=== PATIENT | male | born 1950 | race African-American/Black ===

== ENCOUNTER 2017-01-22 11:08 | Inpatient (IN) | payer MEDICARE, MEDICAID ==
[2017-01-22 12:45] LABS: Lactic Acid - Sepsis 1.7 mmol/L (0.5-2.2)
[2017-01-22 12:51] LABS: ALT (SGPT) 14 U/L (8-55); AST (SGOT) 20 U/L (5-34); Alkaline Phosphatase 71 U/L (40-150); Anion Gap 14 mmol/L (10-20); BUN (Urea Nitrogen) 23 mg/dL (8.4-25.7); Bilirubin, Total 0.6 mg/dL (0.2-1.2); Calc. Creatinine Clearance 0 mL/min (70-130); Carbon Dioxide 25 mmol/L (23-31); Chloride 102 mmol/L (98-107); Estimated GFR-MDRD 65; Globulin 3.2 g/dL (2.4-3.5); Lipase 108 U/L (8-78); Protein, Total 7.3 g/dL (5.8-8.1)
--- NOTE | 2017-01-22 12:53 | ULT ---
RIGHT LOWER EXTREMITY VENOUS ULTRASOUND: Comparison: None. History: Right lower extremity pain and edema. Technique: Multiplanar grayscale and color doppler images were obtained in a right lower extremity v enous ultrasound. Spectral analysis of the doppler waveforms were performed. FINDINGS: There is visible partially occlusive thrombus in the mid right superficial femoral vein extending do wn to the popliteal vein. The more proximal venous structures including the common femoral vein and profunda femoral veins show no evidence of thrombus. The right posterior tibial vein and greater sap henous vein are patent without evidence of thrombus. IMPRESSION: DVT seen within the superficial femoral vein extending down to the popliteal vein. POS: DHAVAL
[2017-01-22] MEDS ORDERED: Ondansetron HCl/PF 4 MG/2 ML Vial ONE (13:07)
[2017-01-22] MEDS ORDERED: Piperacillin/Tazobactam 4.5 GM VIAL ONE (13:15)
--- NOTE | 2017-01-22 13:19 | CT ---
CT ABDOMEN AND PELVIS WITHOUT CONTRAST: HISTORY: Lower abdominal pain with fever since last night. The patient has a history of a renal transplant i 2014 and is still on immunosuppressants for the transplant. COMPARISON: None. TECHNIQUE: Multiple contiguous axial images were obtained in a CT of the abdomen and pelvis without contrast. Coronal reformats were performed. FINDINGS: The [place] kidneys are small and atrophic. A transplant kidney is seen at the right aspect of the p shilpa. This appears relatively hypodense, compared to normal renal parenchyma. The liver, gallblad elaina, adrenal glands, spleen, and pancreas are unremarkable on this limited noncontrast examination. Scattered diverticula are seen in the colon. The small bowel and appendix are unremarkable. No abd ominal or pelvic lymphadenopathy is present. Degenerative changes are seen in the supine. The visualized inferior thorax and abdominal wall soft tissues are unremarkable. IMPRESSION: 1. Diverticulosis. 2. Questionable hypodense appearance of the renal transplant. Correlate with laboratory values. 3. Small atrophic [place] kidneys. POS: DHAVAL
[2017-01-22] MEDS ORDERED: Vancomycin HCl 1.25 GM, Admixture Fee 1 EACH in Sodium Chloride 0.9% 250 ML 250 ML IVPB SCH (13:30)
[2017-01-22 13:52] LABS: #Lymphocytes 0.6 thou/uL (1.20-3.40); #Monocytes 0.8 thou/uL (0.11-0.59); %Basophils 0.1 % (0.0-1.0); %Eosinophils 0.1 % (0.0-10.0); %Monocytes 8.9 % (0.0-10.0); Hematocrit 42.1 % (42.0-52.0); Mean Platelet Volume 8.4 fL (7.4-10.4); Red Blood Cell (RBC) Count 4.54 mill/uL (4.70-6.10); White Blood Cell (WBC) Count 9.4 thou/uL (4.8-10.8)
[2017-01-22] MEDS ORDERED: Ondansetron HCl/PF 4 MG/2 ML Vial IVP PRN (13:58)
[2017-01-22] MEDS ORDERED: Calcium Carbonate 500 MG ChewTAB PO PRN (13:58)
[2017-01-22] MEDS ORDERED: Mag-Al 1200 mg/1200 mg/30 ML UDCUP PO PRN (13:58)
[2017-01-22] MEDS ORDERED: Milk Of Magnesia 30 ML UDCUP PO PRN (13:58)
[2017-01-22] MEDS ORDERED: Cefepime 2 GM in Sodium Chloride 0.9% 100 ML IVPB SCH (14:15)
--- NOTE | 2017-01-22 14:54 | RAD ---
RADIOGRAPH CHEST 1 VIEW: Date: 01-22-17 Time: 2:16 p.m. HISTORY: 66-year-old male with hypoxia and fever. COMPARISON: None. FINDINGS: The lung apices are clear. No pneumothorax. Inspiration is shallow. The left hemidiaphragm is shaggy , and there is increased attenuation at the left base. There are horizontal streaky densities at the right base. No pulmonary edema. The cardiac shadow is obscured inferior to the diaphragm. IMPRESSION: 1. Poor visualization of the bilateral lower lobes due to shallow inspiration and due to the fact th at this is a single view study. 2. Airspace density at left lower lobe. 3. Subsegmental atelectasis and/or scar at right base. 4. A lateral view would be useful to better evaluate the posterior lung bases. [place] POS: DHAVAL
[2017-01-22] MEDS ORDERED: cycloSPORINE, Modified 25 MG CAP PO SCH (15:00)
[2017-01-22] MEDS ORDERED: HYDROcodone/Acetaminophen 5/325 mg Tablet ONE (15:07)
[2017-01-22 15:24] LABS: Bilirubin Negative (Negative); Blood, Urine Negative (Negative); Glucose, Urine (Dipstick) Negative (Negative); Ketone, Urine Negative (Negative); Nitrite Negative (Negative); Protein, Urine (Dipstick) Negative (Neg-Trace); Urobilinogen 0.2 mg/dL (0.2-1.0)
[2017-01-22 15:29] LABS: Bacteria/HPF None Seen HPF (None Seen); Hyaline Casts/LPF 0-3 HYALINE CAST LPF (0-3 Hyaline); RBC/HPF 0-3 HPF (0-3); Squamous Epithelial None Seen HPF (0-3); WBC/HPF 0-3 HPF (0-3)
[2017-01-22 15:54] VITALS: BMI 28.0
[2017-01-22] MEDS: HYDROcodone/Acetaminophen 5/325 mg Tablet PO PRN ×2 (16:07→20:28)
[2017-01-22] MEDS: Sodium Chloride 0.9% 1,000 ML IV SCH ×2 (16:08→21:27)
[2017-01-22] MEDS: Cefepime 2 GM in Sodium Chloride 0.9% 100 ML IVPB SCH (16:11)
--- NOTE | 2017-01-22 16:19 | HP-2 ---
DATE OF ADMISSION: 01/21/2017 The patient is seen at 1400 hours. CODE STATUS: FULL. PRIMARY CARE PHYSICIAN: Rabia Hurd M.D. ADMITTING ATTENDING: Bethany Pearce D.O. ADMITTING RESIDENT: Rabia Hurd M.D., PGY-3. HISTORIAN: Patient. CHIEF COMPLAINT: Nausea, leg pain, fever. HISTORY OF PRESENT ILLNESS: Patient is a very pleasant 66-year-old black male with past medical history significant for renal transplant secondary to renal failure from hypertension, treated hep C and childhood polio with limited mobility, who presents to the Emergency Department with 1 day history of nausea and vomiting as well as right lower extremity pain. Patient states that yesterday evening, he noticed that he was having some pain in his right groin area as well as going down to his right lower leg, which he noticed was swollen and warm. He went to bed hoping that the pain would improve, when woke up this morning, and his leg looked much worse and it was red. He called his brother this morning stating that he was not feeling very well and had 2 episodes of mucus emesis last night. He had a temperature of 101 at home. On ambulance, he had a temperature of 101.5. He is being treated with immunosuppressive therapy including Myfortic, prednisone, and cyclosporine for his renal transplant. In the Emergency Department, patient was treated for his immunosuppressed fever with vancomycin and Zosyn. He was also found to have a right lower extremity DVT on duplex ultrasound. In the Emergency Department, he also received morphine, Zofran, and a normal saline bolus at 30 mL per kilogram. PAST MEDICAL HISTORY: 1. Chronic kidney disease stage 3, status post renal transplantation. 2. History of renal failure secondary to hypertension. 3. Hypertension. 4. Benign prosthetic hyperplasia. 5. Lower back spasms. 6. Severe degenerative joint disease. 7. Immunosuppressed secondary to immunosuppressive therapy for renal transplantation. 8. Hepatitis C treated and cured. 9. Childhood history of polio limiting mobility. PAST SURGICAL HISTORY: 1. Three knee replacements (2 of the left). 2. Renal transplantation. 3. Bilateral cataract surgery, multiple times. 4. Hemorrhoidectomy. 5. Thyroidectomy. 6. Three AV fistulas. ALLERGIES: NSAIDS, SULFA, HEPARIN. MEDICATIONS: 1. Viagra 25 mg as needed prior to sexual activity. 2. Flomax 0.4 mg daily. 3. Prednisone 5 mg p.o. daily. 4. Myfortic 360 mg p.o. b.i.d. 5. Labetalol 300 mg p.o. b.i.d. 6. Lasix 20 mg p.o. b.i.d. 7. Finasteride 5 mg p.o. daily. 8. Cyclosporine 25 mg p.o. 3 times daily. 9. Calcium plus vitamin D supplementation. 10. Amlodipine 5 mg p.o. b.i.d. FAMILY HISTORY: Patient has no significant past family history related to PVD and patient has no personal history of previous DVT. SOCIAL HISTORY: The patient does not use tobacco, alcohol or drugs. He lives at home alone. He and his brother lives in the area close to him. He has a caregiver that helps him with daily tasks such as cooking and cleaning. REVIEW OF SYSTEMS: Ten-point review of systems was conducted. Pertinent positives are mentioned in the HPI. All others are negative. PHYSICAL EXAMINATION: VITAL SIGNS: Blood pressure 134/73, pulse 93, respirations 19, T-max 98.9, pulse oximetry 91% on room air, current weight 92.9 kilograms. GENERAL: The patient is alert and oriented x3. He does not appear in distress. He is well developed, appropriately interactive with the interview and exam. EYES: Pupils are equally round and reactive to light and accommodation. Conjunctivae are within normal limits. Extraocular muscles are intact. ENT: TMs are pearly garcia without bulging or erythema. Nasal mucosa and oropharynx moist without erythema. NECK: Supple, no lymphadenopathy, no thyromegaly. CARDIOVASCULAR: Regular rate and rhythm, no murmurs, gallops, clicks or rubs. Radial pulses +2. RESPIRATIONS: Normal effort, no retractions. Lungs are clear to auscultation bilaterally. No wheezes, rales, rubs, or rhonchi. SKIN: Free of cyanosis or lesions. MUSCULOSKELETAL: The right lower extremity from the knee to the top of the foot is significant for edema, warmth and redness compared to the left lower extremity. The right lower extremity is tender to touch. ABDOMEN: Soft, nontender to palpation. Normal bowel sounds in all 4 quadrants. Slightly distended. No CVA tenderness. Significant for right lower quadrant surgical scar from renal transplantation. EXTREMITIES: As mentioned above. MUSCULOSKELETAL: Structures within normal limits. Tone within normal limits. Muscle strength 4/5. Full range of motion though patient has limited gait secondary to degenerative joint disease. Patient has significant muscle tension of lumbar paraspinal muscles. NEUROLOGIC: No focal deficits. PSYCHIATRIC: Appropriate. LABORATORY DATA: White count 9.4, hemoglobin 12.9, hematocrit 42.1, and platelets 117. Sodium 137, potassium 4.3, chloride 102, bicarbonate 25, BUN 23 , creatinine 1.33, glucose 102, GFR 65, calcium is 9, AST is 20, ALT is 14, alkaline phosphatase is 71, bilirubin is 0.6, protein is 7.3, albumin is 4.1, lipase is 108. Absolute neutrophil count is 7990. Lactic acid is 1.7. IMAGIN. Right lower extremity Doppler shows DVT of the right femoral vein. 2. CT stone protocol shows diverticulosis, atrophic [place] kidneys and renal transplant. ASSESSMENT AND PLAN: This is a 66-year-old male with: 1. Acute deep venous thrombosis of the right femoral vein. We will admit the patient to the medical service. We will start Xarelto for the deep venous thrombosis. Patient has an allergy to HEPARIN, significant for prolonged bleeding and has contraindication to Lovenox secondary to his renal transplantation. This is a provoked deep venous thrombosis and the patient is largely immobile so will need to be on therapy for at least 3-6 months as this is his first deep venous thrombosis. For pain control, we will not use nonsteroidal antiinflammatory drugs, but patient can have Tylenol, tramadol or [place] as needed depending on level of pain. 2. Neutropenic equivalent fever. The patient does not have neutropenia and his absolute neutrophil count is 7990, however, since he is on immunosuppressive therapy for his renal transplantation, we will treat him with cefepime for his recorded fevers at home and on ambulance. We have obtained blood cultures. Chest x-ray and UA are pending. 3. Chronic kidney disease 3 with history of renal transplantation. I have consulted patient's local application project leader, Dr. Lazar for guidance concerning obtaining a VQ scan versus pre-hydrating the patient to obtain a CTA of the chest to assess for pulmonary embolism, which patient is likely to have given his symptoms of shortness of breath and his hypoxia to 91% on room air at time of admission. This would not change therapy so we may not need a scan. 4. Hypertension. The patient's hypertension is adequately controlled and we will continue his home medications of labetalol and amlodipine. 5. Benign prostatic hypertrophy. The patient has very significant benign prostatic hypertrophy which we will treat with his home regimen of Flomax and finasteride. 6. Degenerative joint disease. We will treat as needed with pain medications as listed above. 7. Childhood polio with limited mobility. Patient is in the process of having home health arranged in our office. We will have PT come and work with him to assess for further needs. The patient will also need a walker as he didn't bring his from home. 8. Elevated lipase. The patient does not clinically have symptoms concerning for pancreatitis and we cannot obtain a CT with contrast secondary to renal disease. However, we will hydrate the patient and recheck lipase. 9. Hepatitis C, this has been treated and cured. 10. Back spasming. We will treat pain as needed and consider muscle relaxers. 11. Deep venous thrombosis prophylaxis. We are treating patient for deep venous thrombosis with Xarelto. Disposition and length of stay in hospital, 2 days. Symptomatic medications will be provided. History and physical exam as well as management were discussed with Dr. Pearce. JUSTICE
[2017-01-22] MEDS: Rivaroxaban 15 MG TAB PO SCH (18:23)
[2017-01-22] MEDS: Mycophenolate ER 180 MG TAB PO SCH (18:25)
[2017-01-22] MEDS: Docusate 100 MG CAP PO SCH (20:15)
[2017-01-22] MEDS: Tamsulosin HCl 0.4 MG CAP PO SCH (20:15)
[2017-01-22] MEDS: cycloSPORINE, Modified 25 MG CAP PO SCH (20:16)
[2017-01-22] MEDS: Labetalol HCl 100 MG TAB PO SCH (20:28)
[2017-01-22] MEDS ORDERED: FLU VACC TS2017-18 (>65YR) 0.5 ML SYRINGE IM ONE (21:00)
[2017-01-23] MEDS: Cefepime 2 GM in Sodium Chloride 0.9% 100 ML IVPB SCH ×3 (00:01→16:24)
[2017-01-23] MEDS: Sodium Chloride 0.9% 1,000 ML IV SCH (00:05)
[2017-01-23] MEDS: HYDROcodone/Acetaminophen 5/325 mg Tablet PO PRN ×3 (00:08→08:49)
[2017-01-23 06:03] LABS: Prothrombin Time 27.2 SEC (12.0-14.7)
[2017-01-23 06:04] LABS: PTT 55.8 SEC (22.9-36.1)
[2017-01-23 06:10] LABS: #Lymphocytes 0.9 thou/uL (1.20-3.40); #Monocytes 0.7 thou/uL (0.11-0.59); #Neutrophils 6.7 thou/uL (1.40-6.50); %Basophils 0.4 % (0.0-1.0); %Eosinophils 0.1 % (0.0-10.0); %Lymphocytes 10.8 % (21.0-51.0); %Monocytes 8.6 % (0.0-10.0); Hematocrit 37.1 % (42.0-52.0); Mean Platelet Volume 7.9 fL (7.4-10.4); Red Blood Cell (RBC) Count 3.98 mill/uL (4.70-6.10); White Blood Cell (WBC) Count 8.3 thou/uL (4.8-10.8)
[2017-01-23 06:29] LABS: ALT (SGPT) 10 U/L (8-55); AST (SGOT) 16 U/L (5-34); Alkaline Phosphatase 70 U/L (40-150); Anion Gap 11 mmol/L (10-20); BUN (Urea Nitrogen) 16 mg/dL (8.4-25.7); Bilirubin, Total 0.8 mg/dL (0.2-1.2); Calc. Creatinine Clearance 71 mL/min (70-130); Calcium 8.1 mg/dL (7.8-10.44); Carbon Dioxide 22 mmol/L (23-31); Chloride 106 mmol/L (98-107); Estimated GFR-MDRD 64; Globulin 2.8 g/dL (2.4-3.5)
--- NOTE | 2017-01-23 06:38 | PDOC.FM ---
- Subjective Subjective: Pt endorses lower back pain, difficulty breathing, and groin pain where the DVT is located. - Objective Vital Signs & Weight: Vital Signs (12 hours) Temp Pulse Resp BP BP Pulse Ox 01/23/17 04:00 98.2 F 80 22 H 120/67 97 01/23/17 00:27 87 24 H 90 L 01/23/17 00:00 99 F 79 24 H 114/64 91 L 01/22/17 20:28 94 125/75 01/22/17 20:15 94 125/75 01/22/17 20:00 100.1 F H 94 18 01/22/17 19:35 100.1 F H 94 18 125/75 94 L Weight Weight 94.007 kg I&O: 01/21/17 01/22/17 01/23/17 06:59 06:59 06:59 Intake Total 1550 Output Total 600 Balance 950 Result Diagrams: 01/23/17 05:39 01/23/17 05:39 Phys Exam - Physical Examination HEENT: PERRLA, moist MMs injection of conjunctiva bilaterally Neck: no nodes Respiratory: no wheezing coarse breath sounds Cardiovascular: RRR, no significant murmur Gastrointestinal: soft, non-tender 2+ pitting edema bilaterally Neurological: non-focal, normal sensation Psychiatric: normal affect, A&O x 3 Deviation from normal: swollen erythematous right groin Dx/Plan (1) Right femoral vein DVT Code(s): I82.411 - ACUTE EMBOLISM AND THROMBOSIS OF RIGHT FEMORAL VEIN Status : Acute (2) Renal transplant recipient Code(s): Z94.0 - KIDNEY TRANSPLANT STATUS Status: Acute (3) CKD stage G3b/A2, GFR 30-44 and albumin creatinine ratio 30-299 mg/g Code(s): N18.3 - CHRONIC KIDNEY DISEASE, STAGE 3 (MODERATE) Status: Acute (4) HTN (hypertension) Code(s): I10 - ESSENTIAL (PRIMARY) HYPERTENSION Status: Acute (5) BPH (benign prostatic hyperplasia) Code(s): N40.0 - BENIGN PROSTATIC HYPERPLASIA WITHOUT LOWER URINRY TRACT SYMP Status: Acute (6) History of poliomyelitis without residual effect Code(s): Z86.12 - PERSONAL HISTORY OF POLIOMYELITIS Status: Acute (7) Hepatitis C Code(s): B19.20 - UNSPECIFIED VIRAL HEPATITIS C WITHOUT HEPATIC COMA Status: Acute - Plan Plan: 66 yo m with CKD stage 3 s/p renal transplant on immunosuppression presented with r swollen, erythematous lower extremity admitted for a right femoral vein DVT. 1.)DVT, provoked from immobility, right femoral vein, with possible PE. Plan: Continue Xarelto. Decided against obtaining CTPA for PE rule out d/t patient's poor kidney function. Pt endorsed shortness of breath last night acutely. Will continue duonebs TID and supplemental O2. Pt currently requiring 3L. Will also obtain prior echo report. Pt's lasix was changed to 20mg IV BID. 2.)CKD, stage 3, s/p renal transplant on immunosuppression, worsening Cr today. -Dc'd fluids as pt is not getting a CTPA, has 2+ pitting edema in bilateral lower extremities and was complaining of puffiness in his face. Nephrology consulted. Will continue to follow recommendations. 3.)HTN-controlled -Continue amlodipine and labetalol 4.)BPH -finasteride and flomax 5.)childhood polio, with residual limited mobility
[2017-01-23] MEDS: cycloSPORINE, Modified 25 MG CAP PO SCH ×2 (08:51→20:51)
[2017-01-23] MEDS: Mycophenolate ER 180 MG TAB PO SCH ×2 (08:51→17:31)
[2017-01-23] MEDS: Rivaroxaban 15 MG TAB PO SCH ×2 (08:51→17:31)
[2017-01-23] MEDS: Finasteride 5 MG TAB PO SCH (08:52)
[2017-01-23] MEDS: predniSONE 5 MG TAB PO SCH (08:52)
[2017-01-23] MEDS: Labetalol HCl 100 MG TAB PO SCH ×2 (08:53→20:52)
[2017-01-23] MEDS: Docusate 100 MG CAP PO SCH ×2 (08:53→20:52)
[2017-01-23] MEDS ORDERED: HYDROcodone/Acetaminophen 5/325 mg Tablet PO PRN (08:57)
[2017-01-23] MEDS ORDERED: Furosemide 20 MG TAB PO SCH (09:00)
[2017-01-23] MEDS: Acetaminophen 500 MG TAB PO SCH ×2 (09:27→20:53)
[2017-01-23] MEDS: HYDROcodone/Acetaminophen 7.5/325 mg Tablet PO PRN ×3 (09:27→19:17)
--- NOTE | 2017-01-23 09:27 | CON ---
DATE OF CONSULTATION: 01/23/2017 HISTORY OF PRESENT ILLNESS: Mr. Kramer is a 66-year-old black male with history of kidney transp lantation and admitted for leg pain -- he underwent a Doppler of the right leg which showed a DVT. He is also being treated for possible cellulitis. We are now being consulted for his renal transplantation. Please note this patient was initially se en at the renal clinic and his creatinine was noted at 1.63. At that time, I decided to stop his en alapril. This improved his creatinine from 1.6-1.47. Most recent lab work shows a creatinine of 1. 3. REVIEW OF SYSTEMS: Positive for leg edema. No nausea, no vomiting, occasional shortness of breath, no syncopal episode, no headache, no diplopia. Appetite fair. Energy level is fair. No nausea, n o vomiting, ? of fever. No hematochezia, no melena, no hematemesis. No gross hematuria. No dysuri a. No urinary frequency. MEDICATIONS: Includes [place] 5/325 q.4 p.r.n., DuoNeb q.4 p.r.n., Tums 1000 mg q.4 p.r.n., cefepime 2 grams IV q.8, cyclosporine 75 mg p.o. b.i.d., Colace 100 mg p.o. b.i.d., Proscar 5 mg daily, furos emide 20 mg b.i.d., labetalol 300 mg p.o. b.i.d., lactulose p.r.n., Zofran 4 mg IV q.6, prednisone 5 mg p.o. once a day, Myfortic 360 mg p.o. b.i.d., Flomax 0.4 mg p.o. at bedtime. PAST MEDICAL HISTORY: Status post hepatitis C -- resolved -- status post treatment -- status post E SRD from hypertensive nephropathy, chronic low back pain status post poliomyelitis, status post desiree o syndrome, longstanding hypertension, DJD, BPH. PAST SURGICAL HISTORY: Status post renal transplant in 08/2014, status post bilateral knee replacem ent, status post thyroidectomy, status post AV fistula placement, status post hemorrhoidectomy, stat us post cuffed dialysis catheter placement, status post cataract surgery, status post upper and lowe r GI endoscopy. SOCIAL HISTORY: The patient currently lives in [place], but originally from [place]. 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 No history of smoking, no alcohol intake, no IV drug abuse. Status post marijuana use when he was younger. Education, high school. 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 Status post blood transfusion. FAMILY HISTORY: No family history of ESRD. ALLERGIES: HEPARIN, SULFA, NSAIDS. TRAUMA: Status post left elbow fracture. IMMUNIZATIONS: Up to date. HOSPITALIZATIONS: Please see past medical history. PHYSICAL EXAMINATION: VITAL SIGNS: Blood pressure 120/67, heart rate 80, respiratory rate 22, temperature 98.2, and pulse ox is 97%. GENERAL: Noted to be awake, alert, ambulatory, not in distress. SKIN: Adequate turgor. HEENT: Pinkish conjunctivae, anicteric sclerae. NECK: No neck mass, no carotid bruits, no JVD. CHEST: No deformities. LUNGS: Clear breath sounds. HEART: Normal sinus rhythm. No murmur, no gallops, no rubs. ABDOMEN: Globular, soft, nontender, no masses. EXTREMITIES: Trace edema. No deformities. NEUROLOGIC: Awake and oriented to 3 spheres. Moving all extremities. No tremors, no asterixis, no ataxia. LABORATORY DATA: Laboratories of 01/23/2017, white count 8.2, hemoglobin 11.4. Sodium 135, potass[place] um 3.9, chloride 106, carbon dioxide 22, BUN 16, creatinine 1.35, glucose 97, albumin 3.2. PTH is 9 6.6. Lipase 108. Urinalysis, no casts, specific gravity 1019. INR 2.4. White count 8.2, hemoglob in 11.4. ASSESSMENT AND PLAN: 1. Right leg deep venous thrombosis - currently the patient is on Xarelto at 15 mg p.o. b.i.d. Con tinue current anticoagulation. 2. Status post renal transplant, stable renal function. Creatinine is near baseline. Creatinine 1 .3. He is actually improved from the clinic visit of a few months ago which was 1.47. At that time , I discontinued his enalapril. I will continue current immunosuppressive regimen. My last cyclosp orine level was therapeutic at 88, that was a few months ago. We will be rechecking another cyclosp orine level. For the moment, agree with current management. There is no indication for any dialyti c intervention. 3. Leg edema -- on low dose diuretics. Continue supportive care. I agree to hold off IV fluid wit h this patient. I do not think we need to proceed with pulmonary embolism workups since the patient has a diagnosis of DVT and is currently management is essentially the same. Continue Xarelto. Thank you for the consult. We will continue to follow. Recheck base met and CBC in a.m.
--- NOTE | 2017-01-23 14:11 | ADD-PRG ---
DATE OF SERVICE: 01/23/2017 This is an addendum to the note of Dr. Aixa Oliva. Mr. Kramer is a pleasant 66-year-old black male patient admitted with a DVT of his right thigh. He also had an episode of respiratory distress last evening suggesting the possibility of pulmonary embolus. However, given that he has chronic kidney disease and has had a renal transplant, we have opted to avoid CT contrast and to continue treatment for DVT and PE with Xarelto. Should he deteriorate we could proceed with V/Q scan, but for now, the result would not alter our treatment. He has no history of smoking. No history of asthma or chronic obstructive pulmonary disease. We will proceed also with echocardiogram to rule out other causes of possible respiratory distress and hypoxia. In any event, currently he is sitting quietly in bed, in no distress, respiratory or otherwise. He is complaining of right groin and right thigh pain. MTDD
[2017-01-23] MEDS: Tamsulosin HCl 0.4 MG CAP PO SCH (20:52)
[2017-01-23] MEDS: Acetaminophen 325 MG TAB PO PRN (20:52)
[2017-01-23] MEDS: Furosemide 20 MG/2 ML VIAL SLOW IVP SCH (20:53)
[2017-01-24] MEDS: Cefepime 2 GM in Sodium Chloride 0.9% 100 ML IVPB SCH ×3 (00:09→18:34)
[2017-01-24] MEDS: HYDROcodone/Acetaminophen 7.5/325 mg Tablet PO PRN ×3 (03:39→20:02)
[2017-01-24 06:22] LABS: Anion Gap 10 mmol/L (10-20); BUN (Urea Nitrogen) 19 mg/dL (8.4-25.7); Calc. Creatinine Clearance 66 mL/min (70-130); Calcium 8.1 mg/dL (7.8-10.44); Carbon Dioxide 24 mmol/L (23-31); Chloride 108 mmol/L (98-107); Estimated GFR-MDRD 59; Lipase 57 U/L (8-78)
--- NOTE | 2017-01-24 06:57 | PDOC.FM ---
- Objective Vital Signs & Weight: Vital Signs (12 hours) Temp Pulse Resp BP Pulse Ox 01/24/17 04:38 98 01/23/17 20:52 69 01/23/17 20:00 98.2 F 69 20 123/70 99 Weight Weight 94.007 kg I&O: 01/22/17 01/23/17 01/24/17 06:59 06:59 06:59 Intake Total 1550 800 Output Total 600 350 Balance 950 450 Result Diagrams: 01/23/17 05:39 01/24/17 05:47 Dx/Plan (1) Right femoral vein DVT Code(s): I82.411 - ACUTE EMBOLISM AND THROMBOSIS OF RIGHT FEMORAL VEIN Status : Acute (2) Renal transplant recipient Code(s): Z94.0 - KIDNEY TRANSPLANT STATUS Status: Acute (3) CKD stage G3b/A2, GFR 30-44 and albumin creatinine ratio 30-299 mg/g Code(s): N18.3 - CHRONIC KIDNEY DISEASE, STAGE 3 (MODERATE) Status: Acute (4) HTN (hypertension) Code(s): I10 - ESSENTIAL (PRIMARY) HYPERTENSION Status: Acute (5) BPH (benign prostatic hyperplasia) Code(s): N40.0 - BENIGN PROSTATIC HYPERPLASIA WITHOUT LOWER URINRY TRACT SYMP Status: Acute (6) History of poliomyelitis without residual effect Code(s): Z86.12 - PERSONAL HISTORY OF POLIOMYELITIS Status: Acute (7) Hepatitis C Code(s): B19.20 - UNSPECIFIED VIRAL HEPATITIS C WITHOUT HEPATIC COMA Status: Acute - Plan Plan: 66 yo m with CKD stage 3 s/p renal transplant on immunosuppression presented with r swollen, erythematous lower extremity admitted for a right femoral vein DVT. 1.)DVT, provoked from immobility, right femoral vein, with possible PE. Plan: Continue Xarelto. Decided against obtaining CTPA for PE rule out d/t patient's poor kidney function. Pt endorsed shortness of breath last night acutely. Will continue duonebs TID and supplemental O2. Pt currently requiring 3L. Will also obtain prior echo report. Pt's lasix was changed to 20mg IV BID. 2.)CKD, stage 3, s/p renal transplant on immunosuppression, worsening Cr today. -Dc'd fluids as pt is not getting a CTPA, has 2+ pitting edema in bilateral lower extremities and was complaining of puffiness in his face. Nephrology consulted. Will continue to follow recommendations. 3.)HTN-controlled -Continue amlodipine and labetalol 4.)BPH -finasteride and flomax 5.)childhood polio, with residual limited mobility
[2017-01-24] MEDS: Acetaminophen 500 MG TAB PO SCH ×2 (08:25→20:02)
[2017-01-24] MEDS: predniSONE 5 MG TAB PO SCH (08:29)
[2017-01-24] MEDS: Finasteride 5 MG TAB PO SCH (08:30)
[2017-01-24] MEDS: Docusate 100 MG CAP PO SCH ×2 (08:30→20:03)
[2017-01-24] MEDS: Furosemide 20 MG/2 ML VIAL SLOW IVP SCH ×2 (08:30→20:03)
[2017-01-24] MEDS: Labetalol HCl 100 MG TAB PO SCH ×2 (08:30→20:01)
[2017-01-24] MEDS: Mycophenolate ER 180 MG TAB PO SCH ×2 (08:31→17:59)
[2017-01-24] MEDS: cycloSPORINE, Modified 25 MG CAP PO SCH ×2 (08:31→20:01)
[2017-01-24] MEDS: Rivaroxaban 15 MG TAB PO SCH ×2 (08:32→17:59)
--- NOTE | 2017-01-24 11:36 | ADD-PRG ---
DATE OF SERVICE: 01/24/2017 This is an addendum to the note of Dr. Aixa Oliva. Mr. Kramer is doing well. He has had no further episodes of respiratory distress. He does have some blood tinged sputum which might be more from nasal drainage than from his chest. He denies any chest pain or shortness of breath this morning. He continues to take Xarelto for DVT and possible PE. We will also check a PSA given that he is black with a recent DVT suggesting the possibility of malignancy. He had a colonoscopy within the last year with the findings of polyps, although he sharma s not know what type. For now, we will continue on Xarelto, continue to monitor his respiratory sta tus and check an echo.
--- NOTE | 2017-01-24 11:44 | HP ---
DATE OF ADMISSION: 01/22/2017 ATTENDING: Dr. Bethany Pearce. RESIDENT: Dr. Rabia Hurd. Dr. Hurd's H and P reviewed and case discussed. Pertinent portions of the history and physical we re repeated by myself on the date of admission. I agree with the assessment and plan with the [facility] addendum. HISTORY OF PRESENT ILLNESS: Mr. 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 He was experiencing some short of breath on admission. Imaging for PE will be discussed with his configuration management specialist. He has been started on novel anticoagulant, Xarleto, as he has a history of significant bleeding with heparin. In addition, he presents with f ever. While this may be caused by his DVT due to his immunosuppressed state, he warrants a workup f or possible causes. Chest x-ray appears to be normal. We will obtain blood and urine cultures and continue on cefepime until his workup has been completed.
--- NOTE | 2017-01-24 16:32 | PRG ---
DATE OF SERVICE: 01/24/2017 SUBJECTIVE: Mr. Kramer is a 66-year-old black male being followed up for his cadaveric renal tra nsplant. He is doing stable from a renal point of view. We are continuing his current immunosuppre ssive regimen. He was initially admitted for right leg swelling and pain. He was diagnosed to have a DVT. He is on anticoagulation. He voices no new complaints today. He does have some blood ting ed nasal discharge, but they were noted to be dry clots. He does not complain of any other active b leeding. OBJECTIVE: VITAL SIGNS: Blood pressure is 110/72, heart rate 68, respiratory rate 18, temperature 98.2, pulse ox 92%. GENERAL: Noted to be awake, alert, supine, comfortable, not in distress. SKIN: Adequate turgor. HEENT: Pinkish conjunctivae, anicteric sclerae. NECK: No neck mass, no carotid bruits, no JVD. CHEST: No deformities. LUNGS: Decreased breath sounds. HEART: Normal sinus rhythm. No murmur, no gallops, no rubs. ABDOMEN: Globular, soft, nontender, no masses. EXTREMITIES: Positive for edema, but no deformities. MEDICATIONS: 01/24/2017 - Reviewed. LABORATORY: 01/23/2017 - White count 8.3, hemoglobin 11.4, sodium 138, potassium 4.1, chloride 108 , carbon dioxide 24, BUN 19, creatinine 1.44, calcium 8.1. PSA 0.25, lipase 57. Cyclosporine level is currently pending. ASSESSMENT AND PLAN: 1. Status post cadaveric renal transplant, stable renal function. Creatinine of 1.4 for is near ba seline. Continue current immunosuppressive regimen. No changes to be made with his CellCept, tacro limus, and prednisone. No indication for any biopsy of the renal allograft. 2. Leg edema. My bias is to discontinue his amlodipine since this may be playing a factor in the l eg edema. In addition, the patient's cardiac echo showed a normal ejection fraction. If the renal function further worsens, we may need to consider holding off the IV diuretics. 3. Right deep venous thrombosis on anticoagulation. Overall, I agree with the current management.
[2017-01-24] MEDS: Tamsulosin HCl 0.4 MG CAP PO SCH (20:02)
[2017-01-25] MEDS: Cefepime 2 GM in Sodium Chloride 0.9% 100 ML IVPB SCH ×2 (00:55→08:29)
[2017-01-25] MEDS: Acetaminophen 325 MG TAB PO PRN (04:19)
[2017-01-25] MEDS: HYDROcodone/Acetaminophen 7.5/325 mg Tablet PO PRN ×3 (04:20→19:48)
[2017-01-25 05:25] LABS: #Eosinphils 0.1 thou/uL (0.0-0.7); #Monocytes 0.7 thou/uL (0.11-0.59); #Neutrophils 3.4 thou/uL (1.40-6.50); %Basophils 0.6 % (0.0-1.0); %Eosinophils 1.5 % (0.0-10.0); %Lymphocytes 19.9 % (21.0-51.0); %Monocytes 12.9 % (0.0-10.0); Hematocrit 37.2 % (42.0-52.0); Red Blood Cell (RBC) Count 3.98 mill/uL (4.70-6.10); White Blood Cell (WBC) Count 5.2 thou/uL (4.8-10.8)
[2017-01-25 05:38] LABS: Anion Gap 12 mmol/L (10-20); BUN (Urea Nitrogen) 14 mg/dL (8.4-25.7); Calc. Creatinine Clearance 79 mL/min (70-130); Calcium 8.4 mg/dL (7.8-10.44); Carbon Dioxide 25 mmol/L (23-31); Chloride 103 mmol/L (98-107); Estimated GFR-MDRD 72
--- NOTE | 2017-01-25 07:24 | PDOC.FM ---
- Subjective Subjective: Complaining of right sided thoracic/scapular pain and dizziness. - Objective Vital Signs & Weight: Vital Signs (12 hours) Temp Pulse Resp Pulse Ox 01/25/17 06:52 67 20 95 01/24/17 22:11 69 20 97 01/24/17 20:01 77 01/24/17 20:00 98.1 F 77 20 95 Weight Weight 94.007 kg I&O: 01/24/17 01/25/17 01/26/17 06:59 06:59 06:59 Intake Total 800 Output Total 350 775 Balance 450 -775 Result Diagrams: 01/25/17 04:48 01/25/17 04:48 Phys Exam - Physical Examination Constitutional: NAD HEENT: PERRLA, moist MMs Respiratory: no wheezing, no rales, clear to auscultation bilateral Cardiovascular: RRR, no significant murmur, no rub Gastrointestinal: soft, non-tender, no distention, positive bowel sounds Musculoskeletal: no edema, pulses present no evidence of muscle spasm, no erythema, but TTP of right thoracic pain. Neurological: non-focal, normal sensation Psychiatric: normal affect, A&O x 3 Skin: no rash Dx/Plan (1) Right femoral vein DVT Code(s): I82.411 - ACUTE EMBOLISM AND THROMBOSIS OF RIGHT FEMORAL VEIN Status : Acute (2) Renal transplant recipient Code(s): Z94.0 - KIDNEY TRANSPLANT STATUS Status: Acute (3) CKD stage G3b/A2, GFR 30-44 and albumin creatinine ratio 30-299 mg/g Code(s): N18.3 - CHRONIC KIDNEY DISEASE, STAGE 3 (MODERATE) Status: Acute (4) HTN (hypertension) Code(s): I10 - ESSENTIAL (PRIMARY) HYPERTENSION Status: Acute (5) BPH (benign prostatic hyperplasia) Code(s): N40.0 - BENIGN PROSTATIC HYPERPLASIA WITHOUT LOWER URINRY TRACT SYMP Status: Acute (6) History of poliomyelitis without residual effect Code(s): Z86.12 - PERSONAL HISTORY OF POLIOMYELITIS Status: Acute (7) Hepatitis C Code(s): B19.20 - UNSPECIFIED VIRAL HEPATITIS C WITHOUT HEPATIC COMA Status: Acute - Plan Plan: 1.)DVT, provoked from immobility, right femoral vein, with possible PE. Plan: Continue Xarelto. Respiratory distress likely 2/2 possible PE. Patient has norco 7.5/325 q4hr and 1000mg tylenol BID for pain. PSA normal DC cefepime 2.)Diastolic dysfunction- Echo showed diastolic dysfunction, MR, TR and a preserved ejection fraction. No signs of volume overload of acute CHF. -Will change Lasix to PO. 2.)CKD, stage 3, s/p renal transplant on immunosuppression, Cr at baseline -improved function today. -Will change lasix to PO 3.)HTN-controlled -Amlodipine held d/t lower extremity edema -Labatolol continued. 4.)BPH -finasteride and flomax 5.)childhood polio, with residual limited mobility
[2017-01-25] MEDS: predniSONE 5 MG TAB PO SCH (08:28)
[2017-01-25] MEDS: cycloSPORINE, Modified 25 MG CAP PO SCH ×2 (08:28→20:49)
[2017-01-25] MEDS: Finasteride 5 MG TAB PO SCH (08:28)
[2017-01-25] MEDS: Labetalol HCl 100 MG TAB PO SCH ×2 (08:29→20:48)
[2017-01-25] MEDS: Acetaminophen 500 MG TAB PO SCH ×2 (08:29→20:52)
[2017-01-25] MEDS: Docusate 100 MG CAP PO SCH ×2 (08:29→20:51)
[2017-01-25] MEDS: Furosemide 20 MG/2 ML VIAL SLOW IVP SCH (08:29)
[2017-01-25] MEDS: Rivaroxaban 15 MG TAB PO SCH ×2 (08:29→16:35)
[2017-01-25] MEDS: Mycophenolate ER 180 MG TAB PO SCH ×2 (08:29→16:35)
--- NOTE | 2017-01-25 12:55 | RAD ---
3 VIEWS THORACIC SPINE: Date: 01/25/17 COMPARISON: None. HISTORY: Pain in the thoracic spine. Tenderness to palpation. FINDINGS: Three views of the thoracic spine show normal height and alignment of the vertebral bodies and inter vertebral discs without fracture or subluxation. There are bridging osteophytes throughout the thora cic spine. The visualized posterior ribs are unremarkable. IMPRESSION: Moderate degenerative changes of the thoracic spine without acute osseous abnormality. POS: [facility]
--- NOTE | 2017-01-25 13:38 | PRG ---
DATE OF SERVICE: 01/25/2017 SERVICE: Renal Medicine. SUBJECTIVE: Mr. Kramer is a 66-year-old black male being followed for his renal transplant. Ini francia, he came in with a creatinine ranging from 1.3-1.4. Adjustment of medications have been made . He is now currently on a smaller dose of Lasix 20 mg IV b.i.d. He was also diagnosed to have rig ht DVT. Currently, he is on anticoagulation. This morning, he denies any chest pain or shortness o f breath. Please note I discontinued the amlodipine due to the leg swelling and the low blood press ure. In addition, he is complaining of some occasional back pain. OBJECTIVE: VITAL SIGNS: Blood pressure 100/64, heart rate 77, respiratory rate 18, temperature 98.4 and pulse ox 92%. GENERAL: Noted to be awake, supine, comfortable, not in distress. SKIN: Adequate turgor. HEENT: Pinkish conjunctivae. Anicteric sclerae. NECK: No neck mass, no carotid bruits, no JVD. CHEST: No deformities. LUNGS: Decreased breath sounds. HEART: Normal sinus rhythm. No murmur, no gallops, no rubs. ABDOMEN: Globular, soft and nontender. No masses. EXTREMITIES: Trace edema. MEDICATIONS: Medications of 01/25/2017 reviewed. LABORATORY DATA: Laboratories of 01/25/2017; white count 5.2, hemoglobin 11.7 and hematocrit 37.2. Sodium 136, potassium 3.5, chloride 103, carbon dioxide 25, BUN 14, creatinine 1.21, GFR 52 mL per minute, glucose 110, calcium 8.4 and PSA 0.25. ASSESSMENT AND PLAN: 1. Status post cadaveric renal transplant, stable renal function. Creatinine is noted at 1.21, whi ch is noted at its best value. We will continue current immunosuppressive regimen. No changes to b e made. Awaiting results of cyclosporine level. 2. Leg edema/hypotension - I have discontinued the amlodipine. 3. Leg edema - If this remains stable or continues to improve, consider decreasing Lasix to once a day. 4. Right deep venous thrombosis, currently on anticoagulation. 5. Agree with current management, recheck basic metabolic panel and CBC in a.m.
--- NOTE | 2017-01-25 14:38 | PRG ---
DATE OF SERVICE: 01/25/2017 SUBJECTIVE: Mr. Kramre's only complaint this morning is some upper mid back pain that is not ple uritic in nature. He is not short of breath. He is not having any chest pain. He states that his leg and right thigh feel much better. OBJECTIVE: He is afebrile. His vital signs are stable. His lungs sound clear. His pain seems to be musculoskeletal and we will initiate treatment with a lidocaine patch as well a s checking an x-ray of the thoracic spine.
[2017-01-25] MEDS ORDERED: traMADol HCl 50 MG TAB PO PRN (20:45)
[2017-01-25] MEDS: Furosemide 20 MG TAB PO SCH (20:51)
[2017-01-25] MEDS: Tamsulosin HCl 0.4 MG CAP PO SCH (20:51)
[2017-01-26 06:27] LABS: Anion Gap 15 mmol/L (10-20); BUN (Urea Nitrogen) 14 mg/dL (8.4-25.7); Calc. Creatinine Clearance 85 mL/min (70-130); Calcium 8.9 mg/dL (7.8-10.44); Carbon Dioxide 25 mmol/L (23-31); Chloride 102 mmol/L (98-107); Estimated GFR-MDRD 79
[2017-01-26 06:42] LABS: Band 1 % (5-11); Hematocrit 41.3 % (42.0-52.0); Neutrophil 50 % (42-75); Red Blood Cell (RBC) Count 4.47 mill/uL (4.70-6.10); White Blood Cell (WBC) Count 4.2 thou/uL (4.8-10.8)
[2017-01-26] MEDS: predniSONE 5 MG TAB PO SCH (08:40)
[2017-01-26] MEDS: Mycophenolate ER 180 MG TAB PO SCH (08:40)
[2017-01-26] MEDS: Finasteride 5 MG TAB PO SCH (08:41)
[2017-01-26] MEDS: Docusate 100 MG CAP PO SCH (08:41)
[2017-01-26] MEDS: Rivaroxaban 15 MG TAB PO SCH (08:41)
[2017-01-26] MEDS: Acetaminophen 500 MG TAB PO SCH (08:41)
[2017-01-26] MEDS: cycloSPORINE, Modified 25 MG CAP PO SCH (08:41)
[2017-01-26] MEDS: Furosemide 20 MG TAB PO SCH (08:41)
[2017-01-26] MEDS: Labetalol HCl 100 MG TAB PO SCH (08:41)
[2017-01-26] MEDS ORDERED: Lidocaine 5% Patch TD SCH (09:00)
--- NOTE | 2017-01-26 10:39 | PRG ---
DATE OF SERVICE: 01/26/2017 RENAL MEDICINE SUBJECTIVE: The patient is a 66-year-old black male being followed up for his renal transplant. Re nal function has improved over time. Please note we have held off nifedipine temporarily. Blood pr essure is noted now at 150/89. Nifedipine was placed on hold due to the low blood pressure recently and the leg swelling. No complaints of chest pain or shortness of breath. Please note he was diagnosed and admitted for r ight DVT. He is on anticoagulation. PHYSICAL EXAMINATION: VITAL SIGNS: Blood pressure is 150/89, heart rate 77, respiratory rate 18, temperature 97.7, pulse ox is 90%-98%. GENERAL: Awake, alert, supine, comfortable. SKIN: Adequate turgor. HEENT: Pinkish conjunctivae. Anicteric sclerae. NECK: No neck mass, no carotid bruits, no JVD. CHEST: No deformities. LUNGS: Clear breath sounds. No wheezing, no crackles. HEART: Normal sinus rhythm. No murmur, no gallops, no rubs. ABDOMEN: Globular, soft, nontender, no masses. EXTREMITIES: Trace edema. MEDICATIONS: Medications of 01/26/2017 was reviewed. LABORATORY DATA: Laboratories of 01/26/2017; white count 4.2, hemoglobin 12.7, sodium 137, potassiu m 4.5, chloride 102, carbon dioxide 25, BUN 14, creatinine 1.12, GFR 79 mL per minute, calcium 8.9. ASSESSMENT AND PLAN: 1. Right deep venous thrombosis - patient currently on anticoagulation - on Xarelto. Continue curr ent management. 2. Leg edema on p.o. Lasix. 3. Hypertension - slightly higher blood pressure. I would probably hold off the amlodipine and we will redose him/reintroduce it in the outpatient setting. 4. Status post renal transplant, stable. Continue current immunosuppressive regimen. We will not change dosing of Prograf, CellCept, and prednisone at the present time. Please note, his last cyclo sporine level was noted at 58. I would be redoing this as an outpatient and we will see him a littl e sooner and repeat cyclosporine level. We should target cyclosporine to about 70-80.
[2017-01-26 11:51] VITALS: BP 142/82; TEMP 98.5
--- NOTE | 2017-01-26 14:11 | PDOC.FM ---
- Subjective Subjective: No complaints this morning. Pt not requiring oxygen overnight. - Objective MAR Reviewed: Yes Vital Signs & Weight: Vital Signs (12 hours) Temp Pulse Resp BP BP Pulse Ox 01/26/17 11:34 98.5 F 78 16 142/82 H 91 L 01/26/17 08:41 77 150/89 H 01/26/17 08:05 97.7 F 77 18 150/89 H 90 L 01/26/17 08:00 97.7 F 77 18 Weight Weight 94.007 kg I&O: 01/25/17 01/26/17 01/27/17 06:59 06:59 06:59 Intake Total 500 480 Output Total 775 2500 Balance -775 -1999 480 Result Diagrams: 01/26/17 05:35 01/26/17 05:35 Phys Exam - Physical Examination HEENT: PERRLA, moist MMs, sclera anicteric Respiratory: no wheezing, no rales, clear to auscultation bilateral Cardiovascular: RRR, no significant murmur Gastrointestinal: soft, non-tender, no distention Musculoskeletal: no edema, pulses present Neurological: non-focal, normal sensation Psychiatric: normal affect, A&O x 3 Dx/Plan (1) Right femoral vein DVT Code(s): I82.411 - ACUTE EMBOLISM AND THROMBOSIS OF RIGHT FEMORAL VEIN Status : Acute (2) Renal transplant recipient Code(s): Z94.0 - KIDNEY TRANSPLANT STATUS Status: Acute (3) CKD stage G3b/A2, GFR 30-44 and albumin creatinine ratio 30-299 mg/g Code(s): N18.3 - CHRONIC KIDNEY DISEASE, STAGE 3 (MODERATE) Status: Acute (4) HTN (hypertension) Code(s): I10 - ESSENTIAL (PRIMARY) HYPERTENSION Status: Acute (5) BPH (benign prostatic hyperplasia) Code(s): N40.0 - BENIGN PROSTATIC HYPERPLASIA WITHOUT LOWER URINRY TRACT SYMP Status: Acute (6) History of poliomyelitis without residual effect Code(s): Z86.12 - PERSONAL HISTORY OF POLIOMYELITIS Status: Acute (7) Hepatitis C Code(s): B19.20 - UNSPECIFIED VIRAL HEPATITIS C WITHOUT HEPATIC COMA Status: Acute - Plan Plan: 1.)DVT, provoked from immobility, right femoral vein, with possible PE. Plan: Continue Xarelto. Patient has norco 7.5/325 q4hr and 1000mg tylenol BID for pain. And Ultram 50mg q6hr prn pain. PSA normal DC cefepime 2.)Diastolic dysfunction- Echo showed diastolic dysfunction, MR, TR and a preserved ejection fraction. No signs of volume overload of acute CHF. -Will change Lasix to PO. 2.)CKD, stage 3, s/p renal transplant on immunosuppression, Cr at baseline -improved function today. -Will continue lasix PO 3.)HTN-controlled -Amlodipine restarted. -Labatolol continued. 4.)BPH -finasteride and flomax 5.)childhood polio, with residual limited mobility
--- NOTE | 2017-01-26 16:44 | PRG ---
DATE OF SERVICE: 01/26/2017 Mr. Kramer looks and feels much better this morning. The x-ray of the thoracic spine revealed on ly mild osteoarthritis. He is ready for discharge and will be discharged on Xarelto to complete at least another 3-6 months of treatment for his DVT and probable PE.
[2017-01-26] MEDS ORDERED: Lidocaine Patch Removal 1 EACH TOP SCH (21:00)
--- NOTE | 2017-01-28 15:51 | DIS-2 ---
DATE OF ADMISSION: 01/22/2017 DATE OF DISCHARGE: 01/26/2017 ADMITTING RESIDENT: Dr. Rabia Hurd. ADMITTING ATTENDING: Dr. Bethany Pearce. DISCHARGE RESIDENT: Dr. Aixa Oliva. DISCHARGE ATTENDING: Dr. Lalo Yates. CONSULTATIONS: Nephrology, Dr. Lazar. PROCEDURES: Abdominal and pelvic CT showed diverticulosis, a questionable hypodense appearance of the renal transplant, small atrophic bad [place] band kidneys. A vascular ultrasound showed a deep venous thrombosis seen with any superficial femoral vein extending down to the popliteal vein of the right extremity. Chest x-ray showed poor visualization of the bilateral lower lobes due to shallow inspiration and due to the fact that this is a single view study, airspace density of the left lower lobe segmental atelectasis and/or scar at the right base. DISCHARGE MEDICATIONS: 1. Tramadol 50 mg oral every 6 hours as needed. 2. Vitamin D3 one tablet oral daily. 3. Amlodipine 5 mg oral twice daily. 4. Cyclosporine 25 mg oral 3 times a day. 5. Lasix 20 mg oral twice daily. 6. Finasteride 5 mg oral daily. 7. Prednisone 5 mg oral daily. 8. Tamsulosin 0.4 mg oral daily. 9. Mycophenolate 360 mg oral twice daily. 10. Labetalol 300 mg oral twice daily. 11. Sildenafil 100 mg oral as directed. 12. Xarelto 15 mg oral twice daily. Primary Diagnosis: 1.) DVT in right femoral vein extending to popliteal vein. 2. ) Suspected Pulmonary Embolus Secondary Diagnosis: 1.)CKD, stage 3 2.)HTN 3.) Neutropenic equivalent fever. HISTORY OF PRESENT ILLNESS AND HOSPITAL COURSE: This is a 66-year-old black male with a past medical history significant for renal transplant secondary to renal failure from hypertension, treated hepatitis C and childhood polio with limited mobility who presents to the Emergency Department with a 1 day history of nausea and vomiting as well as right lower extremity pain. Patient stated that he knows that he was having pain in his right groin as well as down to his right lower leg, which he also noticed was swollen and warm. Patient also noticed that it was erythematous. He also reported a temperature of 101. The patient is currently being treated on immunosuppressive therapy including Myfortic, prednisone and cyclosporine for his renal transplant. Patient was started on vancomycin and Zosyn in the ER for his immunosuppressed fever. He was found to have a right lower extremity DVT on duplex ultrasound. He also received morphine, Zofran and normal saline in the ER. The patient was admitted for acute DVT of the right femoral vein and suspecting a pulmonary embolism. Due to the patient's poor renal function, we were unable to perform a CTPA to diagnose pulmonary embolism; however, the patient was started on Xarelto for his DVT. The patient has an allergy to HEPARIN and Lovenox is contraindicated due to his renal transplant. This is a provoked DVT because the patient is largely immobile due to his childhood polio illness. For pain control, we are unable to use NSAIDs due to patient's poor renal function, but started the patient on [place] and Tylenol. Throughout the hospital course, the patient's pain was not controlled, so [place] was increased to 7.5/325 as well as provided with tramadol 50 mg q.4 hours p.r.n. Patient had one episode of respiratory distress overnight and was provided with 3 liters of oxygen and a DuoNeb treatment and was found to be satting in the upper 90s and without respiratory distress after that treatment. The patient throughout his hospital stay was slowly weaned off his oxygen and upon discharge was not requiring oxygen. fact that the patient did have pulmonary embolism and due to his poor renal function, a CTPA was not ordered; however, the patient was discharged on proper treatment for his DVT as well as suspected PE. The patient was discharged on Xarelto b.i.d. 1. Chronic kidney disease 3 with history of renal transplantation. Dr. Lazar was consulted for guidance concerning whether or not to obtain a VQ scan versus pre-hydrating the patient prior to obtaining a CTA of the chest. As mentioned above, per Dr. Lazar's recommendations, it was not necessary to evaluate for PE aside from the one episode of respiratory distress. The patient was satting in the upper 90s without respiratory distress and was slowly weaned off his oxygen and showed improvements while on Xarelto. 2. Hypertension. The patient normally takes labetalol and amlodipine at home. There is some concern for lower extremity swelling as a side effect from the amlodipine; however, this seems to be the best choice given the patient's chronic kidney disease stage 3. The patient was discharged on amlodipine. 3. Benign prostatic hypertrophy. The patient was restarted on his home medications and discharged on the same, which were Flomax and finasteride. 4. Neutropenic equivalent fever. The patient did not have neutropenia. His absolute neutrophil count was 7190; however, since he is immunosuppressed for his renal transplant, we treated him with cefepime. His blood cultures were negative at 48 hours. The patient did not have fever since admission and the cefepime was discontinued at 48 hours. The patient's chest x-ray and UA did not show signs of infection regard to the patient's childhood polio with limited mobility. PT was consulted to work with the patient. 5. Hepatitis C. Patient has been treated and cured. 6. Elevated lipase. The patient was found to have an initially elevated lipase , which down trended and he was hydrated and lipase was rechecked and it was normal. 7. Back spasming. Patient was provided with [place], Tylenol and tramadol for adequate pain control. DISPOSITION: Stable. DISCHARGE INSTRUCTIONS: The patient was discharged home with recommended renally protected diet. Activity as tolerated and it was recommended that he follow up with his primary care physician to obtain additional prescriptions for his Xarelto, which it was recommended that he take for a minimum of six months. MTDD
== END 2017-01-26 13:53 | disposition home or self-care (01) | DRG 299 ==
LOC: ERS 11:08 → T4-B 12:40
PROVIDERS: ADMIT Family Medicine; ATTEND Family Medicine
DX: I82.411 Acute embolism and thrombosis of right femoral vein (principal); I26.99 Other pulmonary embolism without acute cor pulmonale; I95.9 Hypotension, unspecified; N18.3 Chronic kidney disease, stage 3 (moderate); D70.9 Neutropenia, unspecified; Z94.0 Kidney transplant status; I51.89 Other ill-defined heart diseases; I12.9 Hypertensive chronic kidney disease with stage 1 through stage 4 chronic kidney disease, or unspecified chronic kidney disease; N40.0 Benign prostatic hyperplasia without lower urinary tract symptoms; M19.90 Unspecified osteoarthritis, unspecified site; M62.830 Muscle spasm of back; R50.81 Fever presenting with conditions classified elsewhere; Z96.653 Presence of artificial knee joint, bilateral; Z88.2 Allergy status to sulfonamides; Z88.8 Allergy status to other drugs, medicaments and biological substances; Z86.12 Personal history of poliomyelitis
CPT/HCPCS: 36415; 71010; 72072; 74176; 80048; 80053; 80158; 81003; 81015; 83605; 83690; 85025; 85610; 85730; 87040; 93306; 94640; 96361; 96365; 96375; G0103; G8978-GP-CM; G8979-GP-CL; J0692; J1940; J2270; J2405; J2543; J3370; J7050; J7515; J7620

== ENCOUNTER 2017-10-17 13:30 | Outpatient (CLI) | payer MEDICARE, MEDICAID | END 2017-10-17 13:31 | disposition home or self-care (01) | LOC: CP 13:30 | PROVIDERS: ATTEND Family Medicine | DX: I73.9 Peripheral vascular disease, unspecified (principal); I70.203 Unspecified atherosclerosis of native arteries of extremities, bilateral legs | CPT/HCPCS: 93923 ==

== ENCOUNTER 2018-04-03 14:44 | Emergency (ER) | payer MEDICARE, MEDICAID ==
[2018-04-03] MEDS ORDERED: Acetaminophen 500 MG TAB ONE (15:55)
--- NOTE | 2018-04-03 16:14 | CT ---
CT BRAIN WITHOUT CONTRAST: Date: 04/03/18 HISTORY: Fall, hit head, possible loss of consciousness. Patient on blood thinners, frontal head pain. FINDINGS: No evidence of acute infarct, hemorrhage, midline shift, or abnormal extra-axial fluid collections ar e seen. The ventricular size is appropriate and the basilar cisterns are patent. The bony calvarium i s intact. The visualized paranasal sinuses and mastoid air cells are well aerated. There is a scalp c ontusion in the right frontal region. IMPRESSION: No CT evidence of acute intracranial process. POS: OFF
--- NOTE | 2018-04-03 16:27 | CT ---
CT CERVICAL SPINE WITHOUT CONTRAST: HISTORY: Status post fall. Posttraumatic pain. COMPARISON: None. TECHNIQUE: CT cervical spine was performed without contrast. Reformatted images were submitted. FINDINGS: No craniocervical dissociation. Appropriate alignment of the lateral masses of C1 and C2, as well as the facets. Intact odontoid process. Soft tissue neck structures are unremarkable. The upper mediastinum and lung apices are unremarkable. There are varying degrees of central canal stenosis and neural foraminal narrowing on the basis of de generative change. Cervical spine vertebral body height is maintained. There is no fracture. IMPRESSION: No cervical spine fracture. POS: [facility]
[2018-04-03 16:42] LABS: #Lymphocytes 1.3 thou/uL (1.20-3.40); #Monocytes 0.6 thou/uL (0.11-0.59); #Neutrophils 3.7 thou/uL (1.40-6.50); %Basophils 0.7 % (0.0-1.0); %Eosinophils 0.4 % (0.0-10.0); %Lymphocytes 22.8 % (21.0-51.0); %Monocytes 10.1 % (0.0-10.0); %Neutrophils 65.9 % (42.0-75.0); Hemoglobin 12.8 g/dL (14.0-18.0); Mean Corpuscular HGB CONC 31.9 g/dL (32.0-36.0); Mean Corpuscular Volume 90.9 fL (78.0-98.0); Mean Platelet Volume 8.3 fL (7.4-10.4); Platelet Count 136 thou/uL (130-400); RBC Distribution Width 13.5 % (11.5-14.5); White Blood Cell (WBC) Count 5.7 thou/uL (4.8-10.8)
[2018-04-03 16:58] LABS: ALT (SGPT) 11 U/L (8-55); AST (SGOT) 21 U/L (5-34); Albumin 4.2 g/dL (3.4-4.8); Alkaline Phosphatase 78 U/L (40-150); Anion Gap 15 mmol/L (10-20); BUN (Urea Nitrogen) 24 mg/dL (8.4-25.7); Bilirubin, Total 0.5 mg/dL (0.2-1.2); Calc. Creatinine Clearance 0 mL/min (70-130); Calcium 8.9 mg/dL (7.8-10.44); Carbon Dioxide 25 mmol/L (23-31); Chloride 105 mmol/L (98-107); Estimated GFR-MDRD 68; Globulin 3.3 g/dL (2.4-3.5); Glucose 112 mg/dL (80-115); Potassium 4.2 mmol/L (3.5-5.1); Protein, Total 7.5 g/dL (5.8-8.1); Sodium 141 mmol/L (136-145)
== END 2018-04-03 17:41 | disposition home or self-care (01) ==
LOC: ERS 14:44
DX: S00.03XA Contusion of scalp, initial encounter (principal); I48.91 Unspecified atrial fibrillation; I10 Essential (primary) hypertension; E78.00 Pure hypercholesterolemia, unspecified; Z79.01 Long term (current) use of anticoagulants; Z79.899 Other long term (current) drug therapy; W18.09XA Striking against other object with subsequent fall, initial encounter
CPT/HCPCS: 36415; 70450; 72125; 80053; 85025

== ENCOUNTER 2018-10-05 12:22 | Outpatient (CLI) | payer MEDICARE, MEDICAID ==
--- NOTE | 2018-10-05 12:42 | RAD ---
XR Chest Pa Lat @ POB History: Dyspnea Comparison: Radiograph 2017 Findings: Chronic scarring both lung bases. Chronic blunting both costophrenic sulci. No pneumothorax . Vascular calcifications are similar. No acute osseous abnormality. Impression: Chronic findings are similar.
== END 2018-10-05 12:23 | disposition home or self-care (01) ==
LOC: RAD 12:22
PROVIDERS: ATTEND Internal Medicine Critical Care Medicine
DX: R06.00 Dyspnea, unspecified (principal)
CPT/HCPCS: 71046

== ENCOUNTER 2018-10-06 18:54 | Observation (INO) | payer MEDICARE, MEDICAID ==
[2018-10-06 19:59] LABS: ALT (SGPT) 12 U/L (8-55); AST (SGOT) 19 U/L (5-34); Albumin 4.4 g/dL (3.4-4.8); Alkaline Phosphatase 82 U/L (40-150); BUN (Urea Nitrogen) 22 mg/dL (8.4-25.7); Bilirubin, Total 0.5 mg/dL (0.2-1.2); CK (CPK) 744 U/L (30-200); Calc. Creatinine Clearance 0 mL/min (70-130); Calcium 8.6 mg/dL (7.8-10.44); Carbon Dioxide 23 mmol/L (23-31); Chloride 106 mmol/L (98-107); Estimated GFR-MDRD 64; Globulin 2.8 g/dL (2.4-3.5); Glucose 116 mg/dL (80-115); Potassium 4.3 mmol/L (3.5-5.1); Protein, Total 7.2 g/dL (5.8-8.1); Sodium 142 mmol/L (136-145)
--- NOTE | 2018-10-06 20:02 | RAD ---
SINGLE VIEW OF THE CHEST: 10/06/18 COMPARISON: 01/22/17 HISTORY: Shortness of breath. FINDINGS: Single view of the chest shows a normal sized cardiomediastinal silhouette. Atherosclerotic calcifica tions are seen in the aorta. There is slight blunting of the right costophrenic angle which may repre sent a small pleural effusion. No consolidation is seen. IMPRESSION: Possible small right pleural effusion. POS: [facility]
[2018-10-06 20:14] LABS: CKMB 6.5 ng/mL (0-6.6)
[2018-10-06 20:15] LABS: Anion Gap 19 mmol/L (10-20)
[2018-10-06] MEDS ORDERED: Aspirin Chewable 81 MG TAB ONE (20:19)
[2018-10-06] MEDS ORDERED: Rivaroxaban 15 MG TAB PO SCH (21:00)
[2018-10-06 21:07] LABS: #Lymphocytes 1.6 thou/uL (1.20-3.40); #Monocytes 0.4 thou/uL (0.11-0.59); #Neutrophils 2.7 thou/uL (1.40-6.50); %Basophils 0.3 % (0.0-1.0); %Eosinophils 0.4 % (0.0-10.0); %Monocytes 9.2 % (0.0-10.0); %Neutrophils 57.1 % (42.0-75.0); Hemoglobin 12.4 g/dL (14.0-18.0); Mean Corpuscular HGB CONC 31.5 g/dL (32.0-36.0); Mean Corpuscular Hemoglobin 28.3 pg (27.0-31.0); Mean Corpuscular Volume 89.8 fL (78.0-98.0); Mean Platelet Volume 8.3 fL (7.4-10.4); Platelet Count 133 thou/uL (130-400); RBC Distribution Width 13.7 % (11.5-14.5); White Blood Cell (WBC) Count 4.8 thou/uL (4.8-10.8)
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
[2018-10-06] MEDS ORDERED: Acetaminophen 325 MG TAB PO PRN (22:36)
[2018-10-06 23:06] LABS: Troponin I 0.044 ng/mL (< 0.028)
[2018-10-06] MEDS ORDERED: Docusate 100 MG CAP PO PRN (23:21)
[2018-10-06 23:26] LABS: Hemoglobin A1c 5.9 % (4.0-6.0)
[2018-10-06] MEDS ORDERED: Amlodipine 5 MG TAB PO SCH (23:30)
[2018-10-06] MEDS ORDERED: Atorvastatin Calcium 10 MG TAB PO SCH (23:30)
[2018-10-06] MEDS ORDERED: Labetalol 100 MG TAB PO SCH (23:30)
[2018-10-06] MEDS ORDERED: cycloSPORINE, Modified 25 MG CAP PO SCH (23:30)
[2018-10-06] MEDS ORDERED: Mycophenolate ER 180 MG TAB PO SCH (23:45)
[2018-10-06] MEDS ORDERED: Polyethylene Glycol 3350 17 GM Packet PO SCH (23:45)
[2018-10-06 23:53] VITALS: BMI 29.2
[2018-10-07 02:05] LABS: Troponin I 0.045 ng/mL (< 0.028)
[2018-10-07] MEDS: Lactated Ringer's 1,000 ML IV SCH ×3 (04:37→16:40)
[2018-10-07 05:30] LABS: #Basophils 0.1 thou/uL (0.0-0.2); #Monocytes 0.4 thou/uL (0.11-0.59); #Neutrophils 3.5 thou/uL (1.40-6.50); %Basophils 1.2 % (0.0-1.0); %Eosinophils 0.2 % (0.0-10.0); %Lymphocytes 20.7 % (21.0-51.0); %Monocytes 7.4 % (0.0-10.0); %Neutrophils 70.4 % (42.0-75.0); Hemoglobin 11.9 g/dL (14.0-18.0); Mean Corpuscular HGB CONC 31.5 g/dL (32.0-36.0); Mean Corpuscular Hemoglobin 28.4 pg (27.0-31.0); Mean Corpuscular Volume 90.3 fL (78.0-98.0); Mean Platelet Volume 8.7 fL (7.4-10.4); Platelet Count 139 thou/uL (130-400); RBC Distribution Width 13.9 % (11.5-14.5)
[2018-10-07 05:51] LABS: Anion Gap 13 mmol/L (10-20); BUN (Urea Nitrogen) 20 mg/dL (8.4-25.7); CK (CPK) 636 U/L (30-200); Calc. Creatinine Clearance 87 mL/min (70-130); Carbon Dioxide 26 mmol/L (23-31); Cardiac Risk 2.6 (Less than 4.5); Chloride 109 mmol/L (98-107); Cholesterol 161 mg/dl (< 200 Desired); Estimated GFR-MDRD 80; Glucose 110 mg/dL (80-115); HDL Cholesterol 62 mg/dL (>60 Neg Risk); LDL Cholesterol, Calculated 82 mg/dL; Potassium 4.4 mmol/L (3.5-5.1); Sodium 144 mmol/L (136-145); Triglycerides 84 mg/dL (Less than 150)
[2018-10-07] MEDS ORDERED: Rivaroxaban 10 MG TAB PO SCH (06:00)
--- NOTE | 2018-10-07 06:46 | PDOC.FM ---
- Subjective Subjective: NAEO. Patient resting comfortably in bed this morning. States he had some chest pressure this AM. Denies any pain or palpitations. - Objective MAR Reviewed: Yes Vital Signs & Weight: Vital Signs (12 hours) Temp Pulse Resp BP BP Pulse Ox 10/07/18 04:37 76 18 142/83 H 98 10/07/18 00:19 136/62 10/07/18 00:17 136/62 10/06/18 23:47 97.7 F 71 16 136/62 92 L 10/06/18 21:43 98.4 F 71 18 162/76 H 95 Weight Weight 96.298 kg I&O: 10/05/18 10/06/18 10/07/18 06:59 06:59 06:59 Output Total 450 Balance -450 Result Diagrams: 10/07/18 05:16 10/07/18 05:16 Phys Exam - Physical Examination Constitutional: NAD HEENT: PERRLA, moist MMs Neck: supple, full ROM Respiratory: no wheezing, clear to auscultation bilateral Cardiovascular: RRR Gastrointestinal: soft, non-tender, no distention Musculoskeletal: pulses present 2+ edema in LE b/l Neurological: non-focal, moves all 4 limbs Psychiatric: normal affect, A&O x 3 Skin: no rash, normal turgor, cap refill <2 seconds Dx/Plan (1) Chest pain Code(s): R07.9 - CHEST PAIN, UNSPECIFIED Status: Acute (2) History of DVT (deep vein thrombosis) Code(s): Z86.718 - PERSONAL HISTORY OF OTHER VENOUS THROMBOSIS AND EMBOLISM Status: Acute (3) History of poliomyelitis Code(s): Z86.12 - PERSONAL HISTORY OF POLIOMYELITIS Status: Acute (4) SOB (shortness of breath) Code(s): R06.02 - SHORTNESS OF BREATH Status: Acute (5) BPH (benign prostatic hyperplasia) Code(s): N40.0 - BENIGN PROSTATIC HYPERPLASIA WITHOUT LOWER URINRY TRACT SYMP Status: Acute (6) CKD stage G3b/A2, GFR 30-44 and albumin creatinine ratio 30-299 mg/g Code(s): N18.3 - CHRONIC KIDNEY DISEASE, STAGE 3 (MODERATE) Status: Acute (7) HTN (hypertension) Code(s): I10 - ESSENTIAL (PRIMARY) HYPERTENSION Status: Acute (8) Hepatitis C Code(s): B19.20 - UNSPECIFIED VIRAL HEPATITIS C WITHOUT HEPATIC COMA Status: Acute (9) Renal transplant recipient Code(s): Z94.0 - KIDNEY TRANSPLANT STATUS Status: Acute (10) Right femoral vein DVT Code(s): I82.411 - ACUTE EMBOLISM AND THROMBOSIS OF RIGHT FEMORAL VEIN Status : Acute - Plan Plan: Atypical chest pain, ACS rule out Heart 4, no prior baseline or known cardiac history - Trop 0.05 -> 0.04; EKG no acute changes, NSR - A1c 5.9, FLP nml; ASCVD risk 17.3% - will change from low to high intensity statin. - ASA, continue - Stress test in AM Dysnpea Non hypoxic on RA, BNP 19, not likely CHF. - Most recent echo in 2017 with EF 50-55%, lower extremity edema likely related to hx of renal failure with current renal transplant - Will not obtain another echo as stress test will show EF - Per patient Dr. Martinez says this could be related to post-polio syndrome, continue outpatient monitoring. Patient has f/u appointment. Constipation - start stool softener Hematochezia Likely 2/2 external hemorrhoids - FOBT positive - Anemia stable CKD 2 2/2 renal failure s/p transplant - at baseline hx of renal failure s/p transplant - continue immunosuppressive meds cHTN - home meds hx of poliomyelitis hx of DVT - home xarelto but will change to maintenance dosing 20mg qd BPH - home meds dvt ppx: xarelto PCP: Brian Dispo: <2 midnights Addendum - Attending - Attending Attestation Date/Time: 10/07/18 2832 I personally evaluated the patient and discussed the management with Dr. Yeung and team. I agree with the History, Examination, Assessment and Plan documented above with any addition or exceptions noted below. Asymptomatic this AM. No f/c/n/v. Otherwise as above. I would say just trace BLE edema. Chest pain -negative stress, risk factor management, d/c with return precautions Hematochezia 2/2 presumed steroids -recommend he follow for any appropriate endoscopic workup -feel xarelta outweighs risks. Discussed bleeding warnings.
[2018-10-07] MEDS ORDERED: prednisoLONE 15 MG/5 ML UDCUP PO SCH (08:00)
[2018-10-07] MEDS ORDERED: Labetalol 100 MG TAB PO SCH (09:00)
[2018-10-07] MEDS ORDERED: Tamsulosin HCl 0.4 MG CAP PO SCH (09:00)
[2018-10-07] MEDS ORDERED: Mycophenolate ER 180 MG TAB PO SCH (09:00)
[2018-10-07] MEDS ORDERED: Finasteride 5 MG TAB PO SCH (09:00)
[2018-10-07] MEDS ORDERED: Polyethylene Glycol 3350 17 GM Packet PO SCH ×2 (09:00)
[2018-10-07] MEDS ORDERED: Amlodipine 5 MG TAB PO SCH (09:00)
[2018-10-07] MEDS ORDERED: Furosemide 20 MG TAB PO SCH (09:00)
--- NOTE | 2018-10-07 12:27 | NM ---
NM Cardiac Stress W EF WF HISTORY: Chest pain. COMPARISON: None. FINDINGS: Examination was performed using 30 mCi of 90 9M technetium sestamibi on the stress and 10.4 mCi on the resting images. This shows a normal distribution of radiopharmaceutical. There is no signs of ischemia or scar. Wall motion: There is symmetric contractility of the ventricle. Left ventricular ejection fraction: The calculated left ventricular ejection fraction is 61%. IMPRESSION: Unremarkable myocardial perfusion scan.
[2018-10-07] MEDS: Calcium Carbonate + Vit D 1 TAB PO SCH ×2 (13:12→18:17)
[2018-10-07] MEDS: cycloSPORINE, Modified 25 MG CAP PO SCH ×2 (13:16→16:07)
[2018-10-07 16:30] VITALS: BP 152/72; TEMP 98.6
[2018-10-07] MEDS ORDERED: Atorvastatin Calcium 10 MG TAB PO SCH (21:00)
[2018-10-07] MEDS ORDERED: Atorvastatin Calcium 40 MG TAB PO SCH (21:00)
--- NOTE | 2018-10-08 05:10 | DIS ---
DATE OF ADMISSION: 10/06/2018 DATE OF DISCHARGE: 10/07/2018 RESIDENT: Lulu Alegria MD ADMITTING ATTENDING: DR NICOLE BEARD DISCHARGE ATTENDING: DR ESDRAS LUCIO CONSULTS: None. PROCEDURES: Nuclear medicine stress test showing an unremarkable myocardial perfusion scan. PRIMARY DIAGNOSES: Atypical chest pain, dyspnea, constipation, hematochezia. SECONDARY DIAGNOSES: Chronic kidney disease, stage 2, chronic hypertension, history of renal failure status post renal transplant, history of polio, history of DVT, BPH. DISCHARGE MEDICATIONS: 1. Lipitor 40 mg oral at bedtime. 2. Xarelto 20 mg oral. 3. Calcium carbonate/vitamin-D one tablet oral twice daily. 4. Amlodipine 5 mg oral twice daily. 5. Cyclosporine 75 mg oral 3 times daily. 6. Lasix 20 mg oral twice daily. 7. Finasteride 5 mg oral daily. 8. Prednisone 5 mg oral every morning. 9. Flomax 0.4 mg oral daily. 10. Mycophenolate 360 mg oral twice daily. 11. Labetalol 300 mg oral twice daily. DISCONTINUED MEDICATIONS: 1. Xarelto 15 mg oral twice daily. 2. Lipitor 10 mg oral at bedtime. HISTORY OF PRESENT ILLNESS/HOSPITAL COURSE: This is a 67-year-old male with a past medical history of hypertension, polio, and DVT, who presented to the emergency department with complaints of shortness of breath, chest pressure, muscle spasms, and multiple symptoms. The patient reported that his shortness of breath has been going on for around 8 months. The patient endorsed orthopnea and chronic lower leg swelling. The patient reports no prior cardiac history. The patient also endorsed that the chest pressure has been going on for several months as well. He states that the chest pressure is worse with exertion and better with rest. The patient denied this getting worse over the past few months. The patient states that he did have a stress test a few years ago that he believes was normal. The patient had an echo in 2017 that showed an ejection fraction of 50% to 55%. The patient saw his PCP, Dr. Jacob Torres on 10/02/2018, in the clinic. The patient had complaints of shortness of breath during this visit and was advised to go to the hospital. The patient did not want to go that day. The patient also saw dandy operator, Dr. Martinez a few days ago, who believes that the patient's shortness of breath may be due to a post-polio syndrome. The patient was also complaining of bright red blood on his tissue paper with bowel movements. The patient states he has been constipated recently and also has a history of hemorrhoids. The patient states that he did have a colonoscopy an unknown amount of years ago that had benign polyps. The patient denies any recent weight loss or family history of colon cancer. In the ER, the patient had an indeterminate troponin of 0.05 and an EKG with no acute changes. The patient was given aspirin. The patient's troponins downtrended. The patient was admitted for an ACS rule out. The patient remained vitally stable throughout his stay. The patient had a chest x-ray that showed blunting of the right costophrenic angle that may be due to a small right pleural effusion. In regard to the patient's shortness of breath and chest pressure, he had a stress test that was normal on the day of discharge. The patient had an A1c of 5.9 and a fasting lipid panel that was normal. The patient's ASCVD risk score is 17.3% and the patient was changed from a low to a high-intensity statin. In regard to the patient's shortness of breath, the patient is likely not having heart failure due to the patient's normal BNP and normal echo and stress. The patient is being seen by Dr. Martinez in outpatient setting, who states that may be post-polio syndrome and this workup will be continued outpatient with Dr. Martinez. As for the patient's hematochezia, this is likely secondary to external hemorrhoids which were visualized on exam. The patient's anemia is stable. The patient discharged in stable condition and was not having any ongoing symptoms. We recommend outpatient evaluation for hematochezia. DISPOSITION: Stable. DISCHARGE INSTRUCTIONS: 1. Location: Home. 2. Diet: Heart healthy and renal. 3. Activity: Ad lucina. 4. Follow up: Follow up with PCP Dr. Jacob Torres within 7 days and follow up with Dr. Martinez as scheduled. Job ID: [id number] MTDD
--- NOTE | 2018-10-09 14:05 | EKG ---
Test Reason : Blood Pressure : / mmHG Vent. Rate : 065 BPM Atrial Rate : 065 BPM P-R Int : 178 ms QRS Dur : 102 ms QT Int : 412 ms P-R-T Axes : 030 -21 071 degrees QTc Int : 428 ms Demand pacemaker; interpretation is based on intrinsic rhythm Sinus rhythm with Fusion complexes Otherwise normal ECG Confirmed by ULYSSES SULTANA DO ([id number]), greeting card editor TAMMY REYNOLDS ([id number]) on 10/09/2018 2:04:51 PM Referred By: Confirmed By:ULYSSES SULTANA DO
== END 2018-10-07 18:17 | disposition home or self-care (01) ==
LOC: ERS 18:54 → 2SW 21:38
PROVIDERS: ADMIT Student in an Organized Health Care Education/Training Program; ATTEND Student in an Organized Health Care Education/Training Program
DX: R07.89 Other chest pain (principal); R06.00 Dyspnea, unspecified; K59.00 Constipation, unspecified; K92.1 Melena; I12.9 Hypertensive chronic kidney disease with stage 1 through stage 4 chronic kidney disease, or unspecified chronic kidney disease; N18.3 Chronic kidney disease, stage 3 (moderate); N40.0 Benign prostatic hyperplasia without lower urinary tract symptoms; M19.90 Unspecified osteoarthritis, unspecified site; E89.0 Postprocedural hypothyroidism; D64.9 Anemia, unspecified; Z86.12 Personal history of poliomyelitis; Z86.718 Personal history of other venous thrombosis and embolism; Z79.52 Long term (current) use of systemic steroids; Z79.899 Other long term (current) drug therapy; Z88.2 Allergy status to sulfonamides; Z88.8 Allergy status to other drugs, medicaments and biological substances; Z86.010 Personal history of colon polyps; Z94.0 Kidney transplant status; Z96.653 Presence of artificial knee joint, bilateral; Z98.890 Other specified postprocedural states
CPT/HCPCS: 71045; 78452; 80048; 80053; 80061; 82274; 82550 ×2; 82553; 83036; 83735; 83880; 84484 ×3; 85025 ×2; 93005; 93017; 94760; 99285; A9500; G0378 ×2; 36415; J7510; J7515; J7518

== ENCOUNTER 2019-06-10 14:11 | Emergency (ER) | payer MEDICARE, MEDICAID ==
[~2019-06-10 14:11] MED LIST: Iopamidol-370 76% 500 ML 1 ML ONE
[2019-06-10 15:25] LABS: #Lymphocytes 1.2 thou/uL (1.20-3.40); #Monocytes 0.6 thou/uL (0.11-0.59); %Basophils 0.6 % (0.0-1.0); %Eosinophils 0.5 % (0.0-10.0); %Lymphocytes 20.3 % (21.0-51.0); %Monocytes 9.7 % (0.0-10.0); %Neutrophils 68.9 % (42.0-75.0); Hemoglobin 11.9 g/dL (14.0-18.0); Mean Corpuscular HGB CONC 31.4 g/dL (32.0-36.0); Mean Corpuscular Hemoglobin 28.8 pg (27.0-31.0); Mean Corpuscular Volume 91.6 fL (78.0-98.0); Mean Platelet Volume 8.3 fL (7.4-10.4); Platelet Count 155 thou/uL (130-400); RBC Distribution Width 14.1 % (11.5-14.5); Red Blood Cell (RBC) Count 4.14 mill/uL (4.70-6.10); White Blood Cell (WBC) Count 5.8 thou/uL (4.8-10.8)
[2019-06-10 15:32] LABS: PTT 50.5 SEC (22.9-36.1); Prothrombin Time 31.1 SEC (12.0-14.7)
[2019-06-10 15:33] LABS: D-Dimer Test 1.24 *mcg/mL (0.27-0.43)
--- NOTE | 2019-06-10 15:34 | RAD ---
SINGLE VIEW OF THE CHEST: COMPARISON: 10/06/2018. HISTORY: Weakness and cough. FINDINGS: A single view of the chest shows an enlarged but stable cardiomediastinal silhouette with atheroscler otic calcifications in the aorta. There may be bilateral pleural effusions with adjacent atelectasis . No significant change has occurred compared to the prior exam. IMPRESSION: Bilateral pleural effusions with adjacent atelectasis. POS: TPC
[2019-06-10 15:47] LABS: ALT (SGPT) 13 U/L (8-55); AST (SGOT) 19 U/L (5-34); Albumin 4.2 g/dL (3.4-4.8); Alkaline Phosphatase 93 U/L (40-110); Anion Gap 14 mmol/L (10-20); BUN (Urea Nitrogen) 15 mg/dL (8.4-25.7); Bilirubin, Total 0.5 mg/dL (0.2-1.2); CK (CPK) 586 U/L (30-200); Calc. Creatinine Clearance 0 mL/min (70-130); Carbon Dioxide 28 mmol/L (23-31); Chloride 102 mmol/L (98-107); Estimated GFR-MDRD 71; Globulin 3.1 g/dL (2.4-3.5); Glucose 109 mg/dL (80-115); Potassium 4.2 mmol/L (3.5-5.1); Protein, Total 7.3 g/dL (5.8-8.1); Sodium 140 mmol/L (136-145)
[2019-06-10 16:11] LABS: CKMB 8.2 ng/mL (0-6.6)
--- NOTE | 2019-06-10 16:47 | CT ---
CT ANGIOGRAM THORAX WITH IV CONTRAST AND 3-D RECONSTRUCTIONS CLINICAL INDICATION: Weakness and cough for 3 days. Coughing up blood and feeling short of breath. COMPARISON: None FINDINGS: Pulmonary arteries: No filling defects are seen in the pulmonary arteries to suggest a pulmonary embo kofi. Aorta: Vascular calcifications are seen in the thoracic aorta. The thoracic aorta is normal in calibe r without evidence of an aortic dissection. Prominent vascular calcifications are also seen in the coronary arteries. Lungs: Bibasilar areas of consolidation are seen probably attributable to atelectasis. Pneumonia ольга ot be entirely excluded. Linear atelectasis versus scarring is seen in the right upper lobe and right middle lobe. No pulmonary nodule, mass, or pleural effusion is identified. Mediastinum: Heart is mildly enlarged. No lymphadenopathy is seen. Thyroid gland: Small in size but grossly within normal limits. Osseous structures: Degenerative changes are seen in the spine. Remote right anterior fifth rib fract ures present. Chest wall: There is absence of the right pectoralis musculature as well as absence of the right lati ssimus dorsi musculature. Upper abdomen: Within normal limits for phase of imaging. IMPRESSION: 1. No CT evidence of a pulmonary embolus. 2. Mild degrees of consolidation posterior aspect of each lung base probably attributable to atelecta sis. Pneumonia at either lung base cannot be entirely excluded. Clinical correlation is suggested. 3. Absence of the right pectoralis musculature as well as absence of the latissimus dorsi musculature . 4. Mild cardiomegaly with vascular calcifications in the thoracic aorta and coronary arteries.
[2019-06-10] MEDS ORDERED: cefTRIAXone\\ROCEPHIN 2 GM VIAL ONE (17:51)
== END 2019-06-10 19:01 | disposition home or self-care (01) ==
LOC: ERS 14:11
DX: J18.9 Pneumonia, unspecified organism (principal); I10 Essential (primary) hypertension; E78.00 Pure hypercholesterolemia, unspecified; I48.91 Unspecified atrial fibrillation; Z79.01 Long term (current) use of anticoagulants; Z79.899 Other long term (current) drug therapy
CPT/HCPCS: 36415; 71045; 71275; 80053; 82550; 82553; 83880; 84484; 85025; 85379; 85610; 85730; 87804; 93005; 96365; J0696; Q9967

== ENCOUNTER 2020-06-22 15:04 | Outpatient (CLI) | payer MEDICARE, MEDICAID ==
[2020-06-22 16:43] LABS: #Monocytes 0.8 10x3/uL (0.0-1.1); #Neutrophils 2.9 10x3/uL (1.5-8.4); %Basophils 0.4 % (0.0-2.0); %Eosinophils 0.6 % (0.0-6.0); %Lymphocytes 26.7 % (18.0-47.0); %Neutrophils 56.1 % (40.0-75.0); Hemoglobin 11.1 g/dL (13.5-17.5); Mean Corpuscular HGB CONC 29.8 g/dL (32.0-36.0); Mean Corpuscular Hemoglobin 26.8 pg (27.0-33.0); Mean Corpuscular Volume 90.1 fl (81.2-95.1); Mean Platelet Volume 10.3 fl (7.4-10.4); Platelet Count 170 10x3/uL (150-450); RBC Distribution Width 15.9 % (11.5-14.5); Red Blood Cell (RBC) Count 4.14 10x6/uL (4.32-5.72); White Blood Cell (WBC) Count 5.2 10x3/uL (3.5-10.5)
[2020-06-22 17:03] LABS: Anion Gap 15 mmol/L (10-20); BUN (Urea Nitrogen) 23 mg/dL (8.4-25.7); Calc. Creatinine Clearance 0 mL/min (70-130); Calcium 8.1 mg/dL (7.8-10.44); Carbon Dioxide 31 mmol/L (23-31); Chloride 101 mmol/L (98-107); Glucose 110 mg/dL (80-115); Potassium 3.8 mmol/L (3.5-5.1); Sodium 143 mmol/L (136-145)
[2020-06-22 17:22] LABS: Platelet Morphology Comment Appears Adequate
[2020-06-22 17:24] LABS: Hypochromia SLIGHT = 6-15 cells (100X) (0-5/hpf); Macrocytosis SLIGHT = 6-15 cells (100X) (0-5/hpf); Microcytosis SLIGHT = 6-15 cells (100X) (0-5/hpf)
[2020-06-23 04:32] LABS: SARS-CoV-2 PCR by NAA Not Detected (NotDetected)
== END 2020-06-22 15:05 | disposition home or self-care (01) ==
LOC: LABBT 15:04
PROVIDERS: ATTEND Specialist
DX: Z01.818 Encounter for other preprocedural examination (principal); I77.0 Arteriovenous fistula, acquired; Z94.0 Kidney transplant status; Z20.822 Contact with and (suspected) exposure to COVID-19
CPT/HCPCS: 80048; 85025; 93005; U0003; U0005; 87635; 93010

== ENCOUNTER 2020-06-28 15:48 | Outpatient (CLI) | payer MEDICARE, OTHER | END 2020-06-28 15:49 | disposition home or self-care (01) | LOC: LABBT 15:48 | PROVIDERS: ATTEND Specialist | DX: Z01.812 Encounter for preprocedural laboratory examination (principal); I77.0 Arteriovenous fistula, acquired; Z94.0 Kidney transplant status; Z20.822 Contact with and (suspected) exposure to COVID-19 | CPT/HCPCS: 80048; 85025; U0003; U0005; 87635 ==

== ENCOUNTER 2020-06-30 10:06 | Day surgery (SDC) | payer MEDICARE, OTHER ==
[2020-06-26 10:03] VITALS: BMI 28.5
[2020-06-30] MEDS ORDERED: Lidocaine 1% w/Epinephrine 1:100K 20 ML VIAL ONE (11:16)
[2020-06-30] MEDS ORDERED: Bupivacaine PF 0.5% 30 ML VIAL ONE (11:16)
[2020-06-30] MEDS ORDERED: Heparin 5,000 UNITS/ML VIAL ONE (11:18)
[2020-06-30] MEDS ORDERED: Acetaminophen 500 MG TAB ONE (11:27)
[2020-06-30] MEDS ORDERED: PHENYLEPHRINE-NS 100 MCG/ML 10 ML SYRINGE ONE (11:55)
[2020-06-30] MEDS ORDERED: PROPOFOL 200 MG/20 ML VIAL ONE (11:55)
[2020-06-30] MEDS ORDERED: diphenhydrAMINE 50 MG/ML VIAL ONE (11:55)
[2020-06-30] MEDS ORDERED: ePHEDrine 50 MG/ML VIAL ONE (11:55)
[2020-06-30] MEDS ORDERED: Ondansetron PF 4 MG/2 ML Vial ONE (11:55)
[2020-06-30] MEDS ORDERED: Fentanyl 100 MCG/2 ML VIAL ONE (12:41)
[2020-06-30] MEDS ORDERED: HYDROcodone/Acetaminophen 5/325 mg Tablet ONE (14:07)
== END 2020-06-30 17:30 | disposition home or self-care (01) ==
LOC: SDC 10:06
PROVIDERS: ATTEND Specialist
PROC: 03LY0CZ Occlusion of Upper Artery with Extraluminal Device, Open Approach (ICD-10-PCS; principal; 2020-06-30)
DX: I77.0 Arteriovenous fistula, acquired (principal); I12.0 Hypertensive chronic kidney disease with stage 5 chronic kidney disease or end stage renal disease; N18.6 End stage renal disease; M19.90 Unspecified osteoarthritis, unspecified site; E78.00 Pure hypercholesterolemia, unspecified; G89.29 Other chronic pain; M10.9 Gout, unspecified; Z79.01 Long term (current) use of anticoagulants; Z79.899 Other long term (current) drug therapy; Z88.2 Allergy status to sulfonamides; Z88.8 Allergy status to other drugs, medicaments and biological substances; Z94.0 Kidney transplant status
CPT/HCPCS: J0690; J1200; J1644; J2405; J2704; J3010; J3490; S0020

== ENCOUNTER 2021-03-16 13:41 | Emergency (ER) | payer OTHER, MEDICAID ==
[2021-03-16] MEDS ORDERED: Morphine 4 MG/ML VIAL ONE (15:40)
[2021-03-16] MEDS ORDERED: Bacitracin 1 PK ONE (16:12)
== END 2021-03-16 16:00 | disposition home or self-care (01) ==
LOC: ERS 13:41
DX: M25.511 Pain in right shoulder (principal); G14 Postpolio syndrome; M21.372 Foot drop, left foot; I10 Essential (primary) hypertension; E78.00 Pure hypercholesterolemia, unspecified; I48.91 Unspecified atrial fibrillation; Z79.01 Long term (current) use of anticoagulants; Z79.899 Other long term (current) drug therapy; W01.0XXA Fall on same level from slipping, tripping and stumbling without subsequent striking against object, initial encounter; Z48.22 Encounter for aftercare following kidney transplant
CPT/HCPCS: 70450; 71250; 72125; 80053; 80158; 82306; 83735; 83970; 84100; 85025; 96374; J2270

== ENCOUNTER 2021-03-27 18:44 | Inpatient (IN) | payer MEDICARE, OTHER ==
[2021-03-27] MEDS ORDERED: Aspirin Chewable 81 MG TAB ONE (21:52)
[2021-03-27 22:16] LABS: #Lymphocytes 1.4 thou/uL (1.20-3.40); #Monocytes 0.9 thou/uL (0.11-0.59); #Neutrophils 4.2 thou/uL (1.40-6.50); %Basophils 0.2 % (0.0-1.0); %Eosinophils 0.2 % (0.0-10.0); %Lymphocytes 21.7 % (21.0-51.0); %Monocytes 13.7 % (0.0-10.0); %Neutrophils 64.1 % (42.0-75.0); Hemoglobin 11.7 g/dL (14.0-18.0); Mean Corpuscular Hemoglobin 27.2 pg (27.0-31.0); Mean Corpuscular Volume 90.9 fL (78.0-98.0); Mean Platelet Volume 8.3 fL (7.4-10.4); Platelet Count 153 thou/uL (130-400); RBC Distribution Width 14.9 % (11.5-14.5); Red Blood Cell (RBC) Count 4.28 mill/uL (4.70-6.10); White Blood Cell (WBC) Count 6.6 thou/uL (4.8-10.8)
[2021-03-27 22:38] LABS: ALT (SGPT) 9 U/L (8-55); AST (SGOT) 19 U/L (5-34); Albumin 4.2 g/dL (3.4-4.8); Alkaline Phosphatase 63 U/L (40-110); Anion Gap 16 mmol/L (10-20); BUN (Urea Nitrogen) 16 mg/dL (8.4-25.7); Bilirubin, Total 0.9 mg/dL (0.2-1.2); Calc. Creatinine Clearance 0 mL/min (70-130); Calcium 8.5 mg/dL (7.8-10.44); Carbon Dioxide 27 mmol/L (23-31); Chloride 103 mmol/L (98-107); Globulin 2.9 g/dL (2.4-3.5); Glucose 101 mg/dL (83-110); Lipase 38 U/L (8-78); Potassium 4.1 mmol/L (3.5-5.1); Protein, Total 7.1 g/dL (5.8-8.1); Sodium 142 mmol/L (136-145)
[2021-03-28] MEDS ORDERED: Acetaminophen 650 MG Suppository PR PRN (02:29)
[2021-03-28] MEDS ORDERED: Ondansetron ODT 4 MG TAB PO PRN (02:29)
[2021-03-28] MEDS ORDERED: Acetaminophen 325 MG TAB PO PRN (02:29)
[2021-03-28] MEDS ORDERED: Calcium Carbonate 500 MG ChewTAB PO PRN (02:29)
[2021-03-28 03:31] LABS: SARS-CoV-2 NAA Rapid Test Not Detected (NotDetected)
[2021-03-28] MEDS ORDERED: Lactated Ringer's 1,000 ML IV SCH (04:00)
[2021-03-28 05:02] LABS: Troponin I 0.044 ng/mL (< 0.028)
[2021-03-28 07:55] LABS: Troponin I 0.051 ng/mL (< 0.028)
[2021-03-28] MEDS ORDERED: ADENOSINE 60 MG/20 ML VIAL ONE (13:04)
[2021-03-28] MEDS: Tamsulosin HCl 0.4 MG CAP PO SCH (16:11)
[2021-03-28] MEDS: Calcium Carbonate 600 MG + Vit D TAB PO SCH ×2 (16:12→21:22)
[2021-03-28] MEDS: Finasteride 5 MG TAB PO SCH (16:12)
[2021-03-28] MEDS: Amlodipine 5 MG TAB PO SCH ×2 (16:12→21:24)
[2021-03-28] MEDS: Furosemide 40 MG TAB PO SCH (16:12)
[2021-03-28] MEDS ORDERED: HYDROcodone/Acetaminophen 5/325 mg Tablet PO SCH (17:00)
[2021-03-28] MEDS: Mycophenolate ER 180 MG TAB PO SCH ×2 (17:05→21:24)
[2021-03-28] MEDS: Rivaroxaban 10 MG TAB PO SCH (17:06)
[2021-03-28] MEDS: prednisoLONE 15 MG/5 ML UDCUP PO SCH (17:40)
[2021-03-28] MEDS ORDERED: FLU VACC QS2021-22(65YR UP)/PF 240 MCG/0.7 ML SYRINGE IM ONE (18:00)
[2021-03-28] MEDS: cycloSPORINE, Modified 25 MG CAP PO SCH ×2 (18:20→21:24)
[2021-03-28] MEDS: Atorvastatin Calcium 10 MG TAB PO SCH (21:23)
[2021-03-28] MEDS ORDERED: Cyclobenzaprine 10 MG TAB PO SCH (23:30)
[2021-03-29 06:24] LABS: Anion Gap 12 mmol/L (10-20); BUN (Urea Nitrogen) 12 mg/dL (8.4-25.7); Calc. Creatinine Clearance 107 mL/min (70-130); Calcium 8.6 mg/dL (7.8-10.44); Carbon Dioxide 31 mmol/L (23-31); Chloride 103 mmol/L (98-107); Glucose 114 mg/dL (83-110); Potassium 3.7 mmol/L (3.5-5.1); Sodium 142 mmol/L (136-145)
[2021-03-29 06:31] LABS: Eosinophils 2 % (0-10); Hemoglobin 10.8 g/dL (14.0-18.0); Lymphocytes 19 % (21-51); MDiff Complete? YES; Mean Corpuscular HGB CONC 31.3 g/dL (32.0-36.0); Mean Corpuscular Hemoglobin 28.8 pg (27.0-31.0); Mean Corpuscular Volume 91.9 fL (78.0-98.0); Mean Platelet Volume 8.6 fL (7.4-10.4); Monocytes 13 % (0-10); Neutrophil 60 % (42-75); Platelet Count 152 thou/uL (130-400); Platelet Morphology Comment Appears Adequate; RBC Distribution Width 14.6 % (11.5-14.5); Reactive Lymphocytes 6 % (0-10); Red Blood Cell (RBC) Count 3.76 mill/uL (4.70-6.10); White Blood Cell (WBC) Count 3.8 thou/uL (4.8-10.8)
[2021-03-29] MEDS: Mycophenolate ER 180 MG TAB PO SCH ×2 (08:42→21:07)
[2021-03-29] MEDS: Tamsulosin HCl 0.4 MG CAP PO SCH (08:42)
[2021-03-29] MEDS: Furosemide 40 MG TAB PO SCH (08:42)
[2021-03-29] MEDS: Calcium Carbonate 600 MG + Vit D TAB PO SCH ×2 (08:42→21:07)
[2021-03-29] MEDS: Labetalol 100 MG TAB PO SCH ×2 (08:42→21:07)
[2021-03-29] MEDS: Amlodipine 5 MG TAB PO SCH ×2 (08:43→21:07)
[2021-03-29] MEDS: Finasteride 5 MG TAB PO SCH (08:43)
[2021-03-29] MEDS: prednisoLONE 15 MG/5 ML UDCUP PO SCH (09:36)
[2021-03-29] MEDS: cycloSPORINE, Modified 25 MG CAP PO SCH ×2 (09:36→21:07)
[2021-03-29] MEDS: Rivaroxaban 10 MG TAB PO SCH (17:56)
[2021-03-29] MEDS: Atorvastatin Calcium 10 MG TAB PO SCH (21:07)
[2021-03-30] MEDS ORDERED: Sodium Chloride 0.65% Nasal 44 ML BOT EA NARE PRN (08:05)
[2021-03-30] MEDS ORDERED: Senokot S 8.6-50 MG TAB PO PRN (08:06)
[2021-03-30] MEDS: Amlodipine 5 MG TAB PO SCH ×2 (09:53→20:49)
[2021-03-30] MEDS: Calcium Carbonate 600 MG + Vit D TAB PO SCH ×2 (09:53→20:50)
[2021-03-30] MEDS: Labetalol 100 MG TAB PO SCH ×2 (09:54→20:49)
[2021-03-30] MEDS: Finasteride 5 MG TAB PO SCH (09:54)
[2021-03-30] MEDS: Furosemide 40 MG TAB PO SCH (09:54)
[2021-03-30] MEDS: prednisoLONE 15 MG/5 ML UDCUP PO SCH (09:55)
[2021-03-30] MEDS: Tamsulosin HCl 0.4 MG CAP PO SCH (09:55)
[2021-03-30] MEDS: cycloSPORINE, Modified 25 MG CAP PO SCH ×2 (11:03→20:51)
[2021-03-30] MEDS: Mycophenolate ER 180 MG TAB PO SCH ×2 (11:03→20:50)
[2021-03-30 14:49] VITALS: BMI 30.6
[2021-03-30] MEDS: Rivaroxaban 10 MG TAB PO SCH (15:59)
[2021-03-30] MEDS: Atorvastatin Calcium 10 MG TAB PO SCH (20:49)
[2021-03-30] MEDS: Senokot S 8.6-50 MG TAB PO SCH (20:50)
[2021-03-30] MEDS: Melatonin 3 MG TAB PO SCH (20:50)
[2021-03-30] MEDS: Acetaminophen 500 MG TAB PO PRN (23:35)
[2021-03-31] MEDS: Ondansetron PF 4 MG/2 ML Vial IVP PRN (08:42)
[2021-03-31] MEDS: Acetaminophen 500 MG TAB PO PRN ×2 (08:42→19:39)
[2021-03-31] MEDS: Mycophenolate ER 180 MG TAB PO SCH ×2 (08:43→21:29)
[2021-03-31] MEDS: Finasteride 5 MG TAB PO SCH (08:43)
[2021-03-31] MEDS: Calcium Carbonate 600 MG + Vit D TAB PO SCH ×2 (08:43→19:38)
[2021-03-31] MEDS: Amlodipine 5 MG TAB PO SCH ×2 (08:43→19:38)
[2021-03-31] MEDS: Furosemide 40 MG TAB PO SCH (08:43)
[2021-03-31] MEDS: cycloSPORINE, Modified 25 MG CAP PO SCH ×2 (08:43→19:39)
[2021-03-31] MEDS: Labetalol 100 MG TAB PO SCH ×2 (08:43→19:38)
[2021-03-31] MEDS: prednisoLONE 15 MG/5 ML UDCUP PO SCH (08:44)
[2021-03-31] MEDS: Tamsulosin HCl 0.4 MG CAP PO SCH (08:44)
[2021-03-31] MEDS: Senokot S 8.6-50 MG TAB PO SCH ×2 (08:45→19:38)
[2021-03-31 10:11] LABS: Anion Gap 13 mmol/L (10-20); BUN (Urea Nitrogen) 13 mg/dL (8.4-25.7); Calc. Creatinine Clearance 98 mL/min (70-130); Calcium 9.3 mg/dL (7.8-10.44); Carbon Dioxide 32 mmol/L (23-31); Chloride 100 mmol/L (98-107); Glucose 118 mg/dL (83-110); Potassium 3.8 mmol/L (3.5-5.1); Sodium 141 mmol/L (136-145)
[2021-03-31 10:42] LABS: Band 3 % (5-11); Eosinophils 3 % (0-10); Hemoglobin 10.6 g/dL (14.0-18.0); Lymphocytes 38 % (21-51); MDiff Complete? YES; Mean Corpuscular HGB CONC 31.1 g/dL (32.0-36.0); Mean Corpuscular Hemoglobin 28.7 pg (27.0-31.0); Mean Corpuscular Volume 92.2 fL (78.0-98.0); Mean Platelet Volume 8.2 fL (7.4-10.4); Monocytes 2 % (0-10); Neutrophil 53 % (42-75); Platelet Count 157 thou/uL (130-400); RBC Distribution Width 14.5 % (11.5-14.5); Red Blood Cell (RBC) Count 3.71 mill/uL (4.70-6.10); White Blood Cell (WBC) Count 4.9 thou/uL (4.8-10.8)
[2021-03-31] MEDS ORDERED: Polyethylene Glycol 3350 17 GM Packet PO SCH (13:00)
[2021-03-31] MEDS: Rivaroxaban 10 MG TAB PO SCH (16:02)
[2021-03-31] MEDS: Melatonin 3 MG TAB PO SCH (19:37)
[2021-03-31] MEDS: Atorvastatin Calcium 10 MG TAB PO SCH (19:38)
[2021-03-31] MEDS ORDERED: guaiFENesin/DM ER PO PRN (20:46)
[2021-03-31 23:17] LABS: SARS-CoV-2 NAA Rapid Test Not Detected (NotDetected)
[2021-04-01] MEDS ORDERED: Polyethylene Glycol 3350 17 GM Packet PO SCH (09:00)
[2021-04-01] MEDS: prednisoLONE 15 MG/5 ML UDCUP PO SCH (09:07)
[2021-04-01] MEDS: Tamsulosin HCl 0.4 MG CAP PO SCH (09:07)
[2021-04-01] MEDS: Ondansetron PF 4 MG/2 ML Vial IVP PRN (09:08)
[2021-04-01] MEDS: Furosemide 40 MG TAB PO SCH (09:08)
[2021-04-01] MEDS: Labetalol 100 MG TAB PO SCH ×2 (09:09→20:27)
[2021-04-01] MEDS: Amlodipine 5 MG TAB PO SCH ×2 (09:09→20:26)
[2021-04-01] MEDS: Finasteride 5 MG TAB PO SCH (09:09)
[2021-04-01] MEDS: Senokot S 8.6-50 MG TAB PO SCH ×2 (09:10→20:28)
[2021-04-01] MEDS: Mycophenolate ER 180 MG TAB PO SCH ×2 (09:10→20:28)
[2021-04-01] MEDS: Calcium Carbonate 600 MG + Vit D TAB PO SCH ×2 (09:10→20:26)
[2021-04-01] MEDS: cycloSPORINE, Modified 25 MG CAP PO SCH ×2 (10:42→20:27)
[2021-04-01] MEDS ORDERED: Cefepime 2 GM in Sodium Chloride 0.9% 100 ML IVPB SCH ×2 (13:30→21:00)
[2021-04-01] MEDS: Lidocaine 5% Patch TD SCH (14:10)
[2021-04-01 14:23] LABS: #Lymphocytes 1.1 thou/uL (1.20-3.40); #Monocytes 0.3 thou/uL (0.11-0.59); #Neutrophils 5.4 thou/uL (1.40-6.50); %Basophils 0.1 % (0.0-1.0); %Eosinophils 0.4 % (0.0-10.0); %Lymphocytes 15.4 % (21.0-51.0); %Monocytes 4.9 % (0.0-10.0); %Neutrophils 79.2 % (42.0-75.0); Hemoglobin 10.9 g/dL (14.0-18.0); Mean Corpuscular Hemoglobin 28.3 pg (27.0-31.0); Mean Corpuscular Volume 94.3 fL (78.0-98.0); Mean Platelet Volume 8.1 fL (7.4-10.4); Platelet Count 175 thou/uL (130-400); RBC Distribution Width 14.3 % (11.5-14.5); Red Blood Cell (RBC) Count 3.83 mill/uL (4.70-6.10); White Blood Cell (WBC) Count 6.9 thou/uL (4.8-10.8)
[2021-04-01 14:41] LABS: Hypochromia SLIGHT = 6-15 cells (100X) (0-5/hpf); MDiff Complete? YES; Platelet Morphology Comment Appears Adequate; Polychromasia SLIGHT = 2-3 cells (100X) (0-2/hpf); Stomatocytes SLIGHT = 2-5 cells (100X) (0-1/hpf)
[2021-04-01] MEDS: VANCOMYCIN 1.25 GM/250 ML BAG 1.25 GM in Premix Bag 1 BAG IVPB SCH (14:49)
[2021-04-01] MEDS: Rivaroxaban 10 MG TAB PO SCH (16:58)
[2021-04-01] MEDS: Acetaminophen 500 MG TAB PO PRN (16:58)
[2021-04-01] MEDS: Atorvastatin Calcium 10 MG TAB PO SCH (20:26)
[2021-04-01] MEDS: Cefepime 2 GM in Sodium Chloride 0.9% 100 ML IVPB SCH (20:26)
[2021-04-01] MEDS: Melatonin 3 MG TAB PO SCH (20:28)
[2021-04-01] MEDS ORDERED: Vancomycin 1 GM in Premix Bag 1 BAG IVPB SCH (21:00)
[2021-04-02] MEDS: VANCOMYCIN 1.25 GM/250 ML BAG 1.25 GM in Premix Bag 1 BAG IVPB SCH ×2 (01:10→15:30)
[2021-04-02] MEDS: Transdermal Patch Removal TOP SCH (01:10)
[2021-04-02] MEDS: Cefepime 2 GM in Sodium Chloride 0.9% 100 ML IVPB SCH ×3 (04:32→20:42)
[2021-04-02] MEDS: Mycophenolate ER 180 MG TAB PO SCH ×2 (09:32→20:43)
[2021-04-02] MEDS: Calcium Carbonate 600 MG + Vit D TAB PO SCH ×2 (09:32→20:41)
[2021-04-02] MEDS: Amlodipine 5 MG TAB PO SCH ×2 (09:35→20:41)
[2021-04-02] MEDS: Finasteride 5 MG TAB PO SCH (09:35)
[2021-04-02] MEDS: Senokot S 8.6-50 MG TAB PO SCH ×2 (09:35→20:44)
[2021-04-02] MEDS: Labetalol 100 MG TAB PO SCH ×2 (09:35→20:43)
[2021-04-02] MEDS: Furosemide 40 MG TAB PO SCH (09:36)
[2021-04-02] MEDS: Tamsulosin HCl 0.4 MG CAP PO SCH (09:36)
[2021-04-02] MEDS: prednisoLONE 15 MG/5 ML UDCUP PO SCH (09:38)
[2021-04-02] MEDS: cycloSPORINE, Modified 25 MG CAP PO SCH ×2 (10:14→20:41)
[2021-04-02 11:28] LABS: HIV (1/2) Antibody/Antigen Non-Reactive (NonReactive); HIV 1/2 INDEX 0.35 S/CO (<1.00)
[2021-04-02] MEDS: Lidocaine 5% Patch TD SCH (13:33)
[2021-04-02 14:46] LABS: Legionella Urinary Ag Negative (Negative); Strep pneumo Urine Ag NEGATIVE (NEGATIVE)
[2021-04-02] MEDS: Acetaminophen 500 MG TAB PO PRN (17:13)
[2021-04-02] MEDS: Atorvastatin Calcium 10 MG TAB PO SCH (20:41)
[2021-04-02] MEDS: Enoxaparin Sodium 40 MG/0.4 ML SYRINGE SC SCH ×2 (20:42→20:50)
[2021-04-02] MEDS: Melatonin 3 MG TAB PO SCH (20:43)
[2021-04-03] MEDS: Transdermal Patch Removal TOP SCH (01:10)
[2021-04-03] MEDS: Cefepime 2 GM in Sodium Chloride 0.9% 100 ML IVPB SCH ×3 (03:58→20:31)
[2021-04-03 04:53] LABS: #Lymphocytes 1.2 thou/uL (1.20-3.40); #Monocytes 0.6 thou/uL (0.11-0.59); #Neutrophils 2.6 thou/uL (1.40-6.50); %Basophils 0.2 % (0.0-1.0); %Eosinophils 0.9 % (0.0-10.0); %Lymphocytes 26.5 % (21.0-51.0); %Neutrophils 58.4 % (42.0-75.0); Mean Corpuscular Hemoglobin 26.1 pg (27.0-31.0); Mean Corpuscular Volume 93.1 fL (78.0-98.0); Mean Platelet Volume 7.9 fL (7.4-10.4); Platelet Count 208 thou/uL (130-400); RBC Distribution Width 14.4 % (11.5-14.5); Red Blood Cell (RBC) Count 3.82 mill/uL (4.70-6.10); White Blood Cell (WBC) Count 4.4 thou/uL (4.8-10.8)
[2021-04-03 05:01] LABS: Anion Gap 11 mmol/L (10-20); BUN (Urea Nitrogen) 19 mg/dL (8.4-25.7); Calc. Creatinine Clearance 88 mL/min (70-130); Calcium 9.4 mg/dL (7.8-10.44); Carbon Dioxide 35 mmol/L (23-31); Chloride 97 mmol/L (98-107); Glucose 100 mg/dL (83-110); Potassium 4.6 mmol/L (3.5-5.1); Sodium 138 mmol/L (136-145)
[2021-04-03 05:04] LABS: Vancomycin, Trough 11.7 ug/mL
[2021-04-03] MEDS: VANCOMYCIN 1.25 GM/250 ML BAG 1.25 GM in Premix Bag 1 BAG IVPB SCH ×2 (05:06→17:01)
[2021-04-03] MEDS: Senokot S 8.6-50 MG TAB PO SCH ×2 (10:17→19:45)
[2021-04-03] MEDS: Amlodipine 5 MG TAB PO SCH ×2 (10:17→20:30)
[2021-04-03] MEDS: Finasteride 5 MG TAB PO SCH (10:17)
[2021-04-03] MEDS: Labetalol 100 MG TAB PO SCH ×2 (10:17→20:31)
[2021-04-03] MEDS: cycloSPORINE, Modified 25 MG CAP PO SCH ×2 (10:18→20:31)
[2021-04-03] MEDS: Tamsulosin HCl 0.4 MG CAP PO SCH (10:18)
[2021-04-03] MEDS: Mycophenolate ER 180 MG TAB PO SCH ×2 (10:18→20:47)
[2021-04-03] MEDS: Furosemide 40 MG TAB PO SCH (10:19)
[2021-04-03] MEDS: Calcium Carbonate 600 MG + Vit D TAB PO SCH ×2 (10:19→20:31)
[2021-04-03] MEDS: prednisoLONE 15 MG/5 ML UDCUP PO SCH (10:19)
[2021-04-03] MEDS: Lidocaine 5% Patch TD SCH (13:53)
[2021-04-03] MEDS: Atorvastatin Calcium 10 MG TAB PO SCH (20:31)
[2021-04-03] MEDS: Melatonin 3 MG TAB PO SCH (20:32)
[2021-04-03] MEDS: Enoxaparin Sodium 40 MG/0.4 ML SYRINGE SC SCH (20:32)
[2021-04-04] MEDS: Transdermal Patch Removal TOP SCH (01:26)
[2021-04-04] MEDS: VANCOMYCIN 1.25 GM/250 ML BAG 1.25 GM in Premix Bag 1 BAG IVPB SCH (03:19)
[2021-04-04] MEDS: Cefepime 2 GM in Sodium Chloride 0.9% 100 ML IVPB SCH (04:47)
[2021-04-04 05:54] LABS: #Eosinphils 0.1 thou/uL (0.0-0.7); #Lymphocytes 1.2 thou/uL (1.20-3.40); #Monocytes 0.7 thou/uL (0.11-0.59); #Neutrophils 2.5 thou/uL (1.40-6.50); %Basophils 0.4 % (0.0-1.0); %Eosinophils 1.5 % (0.0-10.0); %Lymphocytes 26.6 % (21.0-51.0); %Monocytes 14.8 % (0.0-10.0); %Neutrophils 56.7 % (42.0-75.0); Hemoglobin 9.9 g/dL (14.0-18.0); Mean Corpuscular HGB CONC 30.7 g/dL (32.0-36.0); Mean Corpuscular Hemoglobin 28.2 pg (27.0-31.0); Mean Corpuscular Volume 91.9 fL (78.0-98.0); Mean Platelet Volume 7.9 fL (7.4-10.4); Platelet Count 195 thou/uL (130-400); RBC Distribution Width 14.4 % (11.5-14.5); White Blood Cell (WBC) Count 4.4 thou/uL (4.8-10.8)
[2021-04-04 06:14] LABS: Anion Gap 8 mmol/L (10-20); BUN (Urea Nitrogen) 15 mg/dL (8.4-25.7); Calc. Creatinine Clearance 107 mL/min (70-130); Calcium 9.4 mg/dL (7.8-10.44); Carbon Dioxide 37 mmol/L (23-31); Chloride 98 mmol/L (98-107); Glucose 99 mg/dL (83-110); Potassium 4.1 mmol/L (3.5-5.1); Sodium 139 mmol/L (136-145)
[2021-04-04] MEDS: Calcium Carbonate 600 MG + Vit D TAB PO SCH ×2 (09:33→20:22)
[2021-04-04] MEDS: Acetaminophen 500 MG TAB PO PRN (09:34)
[2021-04-04] MEDS: Mycophenolate ER 180 MG TAB PO SCH ×2 (09:34→20:49)
[2021-04-04] MEDS: Furosemide 40 MG TAB PO SCH (09:35)
[2021-04-04] MEDS: Labetalol 100 MG TAB PO SCH ×2 (09:35→20:20)
[2021-04-04] MEDS: Tamsulosin HCl 0.4 MG CAP PO SCH (09:36)
[2021-04-04] MEDS: Senokot S 8.6-50 MG TAB PO SCH ×2 (09:36→20:22)
[2021-04-04] MEDS: Finasteride 5 MG TAB PO SCH (09:36)
[2021-04-04] MEDS: Amlodipine 5 MG TAB PO SCH ×2 (09:36→20:22)
[2021-04-04] MEDS: prednisoLONE 15 MG/5 ML UDCUP PO SCH (09:36)
[2021-04-04] MEDS: cycloSPORINE, Modified 25 MG CAP PO SCH ×2 (09:36→20:50)
[2021-04-04] MEDS: Lidocaine 5% Patch TD SCH (13:40)
[2021-04-04] MEDS: Amoxicillin/Potassium Clav 875 MG TAB PO SCH (20:19)
[2021-04-04] MEDS: Melatonin 3 MG TAB PO SCH (20:20)
[2021-04-04] MEDS: Atorvastatin Calcium 10 MG TAB PO SCH (20:23)
[2021-04-04] MEDS: Enoxaparin Sodium 40 MG/0.4 ML SYRINGE SC SCH (20:49)
[2021-04-05] MEDS: Transdermal Patch Removal TOP SCH (02:33)
[2021-04-05 05:30] LABS: Hemoglobin 10.1 g/dL (14.0-18.0); Mean Corpuscular HGB CONC 30.8 g/dL (32.0-36.0); Mean Corpuscular Hemoglobin 28.6 pg (27.0-31.0); Mean Corpuscular Volume 92.8 fL (78.0-98.0); Mean Platelet Volume 7.5 fL (7.4-10.4); Platelet Count 206 thou/uL (130-400); RBC Distribution Width 14.4 % (11.5-14.5); Red Blood Cell (RBC) Count 3.54 mill/uL (4.70-6.10); White Blood Cell (WBC) Count 3.9 thou/uL (4.8-10.8)
[2021-04-05 05:46] LABS: Anion Gap 11 mmol/L (10-20); BUN (Urea Nitrogen) 12 mg/dL (8.4-25.7); Calc. Creatinine Clearance 108 mL/min (70-130); Calcium 9.5 mg/dL (7.8-10.44); Carbon Dioxide 35 mmol/L (23-31); Chloride 99 mmol/L (98-107); Glucose 103 mg/dL (83-110); Potassium 4.2 mmol/L (3.5-5.1); Sodium 141 mmol/L (136-145)
[2021-04-05 06:24] LABS: Band 2 % (5-11); Eosinophils 3 % (0-10); Hypochromia SLIGHT = 6-15 cells (100X) (0-5/hpf); Lymphocytes 36 % (21-51); MDiff Complete? YES; Monocytes 9 % (0-10); Neutrophil 50 % (42-75); Platelet Morphology Comment Appears Adequate; Polychromasia SLIGHT = 2-3 cells (100X) (0-2/hpf)
[2021-04-05] MEDS: prednisoLONE 15 MG/5 ML UDCUP PO SCH (09:35)
[2021-04-05] MEDS: Labetalol 100 MG TAB PO SCH ×2 (09:35→20:35)
[2021-04-05] MEDS: Finasteride 5 MG TAB PO SCH (09:36)
[2021-04-05] MEDS: Senokot S 8.6-50 MG TAB PO SCH ×2 (09:36→20:36)
[2021-04-05] MEDS: Amoxicillin/Potassium Clav 875 MG TAB PO SCH ×2 (09:36→20:34)
[2021-04-05] MEDS: Tamsulosin HCl 0.4 MG CAP PO SCH (09:37)
[2021-04-05] MEDS: Calcium Carbonate 600 MG + Vit D TAB PO SCH ×2 (09:37→20:34)
[2021-04-05] MEDS: Furosemide 40 MG TAB PO SCH (09:37)
[2021-04-05] MEDS: Amlodipine 5 MG TAB PO SCH ×2 (09:38→20:33)
[2021-04-05] MEDS ORDERED: Furosemide 20 MG/2 ML VIAL SLOW IVP SCH (10:00)
[2021-04-05] MEDS: cycloSPORINE, Modified 25 MG CAP PO SCH ×2 (10:18→21:30)
[2021-04-05] MEDS: Mycophenolate ER 180 MG TAB PO SCH ×2 (10:18→20:36)
[2021-04-05] MEDS ORDERED: traMADol HCl 50 MG TAB PO PRN ×2 (12:52→12:54)
[2021-04-05] MEDS: Lidocaine 5% Patch TD SCH (14:39)
[2021-04-05] MEDS: Atorvastatin Calcium 10 MG TAB PO SCH (20:34)
[2021-04-05] MEDS: Enoxaparin Sodium 40 MG/0.4 ML SYRINGE SC SCH ×2 (20:34→20:47)
[2021-04-05] MEDS: Melatonin 3 MG TAB PO SCH (20:36)
[2021-04-06] MEDS: Transdermal Patch Removal TOP SCH (01:50)
[2021-04-06 05:41] LABS: BUN (Urea Nitrogen) 18 mg/dL (8.4-25.7); Calc. Creatinine Clearance 76 mL/min (70-130); Calcium 9.1 mg/dL (7.8-10.44); Glucose 96 mg/dL (83-110)
[2021-04-06 05:42] LABS: Band 2 % (5-11); Eosinophils 1 % (0-10); Hemoglobin 9.9 g/dL (14.0-18.0); Hypochromia SLIGHT = 6-15 cells (100X) (0-5/hpf); Lymphocytes 30 % (21-51); MDiff Complete? YES; Mean Corpuscular HGB CONC 30.5 g/dL (32.0-36.0); Mean Corpuscular Hemoglobin 28.5 pg (27.0-31.0); Mean Corpuscular Volume 93.3 fL (78.0-98.0); Mean Platelet Volume 7.3 fL (7.4-10.4); Monocytes 16 % (0-10); Neutrophil 51 % (42-75); Platelet Count 191 thou/uL (130-400); Platelet Morphology Comment Appears Adequate; RBC Distribution Width 14.6 % (11.5-14.5); Red Blood Cell (RBC) Count 3.47 mill/uL (4.70-6.10); White Blood Cell (WBC) Count 4.1 thou/uL (4.8-10.8)
[2021-04-06 05:52] LABS: Anion Gap 13 mmol/L (10-20); Carbon Dioxide 36 mmol/L (23-31); Chloride 95 mmol/L (98-107); Sodium 140 mmol/L (136-145)
[2021-04-06] MEDS: Calcium Carbonate 600 MG + Vit D TAB PO SCH (09:15)
[2021-04-06] MEDS: Amlodipine 5 MG TAB PO SCH (09:15)
[2021-04-06] MEDS: Amoxicillin/Potassium Clav 875 MG TAB PO SCH (09:15)
[2021-04-06] MEDS: Finasteride 5 MG TAB PO SCH (09:16)
[2021-04-06] MEDS: cycloSPORINE, Modified 25 MG CAP PO SCH (09:16)
[2021-04-06] MEDS: Furosemide 40 MG TAB PO SCH (09:16)
[2021-04-06] MEDS: Senokot S 8.6-50 MG TAB PO SCH (09:17)
[2021-04-06] MEDS: Tamsulosin HCl 0.4 MG CAP PO SCH (09:18)
[2021-04-06] MEDS: prednisoLONE 15 MG/5 ML UDCUP PO SCH (09:22)
[2021-04-06] MEDS: Labetalol 100 MG TAB PO SCH (09:25)
[2021-04-06] MEDS: Mycophenolate ER 180 MG TAB PO SCH (09:28)
[2021-04-06 11:31] VITALS: TEMP 98.4
[2021-04-06] MEDS: Lidocaine 5% Patch TD SCH (14:18)
[2021-04-06 14:57] LABS: Ref Lab Test Ordered RESP PROFILE; Reference Lab Name LABCORP
[2021-04-06 16:16] VITALS: BP 138/71
[2021-04-09 18:13] LABS: CMV DNA-PCR Test Positive < 200 IU/mL (Negative)
== END 2021-04-06 17:12 | DRG 194 ==
LOC: ERS 18:44 → ERHOLD 03-28 00:47 → 2SW 03-28 10:02 → OBSVTOIN 03-29 17:57 → 2SW 04-03 15:12
PROVIDERS: ADMIT Family Medicine; ATTEND Family Medicine
DX: J18.9 Pneumonia, unspecified organism (principal); Z94.0 Kidney transplant status; Y95 Nosocomial condition; Z96.653 Presence of artificial knee joint, bilateral; Z20.822 Contact with and (suspected) exposure to COVID-19; M25.512 Pain in left shoulder; B18.2 Chronic viral hepatitis C; E78.00 Pure hypercholesterolemia, unspecified; I48.91 Unspecified atrial fibrillation; K59.00 Constipation, unspecified; R09.02 Hypoxemia; N40.0 Benign prostatic hyperplasia without lower urinary tract symptoms; M19.90 Unspecified osteoarthritis, unspecified site; I12.9 Hypertensive chronic kidney disease with stage 1 through stage 4 chronic kidney disease, or unspecified chronic kidney disease; N18.9 Chronic kidney disease, unspecified; G14 Postpolio syndrome; G47.33 Obstructive sleep apnea (adult) (pediatric); Z86.711 Personal history of pulmonary embolism; Z90.89 Acquired absence of other organs; Z91.81 History of falling; Z88.2 Allergy status to sulfonamides; Z88.7 Allergy status to serum and vaccine; Z88.8 Allergy status to other drugs, medicaments and biological substances; Z79.01 Long term (current) use of anticoagulants; Z79.899 Other long term (current) drug therapy; Z86.718 Personal history of other venous thrombosis and embolism; D63.1 Anemia in chronic kidney disease
CPT/HCPCS: 0240U; 36415; 36416; 71045; 71260; 78452; 80048; 80053; 80202; 82553; 83690; 83735; 83880; 84145; 84484; 85025; 87040; 87385; 87389; 87449; 87497; 87633; 87899; 93005; 93017; A9500; G0378; J0153; J0692; J1650; J1940; J2405; J3370; J3490; J7120; J7510; J7515; J7518; U0002

== ENCOUNTER 2021-04-24 17:20 | Inpatient (IN) | payer MEDICARE, OTHER ==
[2021-04-24 18:29] LABS: #Lymphocytes 1.4 thou/uL (1.20-3.40); #Monocytes 0.9 thou/uL (0.11-0.59); #Neutrophils 5.1 thou/uL (1.40-6.50); %Basophils 0.6 % (0.0-1.0); %Eosinophils 0.3 % (0.0-10.0); %Lymphocytes 18.3 % (21.0-51.0); %Monocytes 11.8 % (0.0-10.0); %Neutrophils 69.1 % (42.0-75.0); Hemoglobin 10.4 g/dL (14.0-18.0); Mean Corpuscular HGB CONC 30.4 g/dL (32.0-36.0); Mean Corpuscular Hemoglobin 28.5 pg (27.0-31.0); Mean Corpuscular Volume 93.7 fL (78.0-98.0); Mean Platelet Volume 8.9 fL (7.4-10.4); Platelet Count 110 thou/uL (130-400); RBC Distribution Width 14.8 % (11.5-14.5); Red Blood Cell (RBC) Count 3.64 mill/uL (4.70-6.10); White Blood Cell (WBC) Count 7.4 thou/uL (4.8-10.8)
[2021-04-24 18:43] LABS: ALT (SGPT) 8 U/L (8-55); AST (SGOT) 13 U/L (5-34); Albumin 3.7 g/dL (3.4-4.8); Alkaline Phosphatase 66 U/L (40-110); Anion Gap 12 mmol/L (10-20); BUN (Urea Nitrogen) 22 mg/dL (8.4-25.7); Bilirubin, Total 0.6 mg/dL (0.2-1.2); CK (CPK) 185 U/L (30-200); Calc. Creatinine Clearance 0 mL/min (70-130); Calcium 9.3 mg/dL (7.8-10.44); Carbon Dioxide 36 mmol/L (23-31); Chloride 99 mmol/L (98-107); Globulin 2.8 g/dL (2.4-3.5); Glucose 121 mg/dL (83-110); Lipase 25 U/L (8-78); Potassium 4.8 mmol/L (3.5-5.1); Protein, Total 6.5 g/dL (5.8-8.1); Sodium 142 mmol/L (136-145)
[2021-04-24] MEDS ORDERED: Furosemide 40 MG/4 ML VIAL ONE ×2 (18:51→23:39)
[2021-04-24] MEDS ORDERED: Nitroglycerin 2% Ointment 1 INCH/1 GM Packet ONE (18:52)
[2021-04-24] MEDS ORDERED: Vancomycin 1 GM/200 ML BAG ONE (18:52)
[2021-04-24 18:55] LABS: Band 6 % (5-11); Lymphocytes 18 % (21-51); MDiff Complete? YES; Monocytes 12 % (0-10); Neutrophil 64 % (42-75); Platelet Morphology Comment Appears Decreased; Polychromasia SLIGHT = 2-3 cells (100X) (0-2/hpf)
[2021-04-24 19:05] LABS: CKMB 2.2 ng/mL (0-6.6)
[2021-04-24] MEDS ORDERED: Aspirin Chewable 81 MG TAB ONE (19:48)
[2021-04-24] MEDS ORDERED: Sodium Chloride 0.9% 1,000 ML IV SCH (20:45)
[2021-04-24] MEDS ORDERED: Ondansetron PF 4 MG/2 ML Vial IVP PRN (20:45)
[2021-04-24] MEDS ORDERED: Ondansetron ODT 4 MG TAB SL PRN (20:45)
[2021-04-24] MEDS ORDERED: Cefepime 2 GM VIAL ONE (20:54)
[2021-04-24] MEDS ORDERED: Furosemide 40 MG/4 ML VIAL SLOW IVP SCH (21:00)
[2021-04-24 21:41] LABS: Actual Bicarbonate (HCO3a) 34.1 mEq/L (22-28); Analyzer IN Cardio ER; Base Excess (BEa) 2.9 mEq/L (-2.0 to +3.0); Calcium, Ionized (arterial) 1.25 mmol/L (1.12-1.30); Carboxyhemoglobin (COHb) 0.3 gm% (0.0-3.0); Hemoglobin (Hb) 10.8 g/dL (14.0-18.0); O2 Tension (PaO2), arterial 93.1 mmHg (> 70.0); Potassium - ABG Lab 4.71 mmol/L (3.70-5.30)
[2021-04-24 21:49] LABS: SARS-CoV-2 NAA Rapid Test Not Detected (NotDetected)
[2021-04-24 22:11] LABS: pH, Arterial 7.15 (7.35-7.45)
[2021-04-24 22:12] LABS: ALV-art Gradient 37.955 mmHg (0-20); CO2 Tension 100.5 mmHg (35.0-45.0); Puncture Site RRA
[2021-04-24 22:29] LABS: Bacteria/HPF None Seen HPF (None Seen); Bilirubin Negative (Negative); Blood, Urine Negative (Negative); Clarity Clear (Clear); Glucose, Urine (Dipstick) Normal (Negative); Ketone, Urine Negative (Negative); Leukocyte Negative Leu/uL (Negative); Mucous/LPF Rare LPF (<2+); Nitrite Negative (Negative); Protein, Urine (Dipstick) Negative (Neg-Trace); RBC/HPF 0-3 HPF (0-3); Specific Gravity, Urine 1.018 (1.002-1.036); Squamous Epithelial 0-3 HPF (0-3); Urobilinogen Normal mg/dL (Less than 2); WBC/HPF 0-3 HPF (0-3)
[2021-04-24 22:31] LABS: Urine Culture Reflex No No
[2021-04-24] MEDS ORDERED: Albuterol Sulfate 2.5 mg/3 ml Neb NEB SCH (22:45)
[2021-04-25] MEDS ORDERED: Enoxaparin Sodium 40 MG/0.4 ML SYRINGE SC SCH (00:15)
[2021-04-25] MEDS: Lactated Ringer's 1,000 ML IV SCH ×2 (03:04→13:41)
[2021-04-25 03:45] LABS: Free T4 (Free Thyroxine) 0.87 ng/dL (0.70-1.48)
[2021-04-25 04:27] LABS: Band 1 % (5-11); Hemoglobin 7.8 g/dL (14.0-18.0); Hypochromia SLIGHT = 6-15 cells (100X) (0-5/hpf); Lymphocytes 11 % (21-51); MDiff Complete? YES; Mean Corpuscular HGB CONC 29.3 g/dL (32.0-36.0); Mean Corpuscular Hemoglobin 28.5 pg (27.0-31.0); Mean Corpuscular Volume 97.2 fL (78.0-98.0); Mean Platelet Volume 8.7 fL (7.4-10.4); Monocytes 23 % (0-10); Neutrophil 65 % (42-75); Platelet Count 85 thou/uL (130-400); Platelet Morphology Comment Appears Decreased; RBC Distribution Width 14.6 % (11.5-14.5); Red Blood Cell (RBC) Count 2.72 mill/uL (4.70-6.10); White Blood Cell (WBC) Count 5.2 thou/uL (4.8-10.8)
[2021-04-25 04:41] LABS: ALT (SGPT) 7 U/L (8-55); AST (SGOT) 11 U/L (5-34); Albumin 2.6 g/dL (3.4-4.8); Alkaline Phosphatase 40 U/L (40-110); Anion Gap 19 mmol/L (10-20); BUN (Urea Nitrogen) 18 mg/dL (8.4-25.7); Bilirubin, Total 0.4 mg/dL (0.2-1.2); Calc. Creatinine Clearance 117 mL/min (70-130); Calcium 8.3 mg/dL (7.8-10.44); Carbon Dioxide 23 mmol/L (23-31); Chloride 102 mmol/L (98-107); Globulin 2.2 g/dL (2.4-3.5); Glucose 74 mg/dL (83-110); Potassium 4.5 mmol/L (3.5-5.1); Protein, Total 4.8 g/dL (5.8-8.1); Sodium 139 mmol/L (136-145)
[2021-04-25 06:00] LABS: Actual Bicarbonate (HCO3a) 33.1 mEq/L (22-28); Base Excess (BEa) 5.5 mEq/L (-2.0 to +3.0); Calcium, Ionized (arterial) 1.17 mmol/L (1.12-1.30); Carboxyhemoglobin (COHb) 0.2 gm% (0.0-3.0); Hemoglobin (Hb) 10.6 g/dL (14.0-18.0); O2 Tension (PaO2), arterial 61.7 mmHg (> 70.0); Potassium - ABG Lab 4.33 mmol/L (3.70-5.30); pH, Arterial 7.32 (7.35-7.45)
[2021-04-25] MEDS ORDERED: Vancomycin 1 GM in Premix Bag 1 BAG IVPB SCH (06:00)
[2021-04-25 06:01] LABS: CO2 Tension 65.4 mmHg (35.0-45.0); Puncture Site RRA
[2021-04-25] MEDS ORDERED: Piperacillin/Tazobactam 3.375 GM in Sodium Chloride 0.9% 100 ML IVPB SCH (07:00)
[2021-04-25] MEDS ORDERED: VANCOMYCIN IVPB PRN (09:10)
[2021-04-25] MEDS: Labetalol HCl 100 MG TAB PO SCH ×2 (09:29→21:43)
[2021-04-25] MEDS: Amlodipine 5 MG TAB PO SCH ×2 (09:29→21:44)
[2021-04-25] MEDS: cycloSPORINE, Modified 25 MG CAP PO SCH ×2 (09:30→21:44)
[2021-04-25] MEDS: Calcium Carbonate 600 MG + Vit D TAB PO SCH ×2 (09:30→21:42)
[2021-04-25] MEDS: Mycophenolate ER 180 MG TAB PO SCH ×2 (09:30→21:42)
[2021-04-25] MEDS: Tamsulosin HCl 0.4 MG CAP PO SCH (09:30)
[2021-04-25] MEDS: Finasteride 5 MG TAB PO SCH (09:30)
[2021-04-25] MEDS: Furosemide 40 MG TAB PO SCH (09:31)
[2021-04-25] MEDS: prednisoLONE 15 MG/5 ML UDCUP PO SCH (09:31)
[2021-04-25] MEDS ORDERED: Vancomycin HCl 500 MG in Sodium Chloride 0.9% 100 ML IVPB SCH (10:30)
[2021-04-25] MEDS: Piperacillin/Tazobactam 3.375 GM in Sodium Chloride 0.9% 100 ML IVPB SCH ×2 (11:39→19:34)
[2021-04-25] MEDS: Lidocaine 5% Patch TD SCH (12:49)
[2021-04-25 13:05] LABS: Amphetamine Not Detected (NotDetected); Barbiturates Screen Not Detected (NotDetected); Benzodiazepine Screen Not Detected (NotDetected); Cocaine Metabolite Screen Not Detected (NotDetected); Methadone Not Detected (NotDetected); Methamphetamine Not Detected (NotDetected); Opiate Screen Not Detected (NotDetected); Oxycodone Screen Not Detected (NotDetected); Phencyclidine (PCP) Not Detected (NotDetected); THC/Cannabinoid Screen Not Detected (NotDetected); Tricyclic Screen Not Detected (NotDetected)
[2021-04-25] MEDS ORDERED: Vancomycin 1.5 GRAM/300 ML BAG 1.5 GM in Premix Bag 1 BAG IVPB SCH (18:00)
[2021-04-25] MEDS: Acetaminophen 500 MG TAB PO PRN ×2 (19:34→23:07)
[2021-04-25] MEDS: Atorvastatin Calcium 40 MG TAB PO SCH (21:44)
[2021-04-25] MEDS: Enoxaparin Sodium 40 MG/0.4 ML SYRINGE SC SCH (21:47)
[2021-04-26] MEDS: Piperacillin/Tazobactam 3.375 GM in Sodium Chloride 0.9% 100 ML IVPB SCH ×3 (03:13→18:44)
[2021-04-26] MEDS: Finasteride 5 MG TAB PO SCH (08:58)
[2021-04-26] MEDS: Mycophenolate ER 180 MG TAB PO SCH ×2 (08:58→20:36)
[2021-04-26] MEDS: Calcium Carbonate 600 MG + Vit D TAB PO SCH ×2 (08:58→20:38)
[2021-04-26] MEDS: cycloSPORINE, Modified 25 MG CAP PO SCH ×2 (08:59→20:37)
[2021-04-26] MEDS: Furosemide 40 MG TAB PO SCH (08:59)
[2021-04-26] MEDS: Amlodipine 5 MG TAB PO SCH ×2 (08:59→20:36)
[2021-04-26] MEDS: Labetalol HCl 100 MG TAB PO SCH ×2 (08:59→20:41)
[2021-04-26] MEDS: Tamsulosin HCl 0.4 MG CAP PO SCH (08:59)
[2021-04-26] MEDS: prednisoLONE 15 MG/5 ML UDCUP PO SCH (10:34)
[2021-04-26] MEDS: Lidocaine 5% Patch TD SCH (12:43)
[2021-04-26 13:55] LABS: Reference Lab Name LABCORP
[2021-04-26 13:56] LABS: Ref Lab Test Ordered MUSK AB
[2021-04-26 17:37] LABS: Anion Gap 16 mmol/L (10-20); BUN (Urea Nitrogen) 14 mg/dL (8.4-25.7); Calc. Creatinine Clearance 85 mL/min (70-130); Calcium 9.1 mg/dL (7.8-10.44); Carbon Dioxide 32 mmol/L (23-31); Chloride 97 mmol/L (98-107); Glucose 121 mg/dL (83-110); Potassium 4.4 mmol/L (3.5-5.1); Sodium 141 mmol/L (136-145)
[2021-04-26 18:05] LABS: #Lymphocytes 0.7 thou/uL (1.20-3.40); #Monocytes 0.2 thou/uL (0.11-0.59); #Neutrophils 3.6 thou/uL (1.40-6.50); %Basophils 0.9 % (0.0-1.0); %Eosinophils 0.4 % (0.0-10.0); %Lymphocytes 16.3 % (21.0-51.0); %Monocytes 3.6 % (0.0-10.0); %Neutrophils 78.8 % (42.0-75.0); Hemoglobin 10.4 g/dL (14.0-18.0); Mean Corpuscular HGB CONC 29.3 g/dL (32.0-36.0); Mean Corpuscular Hemoglobin 27.4 pg (27.0-31.0); Mean Corpuscular Volume 93.4 fL (78.0-98.0); Platelet Count 131 thou/uL (130-400); RBC Distribution Width 14.6 % (11.5-14.5); Red Blood Cell (RBC) Count 3.78 mill/uL (4.70-6.10); White Blood Cell (WBC) Count 4.5 thou/uL (4.8-10.8)
[2021-04-26 18:06] LABS: Hypochromia SLIGHT = 6-15 cells (100X) (0-5/hpf); MDiff Complete? YES; Platelet Morphology Comment Appears Adequate; Polychromasia SLIGHT = 2-3 cells (100X) (0-2/hpf); Stomatocytes SLIGHT = 2-5 cells (100X) (0-1/hpf)
[2021-04-26] MEDS: Enoxaparin Sodium 40 MG/0.4 ML SYRINGE SC SCH ×2 (20:36→20:49)
[2021-04-26] MEDS: Atorvastatin Calcium 40 MG TAB PO SCH (20:37)
[2021-04-27] MEDS: Piperacillin/Tazobactam 3.375 GM in Sodium Chloride 0.9% 100 ML IVPB SCH (03:39)
[2021-04-27 04:20] LABS: Anion Gap 16 mmol/L (10-20); BUN (Urea Nitrogen) 14 mg/dL (8.4-25.7); Calc. Creatinine Clearance 88 mL/min (70-130); Calcium 9.5 mg/dL (7.8-10.44); Carbon Dioxide 34 mmol/L (23-31); Chloride 97 mmol/L (98-107); Glucose 103 mg/dL (83-110); Potassium 4.6 mmol/L (3.5-5.1); Sodium 142 mmol/L (136-145)
[2021-04-27 04:27] LABS: Hemoglobin 9.7 g/dL (14.0-18.0); Mean Corpuscular HGB CONC 29.2 g/dL (32.0-36.0); Mean Corpuscular Hemoglobin 26.9 pg (27.0-31.0); Mean Corpuscular Volume 92.4 fL (78.0-98.0); RBC Distribution Width 14.5 % (11.5-14.5); White Blood Cell (WBC) Count 4.4 thou/uL (4.8-10.8)
[2021-04-27 05:04] LABS: #Lymphocytes 1.3 thou/uL (1.20-3.40); #Monocytes 0.6 thou/uL (0.11-0.59); #Neutrophils 2.4 thou/uL (1.40-6.50); %Basophils 0.2 % (0.0-1.0); %Eosinophils 0.4 % (0.0-10.0); %Lymphocytes 30.2 % (21.0-51.0); %Monocytes 13.5 % (0.0-10.0); %Neutrophils 55.6 % (42.0-75.0); Anisocytosis SLIGHT = 6-15 cells (100X) (0-5/hpf); MDiff Complete? YES; Mean Platelet Volume 8.8 fL (7.4-10.4); Platelet Count 116 thou/uL (130-400); Platelet Morphology Comment Appears Decreased
[2021-04-27] MEDS ORDERED: Konsyl 6 gm Packet PO SCH (09:00)
[2021-04-27] MEDS: Furosemide 40 MG TAB PO SCH (10:14)
[2021-04-27] MEDS: Finasteride 5 MG TAB PO SCH (10:14)
[2021-04-27] MEDS: Calcium Carbonate 600 MG + Vit D TAB PO SCH ×2 (10:14→20:57)
[2021-04-27] MEDS: cycloSPORINE, Modified 25 MG CAP PO SCH ×2 (10:14→20:58)
[2021-04-27] MEDS: prednisoLONE 15 MG/5 ML UDCUP PO SCH (10:18)
[2021-04-27] MEDS: Labetalol HCl 100 MG TAB PO SCH ×2 (10:18→20:58)
[2021-04-27] MEDS: Metamucil PACK PO SCH (10:19)
[2021-04-27] MEDS: Tamsulosin HCl 0.4 MG CAP PO SCH (10:19)
[2021-04-27] MEDS: Amlodipine 5 MG TAB PO SCH (10:25)
[2021-04-27] MEDS: Lidocaine 5% Patch TD SCH (14:07)
[2021-04-27] MEDS: metroNIDAZOLE 500 MG TAB PO SCH ×2 (14:07→20:58)
[2021-04-27] MEDS: Ciprofloxacin 500 MG TAB PO SCH (20:57)
[2021-04-27] MEDS: Enoxaparin Sodium 40 MG/0.4 ML SYRINGE SC SCH (20:57)
[2021-04-27] MEDS: Atorvastatin Calcium 40 MG TAB PO SCH (20:58)
[2021-04-28 07:00] LABS: Hemoglobin 10.2 g/dL (14.0-18.0); Mean Corpuscular HGB CONC 30.1 g/dL (32.0-36.0); Mean Corpuscular Hemoglobin 27.8 pg (27.0-31.0); Mean Corpuscular Volume 92.4 fL (78.0-98.0); Mean Platelet Volume 8.1 fL (7.4-10.4); Platelet Count 138 thou/uL (130-400); RBC Distribution Width 14.6 % (11.5-14.5); Red Blood Cell (RBC) Count 3.68 mill/uL (4.70-6.10); White Blood Cell (WBC) Count 4.5 thou/uL (4.8-10.8)
[2021-04-28 07:16] LABS: BUN (Urea Nitrogen) 8 mg/dL (8.4-25.7); Calc. Creatinine Clearance 110 mL/min (70-130); Calcium 9.3 mg/dL (7.8-10.44); Glucose 96 mg/dL (83-110)
[2021-04-28 07:25] LABS: Anion Gap 16 mmol/L (10-20); Carbon Dioxide 36 mmol/L (23-31); Chloride 96 mmol/L (98-107); Potassium 3.7 mmol/L (3.5-5.1); Sodium 144 mmol/L (136-145)
[2021-04-28 07:56] LABS: Band 7 % (5-11); Eosinophils 1 % (0-10); Hypochromia SLIGHT = 6-15 cells (100X) (0-5/hpf); Lymphocytes 14 % (21-51); MDiff Complete? YES; Monocytes 20 % (0-10); Neutrophil 39 % (42-75); Platelet Morphology Comment Appears Adequate; Polychromasia SLIGHT = 2-3 cells (100X) (0-2/hpf); Reactive Lymphocytes 19 % (0-10); Stomatocytes SLIGHT = 2-5 cells (100X) (0-1/hpf); Target Cells SLIGHT = 2-5 cells (100X) (0-1/hpf)
[2021-04-28] MEDS: cycloSPORINE, Modified 25 MG CAP PO SCH ×2 (08:34→20:24)
[2021-04-28] MEDS: Finasteride 5 MG TAB PO SCH (08:34)
[2021-04-28] MEDS: Calcium Carbonate 600 MG + Vit D TAB PO SCH ×2 (08:34→20:23)
[2021-04-28] MEDS: Ciprofloxacin 500 MG TAB PO SCH ×2 (08:34→20:23)
[2021-04-28] MEDS: Labetalol HCl 100 MG TAB PO SCH ×2 (08:35→20:25)
[2021-04-28] MEDS: Furosemide 40 MG TAB PO SCH (08:35)
[2021-04-28] MEDS: NIFEdipine XL 30 MG TAB PO SCH (08:37)
[2021-04-28] MEDS: prednisoLONE 15 MG/5 ML UDCUP PO SCH (08:37)
[2021-04-28] MEDS: metroNIDAZOLE 500 MG TAB PO SCH ×3 (08:37→20:23)
[2021-04-28] MEDS: Metamucil PACK PO SCH (08:38)
[2021-04-28] MEDS: Tamsulosin HCl 0.4 MG CAP PO SCH (08:38)
[2021-04-28] MEDS ORDERED: FLU VACC QS2021-22(65YR UP)/PF 240 MCG/0.7 ML SYRINGE IM ONE (09:00)
[2021-04-28] MEDS: Lidocaine 5% Patch TD SCH ×2 (14:52→15:06)
[2021-04-28] MEDS: Acetaminophen 500 MG TAB PO PRN (15:05)
[2021-04-28] MEDS: Atorvastatin Calcium 40 MG TAB PO SCH (20:23)
[2021-04-28] MEDS: Enoxaparin Sodium 40 MG/0.4 ML SYRINGE SC SCH (20:26)
[2021-04-29] MEDS: Acetaminophen 500 MG TAB PO PRN ×2 (05:03→13:19)
[2021-04-29] MEDS: Metamucil PACK PO SCH (08:54)
[2021-04-29] MEDS: metroNIDAZOLE 500 MG TAB PO SCH ×3 (08:55→21:18)
[2021-04-29] MEDS: Ciprofloxacin 500 MG TAB PO SCH ×2 (08:55→21:18)
[2021-04-29] MEDS: Tamsulosin HCl 0.4 MG CAP PO SCH (08:55)
[2021-04-29] MEDS: NIFEdipine XL 30 MG TAB PO SCH (08:55)
[2021-04-29] MEDS: Calcium Carbonate 600 MG + Vit D TAB PO SCH ×2 (08:55→21:17)
[2021-04-29] MEDS: Furosemide 40 MG TAB PO SCH (08:56)
[2021-04-29] MEDS: Finasteride 5 MG TAB PO SCH (08:56)
[2021-04-29 08:57] LABS: Anion Gap 13 mmol/L (10-20); BUN (Urea Nitrogen) 10 mg/dL (8.4-25.7); Calc. Creatinine Clearance 106 mL/min (70-130); Calcium 8.8 mg/dL (7.8-10.44); Carbon Dioxide 37 mmol/L (23-31); Chloride 94 mmol/L (98-107); Glucose 124 mg/dL (83-110); Potassium 3.3 mmol/L (3.5-5.1); Sodium 141 mmol/L (136-145)
[2021-04-29] MEDS: predniSONE 5 MG TAB PO SCH (08:57)
[2021-04-29] MEDS: cycloSPORINE, Modified 25 MG CAP PO SCH ×2 (08:57→21:18)
[2021-04-29] MEDS: Labetalol HCl 100 MG TAB PO SCH ×2 (09:02→21:17)
[2021-04-29] MEDS ORDERED: Potassium Chloride 20 MEQ TAB PO SCH (11:30)
[2021-04-29 11:43] LABS: #Lymphocytes 1.4 thou/uL (1.20-3.40); #Monocytes 0.6 thou/uL (0.11-0.59); #Neutrophils 1.8 thou/uL (1.40-6.50); %Basophils 0.1 % (0.0-1.0); %Eosinophils 1.1 % (0.0-10.0); %Lymphocytes 37.2 % (21.0-51.0); %Monocytes 14.6 % (0.0-10.0); Anisocytosis SLIGHT = 6-15 cells (100X) (0-5/hpf); Hemoglobin 10.3 g/dL (14.0-18.0); Hypochromia SLIGHT = 6-15 cells (100X) (0-5/hpf); MDiff Complete? YES; Mean Corpuscular HGB CONC 28.9 g/dL (32.0-36.0); Mean Corpuscular Volume 93.3 fL (78.0-98.0); Mean Platelet Volume 7.7 fL (7.4-10.4); Platelet Count 150 thou/uL (130-400); RBC Distribution Width 14.7 % (11.5-14.5); Red Blood Cell (RBC) Count 3.83 mill/uL (4.70-6.10); White Blood Cell (WBC) Count 3.8 thou/uL (4.8-10.8)
[2021-04-29] MEDS: Lidocaine 5% Patch TD SCH (16:31)
[2021-04-29] MEDS: Enoxaparin Sodium 40 MG/0.4 ML SYRINGE SC SCH (21:16)
[2021-04-29] MEDS: Atorvastatin Calcium 40 MG TAB PO SCH (21:18)
[2021-04-30 07:08] LABS: Hemoglobin 10.9 g/dL (14.0-18.0); Mean Corpuscular HGB CONC 29.6 g/dL (32.0-36.0); Mean Corpuscular Hemoglobin 27.8 pg (27.0-31.0); Mean Corpuscular Volume 93.7 fL (78.0-98.0); Mean Platelet Volume 7.9 fL (7.4-10.4); Platelet Count 151 thou/uL (130-400); RBC Distribution Width 14.8 % (11.5-14.5); Red Blood Cell (RBC) Count 3.93 mill/uL (4.70-6.10); White Blood Cell (WBC) Count 3.9 thou/uL (4.8-10.8)
[2021-04-30 07:25] LABS: Anion Gap 13 mmol/L (10-20); BUN (Urea Nitrogen) 10 mg/dL (8.4-25.7); Calc. Creatinine Clearance 69 mL/min (70-130); Calcium 9.3 mg/dL (7.8-10.44); Carbon Dioxide 37 mmol/L (23-31); Chloride 97 mmol/L (98-107); Glucose 91 mg/dL (83-110); Potassium 3.8 mmol/L (3.5-5.1); Sodium 143 mmol/L (136-145)
[2021-04-30] MEDS ORDERED: Potassium Chloride 20 MEQ TAB PO SCH (08:00)
[2021-04-30 09:06] LABS: Band 3 % (5-11); Eosinophils 3 % (0-10); Lymphocytes 34 % (21-51); MDiff Complete? YES; Monocytes 15 % (0-10); Neutrophil 45 % (42-75); Platelet Morphology Comment Appears Adequate; Polychromasia SLIGHT = 2-3 cells (100X) (0-2/hpf)
[2021-04-30] MEDS: Ciprofloxacin 500 MG TAB PO SCH ×2 (10:31→20:07)
[2021-04-30] MEDS: Calcium Carbonate 600 MG + Vit D TAB PO SCH ×2 (10:32→20:07)
[2021-04-30] MEDS: predniSONE 5 MG TAB PO SCH (10:32)
[2021-04-30] MEDS: Furosemide 40 MG TAB PO SCH (10:33)
[2021-04-30] MEDS: Tamsulosin HCl 0.4 MG CAP PO SCH (10:34)
[2021-04-30] MEDS: metroNIDAZOLE 500 MG TAB PO SCH ×3 (10:35→20:06)
[2021-04-30] MEDS: Metamucil PACK PO SCH (10:36)
[2021-04-30] MEDS: Finasteride 5 MG TAB PO SCH (10:36)
[2021-04-30] MEDS: cycloSPORINE, Modified 25 MG CAP PO SCH ×2 (10:37→20:05)
[2021-04-30] MEDS: NIFEdipine XL 30 MG TAB PO SCH (10:38)
[2021-04-30] MEDS: Labetalol HCl 100 MG TAB PO SCH ×2 (10:38→20:06)
[2021-04-30] MEDS: Lidocaine 5% Patch TD SCH (15:41)
[2021-04-30] MEDS: Enoxaparin Sodium 40 MG/0.4 ML SYRINGE SC SCH (20:07)
[2021-04-30] MEDS: Atorvastatin Calcium 40 MG TAB PO SCH (20:07)
[2021-05-01 07:27] LABS: Anion Gap 14 mmol/L (10-20); BUN (Urea Nitrogen) 16 mg/dL (8.4-25.7); Calc. Creatinine Clearance 76 mL/min (70-130); Calcium 9.2 mg/dL (7.8-10.44); Carbon Dioxide 36 mmol/L (23-31); Chloride 97 mmol/L (98-107); Glucose 94 mg/dL (83-110); Potassium 4.4 mmol/L (3.5-5.1); Sodium 143 mmol/L (136-145)
[2021-05-01 07:32] LABS: Hemoglobin 10.8 g/dL (14.0-18.0); Mean Corpuscular HGB CONC 29.4 g/dL (32.0-36.0); Mean Corpuscular Hemoglobin 27.3 pg (27.0-31.0); Platelet Count 157 thou/uL (130-400); Red Blood Cell (RBC) Count 3.95 mill/uL (4.70-6.10); White Blood Cell (WBC) Count 4.4 thou/uL (4.8-10.8)
[2021-05-01 07:47] LABS: #Eosinphils 0.1 thou/uL (0.0-0.7); #Lymphocytes 1.6 thou/uL (1.20-3.40); #Monocytes 0.6 thou/uL (0.11-0.59); #Neutrophils 2.1 thou/uL (1.40-6.50); %Basophils 0.4 % (0.0-1.0); %Eosinophils 1.4 % (0.0-10.0); %Lymphocytes 35.9 % (21.0-51.0); %Monocytes 13.8 % (0.0-10.0); %Neutrophils 48.5 % (42.0-75.0); Hypochromia SLIGHT = 6-15 cells (100X) (0-5/hpf); MDiff Complete? YES; Ovalocytes SLIGHT = 2-5 cells (100X) (0-1/hpf); Platelet Morphology Comment Appears Adequate; Polychromasia SLIGHT = 2-3 cells (100X) (0-2/hpf)
[2021-05-01] MEDS: predniSONE 5 MG TAB PO SCH (10:12)
[2021-05-01] MEDS: Calcium Carbonate 600 MG + Vit D TAB PO SCH ×2 (10:13→19:47)
[2021-05-01] MEDS: Ciprofloxacin 500 MG TAB PO SCH ×2 (10:13→19:46)
[2021-05-01] MEDS: Furosemide 40 MG TAB PO SCH (10:14)
[2021-05-01] MEDS: Labetalol HCl 100 MG TAB PO SCH ×2 (10:14→19:46)
[2021-05-01] MEDS: metroNIDAZOLE 500 MG TAB PO SCH ×3 (10:15→19:47)
[2021-05-01] MEDS: cycloSPORINE, Modified 25 MG CAP PO SCH ×2 (10:15→19:47)
[2021-05-01] MEDS: Finasteride 5 MG TAB PO SCH (10:17)
[2021-05-01] MEDS: NIFEdipine XL 30 MG TAB PO SCH (10:17)
[2021-05-01] MEDS: Tamsulosin HCl 0.4 MG CAP PO SCH (10:17)
[2021-05-01] MEDS: Metamucil PACK PO SCH (10:19)
[2021-05-01] MEDS: Lidocaine 5% Patch TD SCH (12:46)
[2021-05-01] MEDS: Atorvastatin Calcium 40 MG TAB PO SCH (19:47)
[2021-05-01] MEDS: Enoxaparin Sodium 40 MG/0.4 ML SYRINGE SC SCH (21:15)
[2021-05-02] MEDS: Acetaminophen 500 MG TAB PO PRN (04:37)
[2021-05-02 06:09] LABS: #Eosinphils 0.1 thou/uL (0.0-0.7); #Lymphocytes 1.5 thou/uL (1.20-3.40); #Monocytes 0.6 thou/uL (0.11-0.59); %Basophils 0.4 % (0.0-1.0); %Eosinophils 1.5 % (0.0-10.0); %Lymphocytes 36.2 % (21.0-51.0); %Monocytes 13.7 % (0.0-10.0); %Neutrophils 48.1 % (42.0-75.0); Hemoglobin 10.5 g/dL (14.0-18.0); Mean Corpuscular Hemoglobin 27.2 pg (27.0-31.0); Mean Corpuscular Volume 93.8 fL (78.0-98.0); Mean Platelet Volume 7.9 fL (7.4-10.4); Platelet Count 156 thou/uL (130-400); RBC Distribution Width 14.9 % (11.5-14.5); Red Blood Cell (RBC) Count 3.85 mill/uL (4.70-6.10); White Blood Cell (WBC) Count 4.2 thou/uL (4.8-10.8)
[2021-05-02 06:14] LABS: Anion Gap 13 mmol/L (10-20); BUN (Urea Nitrogen) 19 mg/dL (8.4-25.7); Calc. Creatinine Clearance 76 mL/min (70-130); Calcium 9.1 mg/dL (7.8-10.44); Carbon Dioxide 34 mmol/L (23-31); Chloride 97 mmol/L (98-107); Glucose 117 mg/dL (83-110); Potassium 3.9 mmol/L (3.5-5.1); Sodium 140 mmol/L (136-145)
[2021-05-02] MEDS: Furosemide 40 MG TAB PO SCH (08:47)
[2021-05-02] MEDS: Labetalol HCl 100 MG TAB PO SCH ×2 (08:47→20:23)
[2021-05-02] MEDS: Finasteride 5 MG TAB PO SCH (08:47)
[2021-05-02] MEDS: metroNIDAZOLE 500 MG TAB PO SCH ×3 (08:47→20:22)
[2021-05-02] MEDS: Calcium Carbonate 600 MG + Vit D TAB PO SCH (08:47)
[2021-05-02] MEDS: Ciprofloxacin 500 MG TAB PO SCH ×2 (08:48→20:22)
[2021-05-02] MEDS: predniSONE 5 MG TAB PO SCH (08:48)
[2021-05-02] MEDS: Tamsulosin HCl 0.4 MG CAP PO SCH (08:48)
[2021-05-02] MEDS: Metamucil PACK PO SCH (08:49)
[2021-05-02] MEDS: NIFEdipine XL 30 MG TAB PO SCH (09:47)
[2021-05-02 10:24] LABS: SARS-CoV-2 PCR by NAA Not Detected (NotDetected)
[2021-05-02] MEDS: Lidocaine 5% Patch TD SCH (14:44)
[2021-05-02] MEDS: cycloSPORINE, Modified 25 MG CAP PO SCH ×2 (17:43→20:23)
[2021-05-02] MEDS: Atorvastatin Calcium 40 MG TAB PO SCH (20:22)
[2021-05-02] MEDS: Enoxaparin Sodium 40 MG/0.4 ML SYRINGE SC SCH (20:24)
[2021-05-03 06:03] LABS: BUN (Urea Nitrogen) 20 mg/dL (8.4-25.7); Calc. Creatinine Clearance 77 mL/min (70-130); Calcium 8.7 mg/dL (7.8-10.44); Glucose 115 mg/dL (83-110)
[2021-05-03 06:05] LABS: Hemoglobin 9.8 g/dL (14.0-18.0); Mean Corpuscular HGB CONC 30.5 g/dL (32.0-36.0); Mean Corpuscular Hemoglobin 28.6 pg (27.0-31.0); Mean Corpuscular Volume 93.6 fL (78.0-98.0); Platelet Count 160 thou/uL (130-400); RBC Distribution Width 14.8 % (11.5-14.5); Red Blood Cell (RBC) Count 3.42 mill/uL (4.70-6.10); White Blood Cell (WBC) Count 4.5 thou/uL (4.8-10.8)
[2021-05-03 06:12] LABS: Anion Gap 10 mmol/L (10-20); Carbon Dioxide 37 mmol/L (23-31); Chloride 98 mmol/L (98-107); Sodium 141 mmol/L (136-145)
[2021-05-03] MEDS: Metamucil PACK PO SCH (10:42)
[2021-05-03] MEDS: NIFEdipine XL 30 MG TAB PO SCH (10:42)
[2021-05-03] MEDS: metroNIDAZOLE 500 MG TAB PO SCH ×3 (10:42→20:24)
[2021-05-03] MEDS: Furosemide 40 MG TAB PO SCH (10:43)
[2021-05-03] MEDS: Labetalol HCl 100 MG TAB PO SCH ×2 (10:43→20:25)
[2021-05-03] MEDS: Tamsulosin HCl 0.4 MG CAP PO SCH (10:43)
[2021-05-03] MEDS: Ciprofloxacin 500 MG TAB PO SCH ×2 (10:43→20:25)
[2021-05-03] MEDS: cycloSPORINE, Modified 25 MG CAP PO SCH ×2 (10:43→20:24)
[2021-05-03] MEDS: Cholecalciferol (Vitamin D3) 400 UNITS TAB PO SCH (10:43)
[2021-05-03] MEDS: Finasteride 5 MG TAB PO SCH (10:43)
[2021-05-03] MEDS: predniSONE 5 MG TAB PO SCH (10:43)
[2021-05-03 11:57] LABS: Band 5 % (5-11); Eosinophils 1 % (0-10); Hypochromia SLIGHT = 6-15 cells (100X) (0-5/hpf); Lymphocytes 35 % (21-51); MDiff Complete? YES; Monocytes 19 % (0-10); Neutrophil 40 % (42-75); Platelet Morphology Comment Appears Adequate; Polychromasia SLIGHT = 2-3 cells (100X) (0-2/hpf)
[2021-05-03] MEDS ORDERED: NIFEdipine XL 30 MG TAB PO SCH (13:15)
[2021-05-03] MEDS: Lidocaine 5% Patch TD SCH (14:05)
[2021-05-03 15:14] VITALS: BMI 31.1
[2021-05-03] MEDS: Atorvastatin Calcium 40 MG TAB PO SCH (20:24)
[2021-05-03] MEDS: Acetaminophen 500 MG TAB PO PRN (20:25)
[2021-05-03] MEDS: Enoxaparin Sodium 40 MG/0.4 ML SYRINGE SC SCH (20:25)
[2021-05-04 07:00] LABS: #Eosinphils 0.1 thou/uL (0.0-0.7); #Lymphocytes 1.9 thou/uL (1.20-3.40); #Monocytes 0.7 thou/uL (0.11-0.59); #Neutrophils 1.8 thou/uL (1.40-6.50); %Basophils 0.2 % (0.0-1.0); %Eosinophils 1.6 % (0.0-10.0); %Lymphocytes 42.6 % (21.0-51.0); %Monocytes 14.6 % (0.0-10.0); Hemoglobin 10.9 g/dL (14.0-18.0); Mean Corpuscular HGB CONC 30.8 g/dL (32.0-36.0); Mean Corpuscular Hemoglobin 28.6 pg (27.0-31.0); Mean Corpuscular Volume 92.9 fL (78.0-98.0); Mean Platelet Volume 8.1 fL (7.4-10.4); Platelet Count 174 thou/uL (130-400); RBC Distribution Width 14.9 % (11.5-14.5); White Blood Cell (WBC) Count 4.5 thou/uL (4.8-10.8)
[2021-05-04 07:23] LABS: Anion Gap 13 mmol/L (10-20); BUN (Urea Nitrogen) 18 mg/dL (8.4-25.7); Calc. Creatinine Clearance 72 mL/min (70-130); Calcium 8.9 mg/dL (7.8-10.44); Carbon Dioxide 35 mmol/L (23-31); Chloride 98 mmol/L (98-107); Glucose 97 mg/dL (83-110); Potassium 4.1 mmol/L (3.5-5.1); Sodium 142 mmol/L (136-145)
[2021-05-04] MEDS: Cholecalciferol (Vitamin D3) 400 UNITS TAB PO SCH (08:41)
[2021-05-04] MEDS: Tamsulosin HCl 0.4 MG CAP PO SCH (08:41)
[2021-05-04] MEDS: metroNIDAZOLE 500 MG TAB PO SCH (08:41)
[2021-05-04] MEDS: predniSONE 5 MG TAB PO SCH (08:41)
[2021-05-04] MEDS: Metamucil PACK PO SCH (08:41)
[2021-05-04] MEDS: cycloSPORINE, Modified 25 MG CAP PO SCH (08:41)
[2021-05-04] MEDS: Furosemide 40 MG TAB PO SCH (08:41)
[2021-05-04] MEDS: Ciprofloxacin 500 MG TAB PO SCH (08:41)
[2021-05-04] MEDS: Labetalol HCl 100 MG TAB PO SCH (08:42)
[2021-05-04] MEDS: Finasteride 5 MG TAB PO SCH (08:42)
[2021-05-04] MEDS: Acetaminophen 500 MG TAB PO PRN (08:55)
[2021-05-04] MEDS ORDERED: NIFEdipine XL 60 MG TAB PO SCH (09:00)
[2021-05-04 12:26] VITALS: BP 105/65; TEMP 97.3
[2021-05-04] MEDS: Lidocaine 5% Patch TD SCH (13:52)
== END 2021-05-04 13:00 | DRG 871 ==
LOC: ERS 17:20 → ERHOLD 20:29 → CCU 04-25 02:35 → IMCU/EMU 04-26 03:02 → SURG A 04-27 22:42
PROVIDERS: ADMIT Family Medicine; ATTEND Family Medicine
PROC: 5A09357 Assistance with Respiratory Ventilation, Less than 24 Consecutive Hours, Continuous Positive Airway Pressure (ICD-10-PCS; principal; 2021-04-24)
PROC: 3E03329 Introduction of Other Anti-infective into Peripheral Vein, Percutaneous Approach (ICD-10-PCS; 2021-04-24)
DX: A41.9 Sepsis, unspecified organism (principal); J96.21 Acute and chronic respiratory failure with hypoxia; J96.22 Acute and chronic respiratory failure with hypercapnia; G93.41 Metabolic encephalopathy; Z94.0 Kidney transplant status; K57.32 Diverticulitis of large intestine without perforation or abscess without bleeding; J90 Pleural effusion, not elsewhere classified; J98.11 Atelectasis; E87.4 Mixed disorder of acid-base balance; Z20.822 Contact with and (suspected) exposure to COVID-19; T45.1X5A Adverse effect of antineoplastic and immunosuppressive drugs, initial encounter; E78.5 Hyperlipidemia, unspecified; Z96.653 Presence of artificial knee joint, bilateral; E89.0 Postprocedural hypothyroidism; M25.511 Pain in right shoulder; N18.9 Chronic kidney disease, unspecified; D63.1 Anemia in chronic kidney disease; I12.9 Hypertensive chronic kidney disease with stage 1 through stage 4 chronic kidney disease, or unspecified chronic kidney disease; G14 Postpolio syndrome; Z28.21 Immunization not carried out because of patient refusal; Z87.01 Personal history of pneumonia (recurrent); Z88.0 Allergy status to penicillin; Z88.8 Allergy status to other drugs, medicaments and biological substances; Z79.899 Other long term (current) drug therapy; Z79.52 Long term (current) use of systemic steroids; Z86.718 Personal history of other venous thrombosis and embolism; Z86.711 Personal history of pulmonary embolism; Z86.19 Personal history of other infectious and parasitic diseases; Z98.42 Cataract extraction status, left eye; Z98.41 Cataract extraction status, right eye; Z90.49 Acquired absence of other specified parts of digestive tract; Z98.49 Cataract extraction status, unspecified eye
CPT/HCPCS: 36415; 36416; 36600; 71045; 71275; 74176; 80048; 80053; 80158; 80202; 80306; 81001; 82550; 82553; 82805; 83519; 83605; 83690; 83880; 84145; 84439; 84481; 84484; 85007; 85025; 85027; 85379; 87040; 87086; 87804; 93005; 94660; 96365; 96367; 96375; J0692; J1650; J1940; J1956; J2405; J2543; J3370; J3490; J7120; J7510; J7512; J7515; J7518; U0002; U0003; U0005

== ENCOUNTER 2021-12-31 15:54 | Emergency (ER) | payer OTHER ==
[2021-12-31 18:28] LABS: #Lymphocytes 1.3 thou/uL (1.20-3.40); #Monocytes 0.5 thou/uL (0.11-0.59); #Neutrophils 4.2 thou/uL (1.40-6.50); %Basophils 0.4 % (0.0-1.0); %Eosinophils 0.3 % (0.0-10.0); %Lymphocytes 22.1 % (21.0-51.0); %Monocytes 7.6 % (0.0-10.0); %Neutrophils 69.5 % (42.0-75.0); Hemoglobin 12.7 g/dL (14.0-18.0); Mean Corpuscular HGB CONC 31.4 g/dL (32.0-36.0); Mean Corpuscular Volume 92.4 fL (78.0-98.0); Mean Platelet Volume 8.1 fL (7.4-10.4); Platelet Count 150 thou/uL (130-400); RBC Distribution Width 13.2 % (11.5-14.5); Red Blood Cell (RBC) Count 4.39 mill/uL (4.70-6.10)
[2021-12-31 18:49] LABS: ALT (SGPT) 10 U/L (8-55); AST (SGOT) 17 U/L (5-34); Albumin 4.4 g/dL (3.4-4.8); Alkaline Phosphatase 73 U/L (40-110); Anion Gap 15 mmol/L (10-20); BUN (Urea Nitrogen) 22 mg/dL (8.4-25.7); Bilirubin, Total 0.8 mg/dL (0.2-1.2); Calc. Creatinine Clearance 0 mL/min (70-130); Calcium 9.5 mg/dL (7.8-10.44); Carbon Dioxide 27 mmol/L (23-31); Chloride 102 mmol/L (98-107); Estimated GFR 53; Globulin 3.1 g/dL (2.4-3.5); Glucose 130 mg/dL (83-110); Potassium 3.9 mmol/L (3.5-5.1); Protein, Total 7.5 g/dL (5.8-8.1); Sodium 140 mmol/L (136-145)
[2021-12-31] MEDS ORDERED: Lidocaine 1% PF 5 ML VIAL ONE (21:13)
[2021-12-31] MEDS ORDERED: HYDROcodone/Acetaminophen 5/325 mg Tablet ONE (21:18)
[2021-12-31 23:20] LABS: RBC Count-Automated (BF) 310251 /cu.mm; WBC/Nucleated-Auto (BF) 981 /cu.mm
[2021-12-31 23:27] LABS: BF Color Red; Body Fluid Source Synovial Fluid; Clarity Cloudy/Turbid (Clear); Tube # 1
[2021-12-31 23:28] LABS: BF Segmented Neutrophils 91 %; Cell Count Non Hematic 3 %; Lymphocytes 6 %
== END 2021-12-31 22:15 | disposition home or self-care (01) ==
LOC: ERS 15:54
DX: S80.01XA Contusion of right knee, initial encounter (principal); I10 Essential (primary) hypertension; E78.00 Pure hypercholesterolemia, unspecified; Z79.899 Other long term (current) drug therapy; W19.XXXA Unspecified fall, initial encounter
CPT/HCPCS: 20610; 36415; 80053; 83605; 83615; 85025; 85060; 86140; 87040; 89051

== ENCOUNTER 2022-07-04 13:22 | Observation (INO) | payer OTHER, MEDICAID ==
[2022-07-04 14:08] LABS: #Lymphocytes 1.9 thou/uL (1.20-3.40); #Monocytes 0.7 thou/uL (0.11-0.59); #Neutrophils 2.9 thou/uL (1.40-6.50); %Basophils 0.2 % (0.0-1.0); %Eosinophils 0.5 % (0.0-10.0); %Lymphocytes 34.6 % (21.0-51.0); %Monocytes 12.8 % (0.0-10.0); %Neutrophils 52.1 % (42.0-75.0); Hemoglobin 10.8 g/dL (14.0-18.0); Mean Corpuscular HGB CONC 30.7 g/dL (32.0-36.0); Mean Corpuscular Hemoglobin 27.7 pg (27.0-31.0); Mean Corpuscular Volume 90.3 fl (78.0-98.0); Mean Platelet Volume 9.2 fL (7.4-10.4); Platelet Count 158 10x3/uL (130-400); RBC Distribution Width 15.1 % (11.5-14.5); Red Blood Cell (RBC) Count 3.91 mill/uL (4.70-6.10); White Blood Cell (WBC) Count 5.5 10x3/uL (4.8-10.8)
[2022-07-04 14:43] LABS: ALT (SGPT) Less than 7 U/L (8-55); AST (SGOT) 12 U/L (5-34); Albumin 3.4 g/dL (3.4-4.8); Alkaline Phosphatase 72 U/L (40-110); Anion Gap 12 mmol/L (10-20); BUN (Urea Nitrogen) 16 mg/dL (8.4-25.7); Bilirubin, Total 0.4 mg/dL (0.2-1.2); Calc. Creatinine Clearance 0 mL/min (70-130); Calcium 8.7 mg/dL (7.8-10.44); Carbon Dioxide 28 mmol/L (23-31); Chloride 105 mmol/L (98-107); Estimated GFR 80; Globulin 3.3 g/dL (2.4-3.5); Glucose 105 mg/dL (83-110); Potassium 3.8 mmol/L (3.5-5.1); Protein, Total 6.7 g/dL (5.8-8.1); Sodium 141 mmol/L (136-145)
[2022-07-04] MEDS ORDERED: Aspirin Chewable 81 MG TAB ONE (14:43)
[2022-07-04] MEDS ORDERED: FENTANYL 50 MCG/ML 1 ML VIAL ONE (14:43)
[2022-07-04] MEDS ORDERED: Nitroglycerin 2% Ointment 1 INCH/1 GM Packet ONE (14:43)
[2022-07-04 14:53] LABS: PTT 23.9 sec (22.9-36.1); Prothrombin Time 13.9 sec (12.0-14.7)
[2022-07-04] MEDS ORDERED: Lidocaine 1% PF 5 ML VIAL ONE (15:01)
[2022-07-04 15:05] LABS: CKMB 5.5 ng/mL (0-6.6)
[2022-07-04 15:19] LABS: CK (CPK) 385 U/L (30-200); Lipase 36 U/L (8-78)
[2022-07-04] MEDS ORDERED: Acetaminophen 500 MG TAB ONE (17:35)
[2022-07-04] MEDS ORDERED: Acetaminophen 325 MG TAB PO PRN (18:32)
[2022-07-04] MEDS ORDERED: Ondansetron ODT 4 MG TAB PO PRN (18:32)
[2022-07-04] MEDS ORDERED: Nitroglycerin 0.4 MG TAB (25 Tab Bottle) SL PRN (18:35)
[2022-07-04 19:27] LABS: Hemoglobin A1c 5.6 % (4.0-6.0)
[2022-07-04 20:14] VITALS: BMI 29.4
[2022-07-04] MEDS ORDERED: Vancomycin 1.5 GRAM/300 ML BAG 1.5 GM in Premix Bag 1 BAG IVPB SCH (20:15)
[2022-07-04 20:18] LABS: Magnesium 1.6 mg/dL (1.6-2.6)
[2022-07-04] MEDS ORDERED: Atorvastatin Calcium 40 MG TAB PO SCH (21:00)
[2022-07-04] MEDS ORDERED: Cefepime 2 GM in Sodium Chloride 0.9% 100 ML IVPB SCH (21:00)
[2022-07-04] MEDS ORDERED: Labetalol HCl 100 MG TAB PO SCH (21:00)
[2022-07-04] MEDS ORDERED: Magnesium 2 GM/50 ML(in water) 2 GM in Premix Bag 1 BAG IVPB SCH (21:45)
[2022-07-04] MEDS: Cefepime 2 GM in Sodium Chloride 0.9% 100 ML IVPB SCH (22:16)
[2022-07-04 22:18] LABS: Troponin I 0.084 ng/mL (< 0.028)
[2022-07-04 22:26] LABS: BF Color Red; Body Fluid Source Synovial Fluid; Clarity Cloudy/Turbid (Clear); Tube # EDTA
[2022-07-04 23:26] LABS: Cell Count Non Hematic 3 %; Eosinophils 1 %; Lymphocytes 46 %
[2022-07-04 23:27] LABS: Segmented Neutrophils 50 %
[2022-07-05] MEDS: Cefepime 2 GM in Sodium Chloride 0.9% 100 ML IVPB SCH ×2 (05:52→14:54)
[2022-07-05] MEDS ORDERED: Vancomycin 1 GM in Premix Bag 1 BAG IVPB SCH (08:00)
[2022-07-05] MEDS ORDERED: Tamsulosin HCl 0.4 MG CAP PO SCH (09:00)
[2022-07-05] MEDS ORDERED: Mycophenolate DR 180 MG TAB PO SCH (09:00)
[2022-07-05] MEDS ORDERED: Finasteride 5 MG TAB PO SCH (09:00)
[2022-07-05] MEDS ORDERED: Cholecalciferol (Vitamin D3) 400 UNITS TAB PO SCH (09:00)
[2022-07-05] MEDS ORDERED: Furosemide 20 MG TAB PO SCH (09:00)
[2022-07-05] MEDS ORDERED: cycloSPORINE, Modified 25 MG CAP PO SCH (09:00)
[2022-07-05] MEDS ORDERED: predniSONE 5 MG TAB PO SCH (09:00)
[2022-07-05] MEDS ORDERED: ADENOSINE 60 MG/20 ML SDV ONE (09:57)
[2022-07-05 10:12] LABS: Anion Gap 13 mmol/L (10-20); BUN (Urea Nitrogen) 18 mg/dL (8.4-25.7); Calc. Creatinine Clearance 96 mL/min (70-130); Calcium 8.6 mg/dL (7.8-10.44); Carbon Dioxide 24 mmol/L (23-31); Cardiac Risk 2.8 (Less than 4.5); Chloride 109 mmol/L (98-107); Cholesterol 146 mg/dl (< 200 Desired); Estimated GFR 86; Glucose 107 mg/dL (83-110); HDL Cholesterol 52 mg/dL (>60 Neg Risk); LDL Cholesterol, Calculated 80 mg/dL; Sodium 142 mmol/L (136-145); Triglycerides 70 mg/dL (Less than 150)
[2022-07-05 10:55] LABS: #Eosinphils 0.1 thou/uL (0.0-0.7); #Lymphocytes 1.6 thou/uL (1.20-3.40); #Monocytes 0.6 thou/uL (0.11-0.59); #Neutrophils 2.3 thou/uL (1.40-6.50); %Basophils 0.3 % (0.0-1.0); %Eosinophils 1.2 % (0.0-10.0); %Lymphocytes 34.5 % (21.0-51.0); %Monocytes 13.7 % (0.0-10.0); %Neutrophils 50.4 % (42.0-75.0); Hemoglobin 9.9 g/dL (14.0-18.0); Mean Corpuscular HGB CONC 29.9 g/dL (32.0-36.0); Mean Corpuscular Hemoglobin 27.5 pg (27.0-31.0); Mean Corpuscular Volume 91.8 fl (78.0-98.0); Mean Platelet Volume 9.1 fL (7.4-10.4); Platelet Count 164 10x3/uL (130-400); RBC Distribution Width 15.2 % (11.5-14.5); Red Blood Cell (RBC) Count 3.59 mill/uL (4.70-6.10); White Blood Cell (WBC) Count 4.6 10x3/uL (4.8-10.8)
[2022-07-05 15:55] VITALS: TEMP 98.4
[2022-07-05 19:38] VITALS: BP 179/86
== END 2022-07-05 20:21 | disposition home or self-care (01) ==
LOC: ERS 13:22 → 2SW 17:11
PROVIDERS: ADMIT Family Medicine; ATTEND Family Medicine
DX: R07.89 Other chest pain (principal); I12.9 Hypertensive chronic kidney disease with stage 1 through stage 4 chronic kidney disease, or unspecified chronic kidney disease; N18.30 Chronic kidney disease, stage 3 unspecified; D63.1 Anemia in chronic kidney disease; E78.5 Hyperlipidemia, unspecified; I73.9 Peripheral vascular disease, unspecified; I08.0 Rheumatic disorders of both mitral and aortic valves; G89.29 Other chronic pain; M25.569 Pain in unspecified knee; M62.838 Other muscle spasm; G14 Postpolio syndrome; Z96.653 Presence of artificial knee joint, bilateral; Z94.0 Kidney transplant status; Z88.2 Allergy status to sulfonamides; Z88.8 Allergy status to other drugs, medicaments and biological substances; Z79.52 Long term (current) use of systemic steroids; Z79.899 Other long term (current) drug therapy
CPT/HCPCS: 71045; 73564; 78452; 80048; 80053; 80061; 80158; 82550; 82553; 83036; 83690; 83735; 83880; 84443; 84484 ×2; 85025 ×2; 85610; 85730; 87040; 87070; 87205; 89051; 89060; 93005; 93017; 93306; 93971; 96372; 96374; 96375; 96376; 99285; A9500; G0378 ×3; J3010; J3370 ×2; 36415; J0153; J0692; J1650; J3475; J3490; J7512; J7515; J7518

== ENCOUNTER 2022-07-29 12:26 | Emergency (ER) | payer OTHER, MEDICAID ==
[2022-07-29] MEDS ORDERED: Bacitracin 1 PK ONE (14:40)
[2022-07-29] MEDS ORDERED: Ketorolac Tromethamine 30 MG/ML VIAL ONE (14:40)
[2022-07-29] MEDS ORDERED: Acetaminophen 500 MG TAB ONE (14:40)
== END 2022-07-29 18:52 ==
LOC: ERS 12:26
DX: S80.12XA Contusion of left lower leg, initial encounter (principal); S80.01XA Contusion of right knee, initial encounter; I10 Essential (primary) hypertension; E78.00 Pure hypercholesterolemia, unspecified; W22.8XXA Striking against or struck by other objects, initial encounter
CPT/HCPCS: 96372; J1885

== ENCOUNTER 2022-08-22 19:08 | Emergency (ER) | payer OTHER ==
[2022-08-22] MEDS ORDERED: Boostrix 0.5 ML (Tdap) VIAL (>/=7 yrs of age) ONE (20:22)
== END 2022-08-22 20:55 | disposition home or self-care (01) ==
LOC: ERS 19:08
DX: S81.812A Laceration without foreign body, left lower leg, initial encounter (principal); I10 Essential (primary) hypertension; I48.91 Unspecified atrial fibrillation; G14 Postpolio syndrome; W22.8XXA Striking against or struck by other objects, initial encounter; Y92.59 Other trade areas as the place of occurrence of the external cause; Z23 Encounter for immunization; Z79.899 Other long term (current) drug therapy
CPT/HCPCS: 90471; 90715

== ENCOUNTER 2022-11-26 09:01 | Inpatient (IN) | payer OTHER, MEDICAID ==
[2022-11-26 09:48] LABS: #Monocytes 1.2 thou/uL (0.11-0.59); %Basophils 0.1 % (0.0-1.0); %Lymphocytes 7.7 % (21.0-51.0); %Monocytes 10.9 % (0.0-10.0); %Neutrophils 80.1 % (42.0-75.0); Hematocrit 37.2 % (42.0-52.0); Hemoglobin 10.9 g/dL (14.0-18.0); Mean Corpuscular HGB CONC 29.3 g/dL (32.0-36.0); Mean Corpuscular Hemoglobin 27.3 pg (27.0-31.0); Mean Corpuscular Volume 93.2 fl (78.0-98.0); RBC Distribution Width 16.4 % (11.5-14.5); Red Blood Cell (RBC) Count 3.99 mill/uL (4.70-6.10); White Blood Cell (WBC) Count 11.2 10x3/uL (4.8-10.8)
[2022-11-26 09:56] LABS: Platelet Count 16 10x3/uL (130-400)
[2022-11-26 10:05] LABS: INR-International Normal Ratio 1.3; Prothrombin Time 16.4 sec (12.0-14.7)
[2022-11-26] MEDS ORDERED: Cefepime 2 GM VIAL ONE (10:13)
[2022-11-26 10:14] LABS: PTT 22.2 sec (22.9-36.1)
[2022-11-26 10:19] LABS: Bacteria/HPF 2+ HPF (None Seen); Bilirubin Negative (Negative); Blood, Urine 3+ (Negative); CAUTI Indications for Culture Dysuria,urgency,freq; Glucose, Urine (Dipstick) Normal (Negative); Ketone, Urine Negative (Negative); Leukocyte 250 Leu/uL (Negative); Nitrite Negative (Negative); Protein, Urine (Dipstick) 300 mg/dL (Neg-Trace); RBC/HPF Greater than 50 HPF (0-3); Specific Gravity, Urine 1.016 (1.002-1.036); Squamous Epithelial 0-3 HPF (0-3); Urobilinogen Normal mg/dL (Less than 2); WBC/HPF Greater than 50 HPF (0-3)
[2022-11-26 10:21] LABS: Clarity Cloudy (Clear)
[2022-11-26 10:23] LABS: Urine Culture Reflex Yes Yes
[2022-11-26 10:37] LABS: Anion Gap 15 mmol/L (10-20); BUN (Urea Nitrogen) 19 mg/dL (8.4-25.7); Calc. Creatinine Clearance 0 mL/min (70-130); Calcium 8.8 mg/dL (7.6-10.4); Carbon Dioxide 23 mmol/L (23-31); Chloride 102 mmol/L (98-107); Estimated GFR 61; Glucose 112 mg/dL (83-110); Potassium 4.3 mmol/L (3.5-5.1); Sodium 136 mmol/L (136-145)
[2022-11-26 10:38] LABS: ALT (SGPT) 12 U/L (8-55); AST (SGOT) 27 U/L (5-34); Albumin 3.7 g/dL (3.4-4.8); Alkaline Phosphatase 77 U/L (40-110); Bilirubin, Total 0.9 mg/dL (0.2-1.2); Globulin 3.2 g/dL (2.4-3.5); Lipase 33 U/L (8-78); Protein, Total 6.9 g/dL (5.8-8.1)
[2022-11-26 10:46] LABS: CellaVision Operator ID lab.dlt
[2022-11-26 10:48] LABS: Platelet Adequacy Comment Platelets Decreased
[2022-11-26 10:49] LABS: Troponin I 0.164 ng/mL (< 0.028)
[2022-11-26] MEDS ORDERED: Vancomycin 1 GM/200 ML (FROZEN) BAG ONE (11:26)
[2022-11-26] MEDS ORDERED: Furosemide 40 MG/4 ML VIAL ONE (11:26)
[2022-11-26 11:49] LABS: Troponin I 0.174 ng/mL (< 0.028)
[2022-11-26] MEDS ORDERED: Ondansetron PF 4 MG/2 ML Vial ONE (13:08)
[2022-11-26] MEDS ORDERED: Ondansetron PF 4 MG/2 ML Vial IVP PRN (13:15)
[2022-11-26] MEDS ORDERED: Ondansetron ODT 4 MG TAB SL PRN (13:15)
[2022-11-26] MEDS ORDERED: Acetaminophen 325 MG TAB ONE (14:13)
[2022-11-26 15:11] LABS: Troponin I 0.181 ng/mL (< 0.028)
[2022-11-26] MEDS ORDERED: Vancomycin HCl 750 MG in Sodium Chloride 0.9% 250 ML 250 ML IVPB SCH (16:30)
[2022-11-26] MEDS: Acetaminophen 325 MG TAB PO PRN ×2 (16:44→20:17)
[2022-11-26 18:03] LABS: SARS-CoV-2 NAA Rapid Test Not Detected (NotDetected)
[2022-11-26] MEDS ORDERED: Furosemide 20 MG/2 ML VIAL SLOW IVP SCH (19:00)
[2022-11-26 19:15] LABS: Troponin I 0.207 ng/mL (< 0.028)
[2022-11-26] MEDS: Labetalol HCl 100 MG TAB PO SCH (20:16)
[2022-11-26] MEDS: Calcium Carbonate + Vit D 250 MG TAB PO SCH (20:17)
[2022-11-26] MEDS: cycloSPORINE, Modified 25 MG CAP PO SCH (20:17)
[2022-11-26] MEDS: Atorvastatin Calcium 10 MG TAB PO SCH (20:17)
[2022-11-26] MEDS: Mycophenolate DR 180 MG TAB PO SCH (20:17)
[2022-11-26] MEDS ORDERED: VANCOMYCIN IVPB SCH (21:00)
[2022-11-26 21:15] LABS: Troponin I 0.223 ng/mL (< 0.028)
[2022-11-26] MEDS ORDERED: Polyethylene Glycol 3350 17 GM Packet PO PRN (21:45)
[2022-11-26 23:31] LABS: Troponin I 0.233 ng/mL (< 0.028)
[2022-11-27] MEDS ORDERED: Vancomycin HCl 750 MG in Sodium Chloride 0.9% 250 ML 250 ML IVPB SCH ×2 (04:00→18:15)
[2022-11-27 04:55] LABS: Hematocrit 39.9 % (42.0-52.0); Hemoglobin 11.6 g/dL (14.0-18.0); Mean Corpuscular HGB CONC 29.1 g/dL (32.0-36.0); Mean Corpuscular Hemoglobin 27.5 pg (27.0-31.0); Mean Corpuscular Volume 94.5 fl (78.0-98.0); Mean Platelet Volume 11.5 fL (7.4-10.4); Platelet Count 107 10x3/uL (130-400); RBC Distribution Width 16.7 % (11.5-14.5); Red Blood Cell (RBC) Count 4.22 mill/uL (4.70-6.10); White Blood Cell (WBC) Count 13.6 10x3/uL (4.8-10.8)
[2022-11-27] MEDS: Acetaminophen 325 MG TAB PO PRN ×3 (05:05→19:51)
[2022-11-27 05:44] LABS: Delete Auto Diff?? YES; Manual Diff?? YES
[2022-11-27] MEDS ORDERED: cefTRIAXone\\ROCEPHIN 1 GM in Sodium Chloride 0.9% 100 ML IVPB SCH (06:00)
[2022-11-27 06:32] LABS: Anisocytosis SLIGHT = 6-15 cells HPF (0-5); Band 29 % (5-11); Burr Cells SLIGHT = 2-5 cells HPF (0-1); CellaVision Operator ID LAB.JMM; Elliptocytes SLIGHT = 2-5 cells HPF (0-1); Lymphocytes 1 % (21-51); Macrocytosis SLIGHT = 6-15 cells HPF (0-5); Monocytes 1 % (0-10); Neutrophil 69 % (42-75); Platelet Adequacy Comment Platelets Decreased; Poikilocytosis SLIGHT = 6-15 cells HPF (0-5); Polychromasia SLIGHT = 2-3 cells HPF (0-2); Smudge Cells 5.1 %; Total Cell Count 99
[2022-11-27 06:36] LABS: ALT (SGPT) 11 U/L (8-55); AST (SGOT) 21 U/L (5-34); Albumin 3.3 g/dL (3.4-4.8); Alkaline Phosphatase 64 U/L (40-110); Anion Gap 16 mmol/L (10-20); BUN (Urea Nitrogen) 27 mg/dL (8.4-25.7); Bilirubin, Total 1.5 mg/dL (0.2-1.2); Calc. Creatinine Clearance 43 mL/min (70-130); Calcium 8.5 mg/dL (7.8-10.44); Carbon Dioxide 24 mmol/L (23-31); Chloride 102 mmol/L (98-107); Estimated GFR 34; Globulin 3.2 g/dL (2.4-3.5); Glucose 68 mg/dL (83-110); Potassium 4.8 mmol/L (3.5-5.1); Protein, Total 6.5 g/dL (5.8-8.1); Sodium 137 mmol/L (136-145)
[2022-11-27] MEDS ORDERED: Lactated Ringer's 1,000 ML IV SCH (08:45)
[2022-11-27] MEDS ORDERED: NIFEdipine XL 60 MG TAB PO SCH (09:00)
[2022-11-27] MEDS ORDERED: Amlodipine 5 MG TAB PO SCH (09:00)
[2022-11-27] MEDS: Cholecalciferol (Vitamin D3) 400 UNITS TAB PO SCH (09:47)
[2022-11-27] MEDS: Cefepime 1 GM in Sodium Chloride 0.9% 100 ML IVPB SCH ×2 (09:47→20:52)
[2022-11-27] MEDS: Tamsulosin HCl 0.4 MG CAP PO SCH (09:47)
[2022-11-27] MEDS: Finasteride 5 MG TAB PO SCH (09:47)
[2022-11-27] MEDS: Mycophenolate DR 180 MG TAB PO SCH ×2 (09:47→20:53)
[2022-11-27] MEDS: predniSONE 5 MG TAB PO SCH (09:47)
[2022-11-27] MEDS: Labetalol HCl 100 MG TAB PO SCH ×2 (09:47→20:53)
[2022-11-27] MEDS: cycloSPORINE, Modified 25 MG CAP PO SCH ×2 (09:48→20:52)
[2022-11-27] MEDS: Calcium Carbonate + Vit D 250 MG TAB PO SCH ×2 (10:18→20:57)
[2022-11-27] MEDS ORDERED: fentaNYL 50 mcg/mL 1 mL Vial SLOW IVP PRN (12:09)
[2022-11-27] MEDS: Atorvastatin Calcium 10 MG TAB PO SCH (20:53)
[2022-11-28 05:32] LABS: #Monocytes 1.2 thou/uL (0.11-0.59); #Neutrophils 7.5 thou/uL (1.40-6.50); %Basophils 0.1 % (0.0-1.0); %Eosinophils 0.2 % (0.0-10.0); %Lymphocytes 8.6 % (21.0-51.0); %Monocytes 12.5 % (0.0-10.0); %Neutrophils 77.6 % (42.0-75.0); Hematocrit 33.6 % (42.0-52.0); Hemoglobin 9.8 g/dL (14.0-18.0); Mean Corpuscular HGB CONC 29.2 g/dL (32.0-36.0); Mean Corpuscular Hemoglobin 27.3 pg (27.0-31.0); Mean Corpuscular Volume 93.6 fl (78.0-98.0); Mean Platelet Volume 10.6 fL (7.4-10.4); Platelet Count 109 10x3/uL (130-400); RBC Distribution Width 16.8 % (11.5-14.5); Red Blood Cell (RBC) Count 3.59 mill/uL (4.70-6.10); White Blood Cell (WBC) Count 9.7 10x3/uL (4.8-10.8)
[2022-11-28 05:49] LABS: Vancomycin, Trough 27.2 ug/mL
[2022-11-28 05:57] LABS: ALT (SGPT) 9 U/L (8-55); AST (SGOT) 17 U/L (5-34); Albumin 3.1 g/dL (3.4-4.8); Alkaline Phosphatase 62 U/L (40-110); Anion Gap 13 mmol/L (10-20); BUN (Urea Nitrogen) 45 mg/dL (8.4-25.7); Bilirubin, Total 0.7 mg/dL (0.2-1.2); Calc. Creatinine Clearance 33 mL/min (70-130); Calcium 8.2 mg/dL (7.8-10.44); Carbon Dioxide 24 mmol/L (23-31); Chloride 102 mmol/L (98-107); Estimated GFR 25; Globulin 3.1 g/dL (2.4-3.5); Glucose 91 mg/dL (83-110); Potassium 4.3 mmol/L (3.5-5.1); Protein, Total 6.2 g/dL (5.8-8.1); Sodium 135 mmol/L (136-145)
[2022-11-28] MEDS ORDERED: Vancomycin HCl 750 MG in Sodium Chloride 0.9% 250 ML 250 ML IVPB SCH ×2 (06:00→06:30)
[2022-11-28] MEDS ORDERED: Lactated Ringer's 1,000 ML IV SCH (08:15)
[2022-11-28] MEDS: Albumin 25% 25 GM/100 ML BOT IVPB SCH ×3 (08:28→21:02)
[2022-11-28] MEDS: Cholecalciferol (Vitamin D3) 400 UNITS TAB PO SCH (08:33)
[2022-11-28] MEDS: Calcium Carbonate + Vit D 250 MG TAB PO SCH ×2 (08:33→21:02)
[2022-11-28] MEDS: Tamsulosin HCl 0.4 MG CAP PO SCH (08:33)
[2022-11-28] MEDS: cycloSPORINE, Modified 25 MG CAP PO SCH ×2 (08:34→21:03)
[2022-11-28] MEDS: Mycophenolate DR 180 MG TAB PO SCH ×2 (08:34→21:02)
[2022-11-28] MEDS: Finasteride 5 MG TAB PO SCH (08:34)
[2022-11-28] MEDS: predniSONE 5 MG TAB PO SCH (08:34)
[2022-11-28] MEDS: Cefepime 1 GM in Sodium Chloride 0.9% 100 ML IVPB SCH (09:34)
[2022-11-28] MEDS: Acetaminophen 325 MG TAB PO PRN (13:16)
[2022-11-28 17:10] LABS: Vancomycin, Trough 22.1 ug/mL
[2022-11-28] MEDS ORDERED: Vancomycin Dose by Levels Sliding Scale (Wt 71-99) FS SCH (18:15)
[2022-11-28] MEDS: Atorvastatin Calcium 10 MG TAB PO SCH (21:02)
[2022-11-29] MEDS: Albumin 25% 25 GM/100 ML BOT IVPB SCH ×4 (02:40→23:32)
[2022-11-29 06:35] LABS: #Neutrophils 5.4 thou/uL (1.40-6.50); %Basophils 0.3 % (0.0-1.0); %Eosinophils 0.4 % (0.0-10.0); %Lymphocytes 11.8 % (21.0-51.0); %Monocytes 13.9 % (0.0-10.0); %Neutrophils 73.1 % (42.0-75.0); Hematocrit 32.2 % (42.0-52.0); Hemoglobin 9.9 g/dL (14.0-18.0); Mean Corpuscular HGB CONC 30.7 g/dL (32.0-36.0); Mean Corpuscular Hemoglobin 27.6 pg (27.0-31.0); Mean Corpuscular Volume 89.7 fl (78.0-98.0); Mean Platelet Volume 10.6 fL (7.4-10.4); Platelet Count 110 10x3/uL (130-400); RBC Distribution Width 16.5 % (11.5-14.5); Red Blood Cell (RBC) Count 3.59 mill/uL (4.70-6.10); White Blood Cell (WBC) Count 7.4 10x3/uL (4.8-10.8)
[2022-11-29 06:57] LABS: Vancomycin, Random 16.9 ug/mL (See Comment)
[2022-11-29 07:01] LABS: ALT (SGPT) Less than 7 U/L (8-55); AST (SGOT) 15 U/L (5-34); Albumin 4.1 g/dL (3.4-4.8); Alkaline Phosphatase 61 U/L (40-110); Anion Gap 16 mmol/L (10-20); BUN (Urea Nitrogen) 32 mg/dL (8.4-25.7); Bilirubin, Total 0.6 mg/dL (0.2-1.2); Calc. Creatinine Clearance 61 mL/min (70-130); Carbon Dioxide 25 mmol/L (23-31); Chloride 105 mmol/L (98-107); Estimated GFR 53; Globulin 2.8 g/dL (2.4-3.5); Glucose 107 mg/dL (83-110); Protein, Total 6.9 g/dL (5.8-8.1); Sodium 142 mmol/L (136-145)
[2022-11-29] MEDS ORDERED: Vancomycin HCl 500 MG in Sodium Chloride 0.9% 250 ML 250 ML IVPB SCH (08:00)
[2022-11-29] MEDS: cycloSPORINE, Modified 25 MG CAP PO SCH ×2 (08:32→21:59)
[2022-11-29] MEDS: Acetaminophen 325 MG TAB PO PRN (08:33)
[2022-11-29] MEDS: predniSONE 5 MG TAB PO SCH (08:34)
[2022-11-29] MEDS: Mycophenolate DR 180 MG TAB PO SCH ×2 (08:34→21:56)
[2022-11-29] MEDS: Tamsulosin HCl 0.4 MG CAP PO SCH (08:34)
[2022-11-29] MEDS: Finasteride 5 MG TAB PO SCH (08:35)
[2022-11-29] MEDS: Cholecalciferol (Vitamin D3) 400 UNITS TAB PO SCH (08:35)
[2022-11-29] MEDS: Calcium Carbonate + Vit D 250 MG TAB PO SCH ×2 (08:38→21:56)
[2022-11-29] MEDS ORDERED: Cefepime 1 GM in Sodium Chloride 0.9% 100 ML IVPB SCH (09:00)
[2022-11-29] MEDS ORDERED: NIFEdipine XL 90 MG TAB PO SCH (10:15)
[2022-11-29] MEDS ORDERED: Melatonin 3 MG TAB PO PRN (15:15)
[2022-11-29] MEDS ORDERED: hydrALAZINE 20 MG/ML VIAL SLOW IVP PRN (16:32)
[2022-11-29] MEDS ORDERED: Furosemide 20 MG/2 ML VIAL SLOW IVP SCH (17:30)
[2022-11-29 17:44] LABS: Troponin I 0.079 ng/mL (< 0.028)
[2022-11-29] MEDS: Atorvastatin Calcium 10 MG TAB PO SCH (21:56)
[2022-11-29] MEDS: busPIRone HCl 5 MG TAB PO SCH (21:57)
[2022-11-30 04:47] LABS: #Monocytes 1.2 thou/uL (0.11-0.59); #Neutrophils 6.2 thou/uL (1.40-6.50); %Basophils 0.2 % (0.0-1.0); %Eosinophils 0.1 % (0.0-10.0); %Monocytes 14.5 % (0.0-10.0); Hematocrit 36.1 % (42.0-52.0); Mean Corpuscular HGB CONC 30.5 g/dL (32.0-36.0); Mean Corpuscular Hemoglobin 27.3 pg (27.0-31.0); Mean Corpuscular Volume 89.6 fl (78.0-98.0); Mean Platelet Volume 10.8 fL (7.4-10.4); Platelet Count 133 10x3/uL (130-400); RBC Distribution Width 16.5 % (11.5-14.5); Red Blood Cell (RBC) Count 4.03 mill/uL (4.70-6.10); White Blood Cell (WBC) Count 8.5 10x3/uL (4.8-10.8)
[2022-11-30 05:13] LABS: ALT (SGPT) 8 U/L (8-55); AST (SGOT) 17 U/L (5-34); Albumin 4.8 g/dL (3.4-4.8); Alkaline Phosphatase 65 U/L (40-110); Anion Gap 19 mmol/L (10-20); BUN (Urea Nitrogen) 24 mg/dL (8.4-25.7); Bilirubin, Total 0.9 mg/dL (0.2-1.2); Calc. Creatinine Clearance 70 mL/min (70-130); Calcium 9.8 mg/dL (7.8-10.44); Carbon Dioxide 24 mmol/L (23-31); Chloride 104 mmol/L (98-107); Estimated GFR 61; Globulin 3.1 g/dL (2.4-3.5); Glucose 125 mg/dL (83-110); Potassium 3.8 mmol/L (3.5-5.1); Protein, Total 7.9 g/dL (5.8-8.1); Sodium 143 mmol/L (136-145)
[2022-11-30] MEDS ORDERED: Furosemide 20 MG/2 ML VIAL SLOW IVP SCH (06:45)
[2022-11-30] MEDS: Albumin 25% 25 GM/100 ML BOT IVPB SCH (06:52)
[2022-11-30] MEDS ORDERED: cefTRIAXone\\ROCEPHIN 2 GM in Sodium Chloride 0.9% 100 ML IVPB SCH (09:00)
[2022-11-30] MEDS: Cholecalciferol (Vitamin D3) 400 UNITS TAB PO SCH (09:24)
[2022-11-30] MEDS: NIFEdipine XL 90 MG TAB PO SCH (09:24)
[2022-11-30] MEDS: predniSONE 5 MG TAB PO SCH (09:24)
[2022-11-30] MEDS: cycloSPORINE, Modified 25 MG CAP PO SCH ×2 (09:25→21:55)
[2022-11-30] MEDS: Tamsulosin HCl 0.4 MG CAP PO SCH (09:25)
[2022-11-30] MEDS: Finasteride 5 MG TAB PO SCH (09:25)
[2022-11-30] MEDS: Labetalol HCl 100 MG TAB PO SCH ×2 (09:25→21:56)
[2022-11-30] MEDS: Mycophenolate DR 180 MG TAB PO SCH ×2 (09:25→21:55)
[2022-11-30] MEDS: busPIRone HCl 5 MG TAB PO SCH ×2 (09:25→21:56)
[2022-11-30] MEDS: Calcium Carbonate + Vit D 250 MG TAB PO SCH ×2 (10:15→21:59)
[2022-11-30] MEDS ORDERED: Iopamidol-370 76% 500 ML MDV (1 ML CHARGE) ONE (12:09)
[2022-11-30] MEDS: Acetaminophen 325 MG TAB PO PRN (12:49)
[2022-11-30] MEDS: Ipratropium/Albuterol 3 ML NEB NEB SCH ×2 (16:43→18:53)
[2022-11-30] MEDS: Atorvastatin Calcium 10 MG TAB PO SCH (21:56)
[2022-11-30] MEDS ORDERED: diphenhydrAMINE 25 MG CAP PO SCH (23:15)
[2022-12-01 05:41] LABS: #Monocytes 0.9 thou/uL (0.11-0.59); #Neutrophils 4.1 thou/uL (1.40-6.50); %Basophils 0.2 % (0.0-1.0); %Eosinophils 0.5 % (0.0-10.0); %Monocytes 15.2 % (0.0-10.0); %Neutrophils 68.1 % (42.0-75.0); Hemoglobin 10.3 g/dL (14.0-18.0); Mean Corpuscular HGB CONC 29.4 g/dL (32.0-36.0); Mean Corpuscular Hemoglobin 26.8 pg (27.0-31.0); Mean Corpuscular Volume 90.9 fl (78.0-98.0); Mean Platelet Volume 10.2 fL (7.4-10.4); Platelet Count 162 10x3/uL (130-400); RBC Distribution Width 16.8 % (11.5-14.5); Red Blood Cell (RBC) Count 3.85 mill/uL (4.70-6.10); White Blood Cell (WBC) Count 6.1 10x3/uL (4.8-10.8)
[2022-12-01 06:05] LABS: ALT (SGPT) 9 U/L (8-55); AST (SGOT) 17 U/L (5-34); Albumin 4.3 g/dL (3.4-4.8); Alkaline Phosphatase 54 U/L (40-110); Anion Gap 17 mmol/L (10-20); BUN (Urea Nitrogen) 34 mg/dL (8.4-25.7); Bilirubin, Total 0.6 mg/dL (0.2-1.2); Calc. Creatinine Clearance 63 mL/min (70-130); Calcium 9.5 mg/dL (7.8-10.44); Carbon Dioxide 27 mmol/L (23-31); Chloride 102 mmol/L (98-107); Estimated GFR 54; Globulin 3.1 g/dL (2.4-3.5); Glucose 120 mg/dL (83-110); Potassium 4.2 mmol/L (3.5-5.1); Protein, Total 7.4 g/dL (5.8-8.1); Sodium 142 mmol/L (136-145)
[2022-12-01] MEDS: Ipratropium/Albuterol 3 ML NEB NEB SCH ×4 (07:09→18:59)
[2022-12-01] MEDS ORDERED: hydrOXYzine 25 MG TAB PO PRN (08:33)
[2022-12-01] MEDS ORDERED: LevoFLOXacin 750 MG TAB PO SCH (09:00)
[2022-12-01] MEDS: busPIRone HCl 5 MG TAB PO SCH ×2 (09:43→21:27)
[2022-12-01] MEDS: Finasteride 5 MG TAB PO SCH (09:44)
[2022-12-01] MEDS: Cholecalciferol (Vitamin D3) 400 UNITS TAB PO SCH (09:44)
[2022-12-01] MEDS: cycloSPORINE, Modified 25 MG CAP PO SCH ×2 (09:44→21:28)
[2022-12-01] MEDS: Calcium Carbonate + Vit D 250 MG TAB PO SCH ×2 (09:44→21:26)
[2022-12-01] MEDS: Labetalol HCl 100 MG TAB PO SCH ×2 (09:44→21:27)
[2022-12-01] MEDS: NIFEdipine XL 90 MG TAB PO SCH (09:45)
[2022-12-01] MEDS: predniSONE 5 MG TAB PO SCH (09:45)
[2022-12-01] MEDS: Tamsulosin HCl 0.4 MG CAP PO SCH (09:45)
[2022-12-01] MEDS: Mycophenolate DR 180 MG TAB PO SCH ×2 (09:45→21:27)
[2022-12-01] MEDS: LevoFLOXacin 750 MG TAB PO SCH (13:15)
[2022-12-01] MEDS: Mometasone 100 MCG/Formoterol 5 MCG 120 PUFF INHALER INH SCH (19:00)
[2022-12-01] MEDS: Atorvastatin Calcium 10 MG TAB PO SCH (21:28)
[2022-12-02 05:54] LABS: #Monocytes 0.9 thou/uL (0.11-0.59); #Neutrophils 3.5 thou/uL (1.40-6.50); %Basophils 0.4 % (0.0-1.0); %Eosinophils 0.7 % (0.0-10.0); %Lymphocytes 20.6 % (21.0-51.0); %Monocytes 15.1 % (0.0-10.0); %Neutrophils 62.1 % (42.0-75.0); Hematocrit 36.4 % (42.0-52.0); Hemoglobin 10.6 g/dL (14.0-18.0); Mean Corpuscular HGB CONC 29.1 g/dL (32.0-36.0); Mean Corpuscular Hemoglobin 26.7 pg (27.0-31.0); Mean Corpuscular Volume 91.7 fl (78.0-98.0); Mean Platelet Volume 11.5 fL (7.4-10.4); Platelet Count 172 10x3/uL (130-400); RBC Distribution Width 16.4 % (11.5-14.5); Red Blood Cell (RBC) Count 3.97 mill/uL (4.70-6.10); White Blood Cell (WBC) Count 5.7 10x3/uL (4.8-10.8)
[2022-12-02 06:19] LABS: ALT (SGPT) 10 U/L (8-55); AST (SGOT) 20 U/L (5-34); Albumin 4.1 g/dL (3.4-4.8); Alkaline Phosphatase 55 U/L (40-110); Anion Gap 16 mmol/L (10-20); BUN (Urea Nitrogen) 41 mg/dL (8.4-25.7); Bilirubin, Total 0.4 mg/dL (0.2-1.2); Calc. Creatinine Clearance 64 mL/min (70-130); Calcium 9.8 mg/dL (7.8-10.44); Carbon Dioxide 27 mmol/L (23-31); Chloride 104 mmol/L (98-107); Estimated GFR 55; Globulin 3.2 g/dL (2.4-3.5); Glucose 100 mg/dL (83-110); Potassium 4.7 mmol/L (3.5-5.1); Protein, Total 7.3 g/dL (5.8-8.1); Sodium 142 mmol/L (136-145)
[2022-12-02] MEDS: Mometasone 100 MCG/Formoterol 5 MCG 120 PUFF INHALER INH SCH ×2 (07:42→18:31)
[2022-12-02] MEDS: Ipratropium/Albuterol 3 ML NEB NEB SCH ×4 (07:43→18:22)
[2022-12-02] MEDS ORDERED: Polyethylene Glycol 3350 17 GM Packet PO SCH (09:15)
[2022-12-02] MEDS: Mycophenolate DR 180 MG TAB PO SCH ×2 (09:56→20:24)
[2022-12-02] MEDS: Furosemide 20 MG TAB PO SCH (09:58)
[2022-12-02] MEDS: Tamsulosin HCl 0.4 MG CAP PO SCH (09:58)
[2022-12-02] MEDS: predniSONE 5 MG TAB PO SCH (09:58)
[2022-12-02] MEDS: Cholecalciferol (Vitamin D3) 400 UNITS TAB PO SCH (09:59)
[2022-12-02] MEDS: NIFEdipine XL 90 MG TAB PO SCH (09:59)
[2022-12-02] MEDS: busPIRone HCl 5 MG TAB PO SCH ×2 (09:59→20:23)
[2022-12-02] MEDS: Labetalol HCl 100 MG TAB PO SCH ×2 (09:59→20:24)
[2022-12-02] MEDS: Finasteride 5 MG TAB PO SCH (10:01)
[2022-12-02] MEDS: LevoFLOXacin 750 MG TAB PO SCH (10:05)
[2022-12-02] MEDS: cycloSPORINE, Modified 25 MG CAP PO SCH ×2 (10:06→20:24)
[2022-12-02] MEDS: Calcium Carbonate + Vit D 250 MG TAB PO SCH ×2 (10:07→20:23)
[2022-12-02] MEDS: Atorvastatin Calcium 10 MG TAB PO SCH (20:23)
[2022-12-03 04:50] LABS: #Monocytes 0.7 thou/uL (0.11-0.59); #Neutrophils 2.7 thou/uL (1.40-6.50); %Basophils 0.2 % (0.0-1.0); %Eosinophils 0.6 % (0.0-10.0); %Lymphocytes 30.8 % (21.0-51.0); %Monocytes 14.2 % (0.0-10.0); %Neutrophils 52.6 % (42.0-75.0); Hematocrit 35.5 % (42.0-52.0); Hemoglobin 10.7 g/dL (14.0-18.0); Mean Corpuscular HGB CONC 30.1 g/dL (32.0-36.0); Mean Corpuscular Hemoglobin 27.2 pg (27.0-31.0); Mean Corpuscular Volume 90.1 fl (78.0-98.0); Mean Platelet Volume 9.8 fL (7.4-10.4); Platelet Count 215 10x3/uL (130-400); RBC Distribution Width 16.5 % (11.5-14.5); Red Blood Cell (RBC) Count 3.94 mill/uL (4.70-6.10); White Blood Cell (WBC) Count 5.1 10x3/uL (4.8-10.8)
[2022-12-03 05:17] LABS: ALT (SGPT) 9 U/L (8-55); AST (SGOT) 16 U/L (5-34); Albumin 3.8 g/dL (3.4-4.8); Alkaline Phosphatase 56 U/L (40-110); Anion Gap 12 mmol/L (10-20); BUN (Urea Nitrogen) 36 mg/dL (8.4-25.7); Bilirubin, Total 0.4 mg/dL (0.2-1.2); Calc. Creatinine Clearance 69 mL/min (70-130); Calcium 9.5 mg/dL (7.8-10.44); Carbon Dioxide 30 mmol/L (23-31); Chloride 105 mmol/L (98-107); Estimated GFR 61; Globulin 2.9 g/dL (2.4-3.5); Glucose 105 mg/dL (83-110); Potassium 4.1 mmol/L (3.5-5.1); Protein, Total 6.7 g/dL (5.8-8.1); Sodium 143 mmol/L (136-145)
[2022-12-03] MEDS: Mometasone 100 MCG/Formoterol 5 MCG 120 PUFF INHALER INH SCH ×2 (08:03→18:20)
[2022-12-03] MEDS: Ipratropium/Albuterol 3 ML NEB NEB SCH ×4 (08:05→18:22)
[2022-12-03] MEDS: LevoFLOXacin 750 MG TAB PO SCH (10:03)
[2022-12-03] MEDS: cycloSPORINE, Modified 25 MG CAP PO SCH ×2 (10:03→21:15)
[2022-12-03] MEDS: Furosemide 20 MG TAB PO SCH (10:04)
[2022-12-03] MEDS: Mycophenolate DR 180 MG TAB PO SCH ×2 (10:05→21:14)
[2022-12-03] MEDS: Cholecalciferol (Vitamin D3) 400 UNITS TAB PO SCH (10:05)
[2022-12-03] MEDS: predniSONE 5 MG TAB PO SCH (10:06)
[2022-12-03] MEDS: Finasteride 5 MG TAB PO SCH (10:06)
[2022-12-03] MEDS: busPIRone HCl 5 MG TAB PO SCH ×2 (10:06→21:15)
[2022-12-03] MEDS: Labetalol HCl 100 MG TAB PO SCH ×2 (10:07→21:15)
[2022-12-03] MEDS: Tamsulosin HCl 0.4 MG CAP PO SCH (10:08)
[2022-12-03] MEDS: NIFEdipine XL 90 MG TAB PO SCH (10:08)
[2022-12-03] MEDS: Polyethylene Glycol 3350 17 GM Packet PO SCH (10:09)
[2022-12-03] MEDS: Calcium Carbonate + Vit D 250 MG TAB PO SCH ×2 (10:19→21:14)
[2022-12-03] MEDS: diphenhydrAMINE 25 MG CAP PO PRN (21:14)
[2022-12-03] MEDS: Atorvastatin Calcium 10 MG TAB PO SCH (21:14)
[2022-12-03] MEDS: Melatonin 3 MG TAB PO SCH (21:15)
[2022-12-04] MEDS ORDERED: Polyethylene Glycol 3350 17 GM Packet PO SCH (00:52)
[2022-12-04] MEDS: Ipratropium/Albuterol 3 ML NEB NEB SCH ×2 (06:46→10:21)
[2022-12-04] MEDS: Mometasone 100 MCG/Formoterol 5 MCG 120 PUFF INHALER INH SCH ×2 (06:48→18:39)
[2022-12-04] MEDS ORDERED: Docusate 100 MG CAP PO SCH (10:00)
[2022-12-04] MEDS: LevoFLOXacin 750 MG TAB PO SCH (10:16)
[2022-12-04] MEDS: Furosemide 20 MG TAB PO SCH (10:17)
[2022-12-04] MEDS: Cholecalciferol (Vitamin D3) 400 UNITS TAB PO SCH (10:17)
[2022-12-04] MEDS: Calcium Carbonate + Vit D 250 MG TAB PO SCH ×2 (10:17→21:13)
[2022-12-04] MEDS: Tamsulosin HCl 0.4 MG CAP PO SCH (10:17)
[2022-12-04] MEDS: Mycophenolate DR 180 MG TAB PO SCH ×2 (10:17→21:13)
[2022-12-04] MEDS: Finasteride 5 MG TAB PO SCH (10:17)
[2022-12-04] MEDS: predniSONE 5 MG TAB PO SCH (10:19)
[2022-12-04] MEDS: busPIRone HCl 5 MG TAB PO SCH ×2 (10:19→21:12)
[2022-12-04] MEDS: Polyethylene Glycol 3350 17 GM Packet PO SCH (10:19)
[2022-12-04] MEDS: cycloSPORINE, Modified 25 MG CAP PO SCH ×2 (10:19→21:13)
[2022-12-04] MEDS: Labetalol HCl 100 MG TAB PO SCH ×2 (10:19→21:13)
[2022-12-04] MEDS: NIFEdipine XL 90 MG TAB PO SCH (10:19)
[2022-12-04] MEDS: Acetaminophen 325 MG TAB PO PRN (10:20)
[2022-12-04] MEDS ORDERED: Ipratropium/Albuterol 3 ML NEB NEB PRN (10:27)
[2022-12-04 14:01] VITALS: BMI 28.3
[2022-12-04 19:10] LABS: #Monocytes 0.5 thou/uL (0.11-0.59); #Neutrophils 2.7 thou/uL (1.40-6.50); %Basophils 0.4 % (0.0-1.0); %Eosinophils 0.2 % (0.0-10.0); %Lymphocytes 31.8 % (21.0-51.0); %Monocytes 10.5 % (0.0-10.0); %Neutrophils 55.9 % (42.0-75.0); Hematocrit 34.4 % (42.0-52.0); Hemoglobin 10.8 g/dL (14.0-18.0); Mean Corpuscular HGB CONC 31.4 g/dL (32.0-36.0); Mean Corpuscular Hemoglobin 28.3 pg (27.0-31.0); Mean Corpuscular Volume 90.1 fl (78.0-98.0); Platelet Count 463 10x3/uL (130-400); RBC Distribution Width 17.3 % (11.5-14.5); Red Blood Cell (RBC) Count 3.82 mill/uL (4.70-6.10); White Blood Cell (WBC) Count 4.8 10x3/uL (4.8-10.8)
[2022-12-04 19:40] LABS: ALT (SGPT) 11 U/L (8-55); AST (SGOT) 20 U/L (5-34); Albumin 4.1 g/dL (3.4-4.8); Alkaline Phosphatase 54 U/L (40-110); Anion Gap 16 mmol/L (10-20); BUN (Urea Nitrogen) 31 mg/dL (8.4-25.7); Bilirubin, Total 0.4 mg/dL (0.2-1.2); Calc. Creatinine Clearance 55 mL/min (70-130); Calcium 9.7 mg/dL (7.8-10.44); Carbon Dioxide 27 mmol/L (23-31); Chloride 103 mmol/L (98-107); Estimated GFR 47; Globulin 3.2 g/dL (2.4-3.5); Glucose 107 mg/dL (83-110); Potassium 4.7 mmol/L (3.5-5.1); Protein, Total 7.3 g/dL (5.8-8.1); Sodium 141 mmol/L (136-145)
[2022-12-04] MEDS: diphenhydrAMINE 25 MG CAP PO PRN (21:12)
[2022-12-04] MEDS: Melatonin 3 MG TAB PO SCH (21:13)
[2022-12-04] MEDS: Atorvastatin Calcium 10 MG TAB PO SCH (21:13)
[2022-12-05 04:03] LABS: #Monocytes 0.7 thou/uL (0.11-0.59); #Neutrophils 2.4 thou/uL (1.40-6.50); %Basophils 0.4 % (0.0-1.0); %Eosinophils 0.8 % (0.0-10.0); %Lymphocytes 37.8 % (21.0-51.0); %Monocytes 13.4 % (0.0-10.0); %Neutrophils 46.4 % (42.0-75.0); Hematocrit 33.6 % (42.0-52.0); Hemoglobin 9.8 g/dL (14.0-18.0); Mean Corpuscular HGB CONC 29.2 g/dL (32.0-36.0); Mean Corpuscular Hemoglobin 27.2 pg (27.0-31.0); Mean Platelet Volume 10.1 fL (7.4-10.4); RBC Distribution Width 16.5 % (11.5-14.5); White Blood Cell (WBC) Count 5.2 10x3/uL (4.8-10.8)
[2022-12-05 04:13] LABS: Mean Corpuscular Volume 93.3 fl (78.0-98.0); Platelet Count 260 10x3/uL (130-400)
[2022-12-05 04:39] LABS: ALT (SGPT) 10 U/L (8-55); AST (SGOT) 20 U/L (5-34); Albumin 3.8 g/dL (3.4-4.8); Alkaline Phosphatase 49 U/L (40-110); Anion Gap 14 mmol/L (10-20); BUN (Urea Nitrogen) 32 mg/dL (8.4-25.7); Bilirubin, Total 0.4 mg/dL (0.2-1.2); Calc. Creatinine Clearance 57 mL/min (70-130); Calcium 9.2 mg/dL (7.8-10.44); Carbon Dioxide 31 mmol/L (23-31); Chloride 102 mmol/L (98-107); Estimated GFR 49; Globulin 2.8 g/dL (2.4-3.5); Glucose 99 mg/dL (83-110); Potassium 4.3 mmol/L (3.5-5.1); Protein, Total 6.6 g/dL (5.8-8.1); Sodium 143 mmol/L (136-145)
[2022-12-05] MEDS: Fondaparinux Sodium 2.5 MG/0.5 ML SYRINGE SC SCH (05:58)
[2022-12-05] MEDS: Mometasone 100 MCG/Formoterol 5 MCG 120 PUFF INHALER INH SCH ×2 (07:47→18:43)
[2022-12-05] MEDS: cycloSPORINE, Modified 25 MG CAP PO SCH ×2 (10:01→22:06)
[2022-12-05] MEDS: Cholecalciferol (Vitamin D3) 400 UNITS TAB PO SCH (10:01)
[2022-12-05] MEDS: predniSONE 5 MG TAB PO SCH (10:02)
[2022-12-05] MEDS: Mycophenolate DR 180 MG TAB PO SCH ×2 (10:02→22:07)
[2022-12-05] MEDS: LevoFLOXacin 750 MG TAB PO SCH (10:03)
[2022-12-05] MEDS: Labetalol HCl 100 MG TAB PO SCH ×2 (10:03→22:06)
[2022-12-05] MEDS: Tamsulosin HCl 0.4 MG CAP PO SCH (10:03)
[2022-12-05] MEDS: NIFEdipine XL 90 MG TAB PO SCH (10:03)
[2022-12-05] MEDS: Polyethylene Glycol 3350 17 GM Packet PO SCH (10:04)
[2022-12-05] MEDS: Finasteride 5 MG TAB PO SCH (10:04)
[2022-12-05] MEDS: Calcium Carbonate + Vit D 250 MG TAB PO SCH ×2 (10:08→22:05)
[2022-12-05] MEDS: busPIRone HCl 5 MG TAB PO SCH ×2 (10:12→22:05)
[2022-12-05] MEDS: Atorvastatin Calcium 10 MG TAB PO SCH (22:05)
[2022-12-05] MEDS: Melatonin 3 MG TAB PO SCH (22:06)
[2022-12-06 06:24] LABS: #Monocytes 0.6 thou/uL (0.11-0.59); #Neutrophils 2.7 thou/uL (1.40-6.50); %Basophils 0.4 % (0.0-1.0); %Eosinophils 0.8 % (0.0-10.0); %Lymphocytes 35.3 % (21.0-51.0); %Monocytes 11.3 % (0.0-10.0); %Neutrophils 50.9 % (42.0-75.0); Hematocrit 37.4 % (42.0-52.0); Hemoglobin 10.4 g/dL (14.0-18.0); Mean Corpuscular HGB CONC 27.8 g/dL (32.0-36.0); Mean Corpuscular Hemoglobin 26.7 pg (27.0-31.0); Mean Corpuscular Volume 96.1 fl (78.0-98.0); Mean Platelet Volume 12.2 fL (7.4-10.4); Platelet Count 163 10x3/uL (130-400); RBC Distribution Width 16.6 % (11.5-14.5); Red Blood Cell (RBC) Count 3.89 mill/uL (4.70-6.10); White Blood Cell (WBC) Count 5.2 10x3/uL (4.8-10.8)
[2022-12-06] MEDS: Fondaparinux Sodium 2.5 MG/0.5 ML SYRINGE SC SCH (06:33)
[2022-12-06 06:53] LABS: Delete Auto Diff?? NO
[2022-12-06 06:54] LABS: ALT (SGPT) 12 U/L (8-55); AST (SGOT) 24 U/L (5-34); Albumin 3.7 g/dL (3.4-4.8); Alkaline Phosphatase 49 U/L (40-110); Anion Gap 14 mmol/L (10-20); BUN (Urea Nitrogen) 30 mg/dL (8.4-25.7); Bilirubin, Total 0.4 mg/dL (0.2-1.2); Calc. Creatinine Clearance 63 mL/min (70-130); Calcium 9.4 mg/dL (7.8-10.44); Carbon Dioxide 31 mmol/L (23-31); Chloride 103 mmol/L (98-107); Estimated GFR 54; Glucose 94 mg/dL (83-110); Potassium 4.8 mmol/L (3.5-5.1); Protein, Total 6.7 g/dL (5.8-8.1); Sodium 143 mmol/L (136-145)
[2022-12-06] MEDS: Mometasone 100 MCG/Formoterol 5 MCG 120 PUFF INHALER INH SCH (06:54)
[2022-12-06] MEDS: Cholecalciferol (Vitamin D3) 400 UNITS TAB PO SCH (09:32)
[2022-12-06] MEDS: Labetalol HCl 100 MG TAB PO SCH (09:32)
[2022-12-06] MEDS: Calcium Carbonate + Vit D 250 MG TAB PO SCH (09:33)
[2022-12-06] MEDS: Tamsulosin HCl 0.4 MG CAP PO SCH (09:33)
[2022-12-06] MEDS: predniSONE 5 MG TAB PO SCH (09:33)
[2022-12-06] MEDS: Finasteride 5 MG TAB PO SCH (09:33)
[2022-12-06] MEDS: NIFEdipine XL 90 MG TAB PO SCH (09:33)
[2022-12-06] MEDS: Polyethylene Glycol 3350 17 GM Packet PO SCH (09:33)
[2022-12-06] MEDS: Mycophenolate DR 180 MG TAB PO SCH (09:33)
[2022-12-06] MEDS: busPIRone HCl 5 MG TAB PO SCH (09:33)
[2022-12-06] MEDS: cycloSPORINE, Modified 25 MG CAP PO SCH (09:33)
[2022-12-06] MEDS: LevoFLOXacin 750 MG TAB PO SCH (09:34)
[2022-12-06 12:16] LABS: Anisocytosis SLIGHT = 6-15 cells (100X) (0-5/hpf); Hypochromia SLIGHT = 6-15 cells (100X) (0-5/hpf); Polychromasia SLIGHT = 2-3 cells (100X) (0-2/hpf)
[2022-12-06 12:17] LABS: Platelet Adequacy Comment Appears Adequate; RBC Morph Comment Within Normal Limits
[2022-12-06 19:49] VITALS: BP 152/70; TEMP 98.1
== END 2022-12-06 20:05 | DRG 698 ==
LOC: ERS 09:01 → 2NO 13:00
PROVIDERS: ADMIT Student in an Organized Health Care Education/Training Program; ATTEND Student in an Organized Health Care Education/Training Program
PROC: 30233J1 Transfusion of Nonautologous Serum Albumin into Peripheral Vein, Percutaneous Approach (ICD-10-PCS; principal; 2022-11-29)
DX: T86.12 Kidney transplant failure (principal); I21.A1 Myocardial infarction type 2; I50.33 Acute on chronic diastolic (congestive) heart failure; J96.01 Acute respiratory failure with hypoxia; I13.0 Hypertensive heart and chronic kidney disease with heart failure and stage 1 through stage 4 chronic kidney disease, or unspecified chronic kidney disease; N12 Tubulo-interstitial nephritis, not specified as acute or chronic; G82.20 Paraplegia, unspecified; N17.9 Acute kidney failure, unspecified; R78.81 Bacteremia; L02.416 Cutaneous abscess of left lower limb; I34.0 Nonrheumatic mitral (valve) insufficiency; D69.6 Thrombocytopenia, unspecified; E78.5 Hyperlipidemia, unspecified; N18.30 Chronic kidney disease, stage 3 unspecified; J44.9 Chronic obstructive pulmonary disease, unspecified; I48.91 Unspecified atrial fibrillation; M06.9 Rheumatoid arthritis, unspecified; B18.2 Chronic viral hepatitis C; N40.0 Benign prostatic hyperplasia without lower urinary tract symptoms; Z96.643 Presence of artificial hip joint, bilateral; R77.8 Other specified abnormalities of plasma proteins; G47.00 Insomnia, unspecified; M79.10 Myalgia, unspecified site; K59.09 Other constipation; Z20.822 Contact with and (suspected) exposure to COVID-19; Y83.8 Other surgical procedures as the cause of abnormal reaction of the patient, or of later complication, without mention of misadventure at the time of the procedure; Z88.2 Allergy status to sulfonamides; Z86.718 Personal history of other venous thrombosis and embolism; Z86.711 Personal history of pulmonary embolism; Z98.41 Cataract extraction status, right eye; Z98.42 Cataract extraction status, left eye
CPT/HCPCS: 36415; 36416; 71045; 71275; 76770; 80053; 80158; 80202; 81001; 83605; 83690; 83880; 84145; 84484; 85025; 85610; 85730; 87040; 87077; 87086; 87149; 87186; 93005; 93010; 93306; 94640; 94760; 96365; 96366; 96367; 96375; 97139; J0360; J0692; J0696; J1652; J1940; J2405; J3010; J3370; J3370-JW; J3490; J7050; J7120; J7512; J7515; J7518; J7620; P9047; Q9967

== ENCOUNTER 2023-04-15 18:52 | Inpatient (IN) | payer OTHER ==
[2023-04-15 20:20] LABS: Bacteria/HPF None Seen HPF (None Seen); Bilirubin Negative (Negative); Blood, Urine 2+ (Negative); CAUTI Indications for Culture Pelvic or flank pain; Clarity Clear (Clear); Glucose, Urine (Dipstick) Normal (Negative); Ketone, Urine Negative (Negative); Leukocyte Negative Leu/uL (Negative); Nitrite Negative (Negative); Protein, Urine (Dipstick) 100 mg/dL (Neg-Trace); Specific Gravity, Urine 1.011 (1.002-1.036); Squamous Epithelial 0-3 HPF (0-3); Urobilinogen Normal mg/dL (Less than 2); WBC/HPF 0-3 HPF (0-3); pH, Urine 6.5 (5.0-9.0)
[2023-04-15 20:23] LABS: Urine Culture Reflex No No
[2023-04-15 20:33] LABS: #Monocytes 0.5 thou/uL (0.11-0.59); #Neutrophils 7.5 thou/uL (1.40-6.50); %Basophils 0.1 % (0.0-1.0); %Monocytes 5.5 % (0.0-10.0); %Neutrophils 87.9 % (42.0-75.0); Hematocrit 35.1 % (42.0-52.0); Hemoglobin 10.6 g/dL (14.0-18.0); Mean Corpuscular HGB CONC 30.2 g/dL (32.0-36.0); Mean Corpuscular Hemoglobin 28.3 pg (27.0-31.0); Mean Corpuscular Volume 93.6 fl (78.0-98.0); Mean Platelet Volume 11.2 fL (7.4-10.4); RBC Distribution Width 15.2 % (11.5-14.5); Red Blood Cell (RBC) Count 3.75 mill/uL (4.70-6.10); White Blood Cell (WBC) Count 8.5 10x3/uL (4.8-10.8)
[2023-04-15] MEDS ORDERED: Cefepime 2 GM VIAL ONE (20:44)
[2023-04-15 20:45] LABS: INR-International Normal Ratio 1.1
[2023-04-15 20:46] LABS: PTT 26.8 sec (22.9-36.1)
[2023-04-15 20:49] LABS: SARS-CoV-2 NAA Rapid Test Not Detected (NotDetected)
[2023-04-15 20:57] LABS: ALT (SGPT) 9 U/L (8-55); AST (SGOT) 19 U/L (5-34); Albumin 3.8 g/dL (3.4-4.8); Alkaline Phosphatase 71 U/L (40-110); Anion Gap 12 mmol/L (10-20); BUN (Urea Nitrogen) 25 mg/dL (8.4-25.7); Bilirubin, Total 1.1 mg/dL (0.2-1.2); Calc. Creatinine Clearance 0 mL/min (70-130); Calcium 8.5 mg/dL (7.8-10.44); Carbon Dioxide 28 mmol/L (23-31); Chloride 102 mmol/L (98-107); Estimated GFR 55; Globulin 3.1 g/dL (2.4-3.5); Glucose 105 mg/dL (83-110); Protein, Total 6.9 g/dL (5.8-8.1); Sodium 138 mmol/L (136-145)
[2023-04-15 20:59] LABS: Troponin I 0.107 ng/mL (< 0.028)
[2023-04-15] MEDS ORDERED: Vancomycin (BATCH) 2 GM in Premix 1 BAG IVPB SCH (21:00)
[2023-04-15] MEDS ORDERED: Vancomycin (BATCH) 2 GM/500 ML BAG ONE (21:08)
[2023-04-15 22:20] LABS: Platelet Count 104 10x3/uL (130-400)
[2023-04-15 22:21] LABS: Platelet Adequacy Comment Appears Decreased
[2023-04-15] MEDS ORDERED: Ondansetron PF 4 MG/2 ML Vial ONE (22:33)
[2023-04-15] MEDS ORDERED: Morphine 4 MG/ML VIAL ONE (22:33)
[2023-04-15] MEDS ORDERED: Pantoprazole 40 MG VIAL ONE (22:33)
[2023-04-15] MEDS ORDERED: Rivaroxaban 10 MG TAB ONE (22:36)
[2023-04-16] MEDS ORDERED: Enoxaparin 80 MG (0.8 mL) SYRINGE SC SCH (00:15)
[2023-04-16] MEDS ORDERED: Furosemide 20 MG (2 mL) VIAL SLOW IVP SCH ×2 (00:30→04:45)
[2023-04-16] MEDS ORDERED: Furosemide 20 MG (2 mL) VIAL ONE ×2 (00:53→05:07)
[2023-04-16] MEDS ORDERED: Rivaroxaban 2.5 MG TAB PO SCH (01:30)
[2023-04-16 04:47] LABS: #Monocytes 0.7 thou/uL (0.11-0.59); %Basophils 0.2 % (0.0-1.0); %Lymphocytes 6.2 % (21.0-51.0); %Monocytes 7.2 % (0.0-10.0); %Neutrophils 85.4 % (42.0-75.0); Hematocrit 36.8 % (42.0-52.0); Hemoglobin 10.8 g/dL (14.0-18.0); Mean Corpuscular HGB CONC 29.3 g/dL (32.0-36.0); Mean Corpuscular Hemoglobin 27.8 pg (27.0-31.0); Mean Corpuscular Volume 94.6 fl (78.0-98.0); Mean Platelet Volume 12.4 fL (7.4-10.4); Platelet Count 151 10x3/uL (130-400); RBC Distribution Width 15.3 % (11.5-14.5); Red Blood Cell (RBC) Count 3.89 mill/uL (4.70-6.10); White Blood Cell (WBC) Count 9.4 10x3/uL (4.8-10.8)
[2023-04-16 05:34] LABS: ALT (SGPT) 8 U/L (8-55); AST (SGOT) 24 U/L (5-34); Albumin 3.7 g/dL (3.4-4.8); Alkaline Phosphatase 61 U/L (40-110); Anion Gap 15 mmol/L (10-20); BUN (Urea Nitrogen) 23 mg/dL (8.4-25.7); Bilirubin, Total 1.2 mg/dL (0.2-1.2); Calc. Creatinine Clearance 65 mL/min (70-130); Carbon Dioxide 21 mmol/L (23-31); Chloride 106 mmol/L (98-107); Estimated GFR 56; Globulin 3.2 g/dL (2.4-3.5); Glucose 78 mg/dL (83-110); Potassium 4.7 mmol/L (3.5-5.1); Protein, Total 6.9 g/dL (5.8-8.1); Sodium 137 mmol/L (136-145)
[2023-04-16] MEDS ORDERED: Acetaminophen 325 MG TAB ONE (08:11)
[2023-04-16] MEDS ORDERED: Enoxaparin 100 MG (1 mL) SYRINGE ONE (08:12)
[2023-04-16] MEDS ORDERED: prednisoLONE 10 MG ODT TAB ONE (08:12)
[2023-04-16] MEDS: Enoxaparin 100 MG (1 mL) SYRINGE SC SCH ×2 (08:17→21:10)
[2023-04-16] MEDS: Acetaminophen 325 MG TAB PO PRN ×2 (08:17→16:24)
[2023-04-16] MEDS ORDERED: Furosemide 20 MG TAB PO SCH (09:00)
[2023-04-16] MEDS: Calcium Carbonate 600 MG + Vit D TAB PO SCH ×2 (09:55→16:24)
[2023-04-16] MEDS: predniSONE 5 MG TAB PO SCH (09:56)
[2023-04-16] MEDS: Finasteride 5 MG TAB PO SCH (09:56)
[2023-04-16] MEDS: Mycophenolate DR 180 MG TAB PO SCH ×2 (09:56→21:09)
[2023-04-16] MEDS: Labetalol HCl 100 MG TAB PO SCH ×2 (09:56→21:08)
[2023-04-16] MEDS: cycloSPORINE, Modified 25 MG CAP PO SCH ×2 (09:56→21:09)
[2023-04-16] MEDS ORDERED: Furosemide 40 MG (4 mL) VIAL SLOW IVP SCH (10:15)
[2023-04-16] MEDS ORDERED: Furosemide 40 MG (4 mL) VIAL ONE (11:33)
[2023-04-16] MEDS ORDERED: HYDROcodone/Acetaminophen 5/325 mg Tablet PO SCH (11:45)
[2023-04-16] MEDS ORDERED: Pregabalin 75 MG CAP ONE (11:58)
[2023-04-16] MEDS ORDERED: cefTRIAXone\\ROCEPHIN 1 GM in Sodium Chloride 0.9% 100 ML IVPB SCH (12:00)
[2023-04-16] MEDS ORDERED: Pregabalin 75 MG CAP PO SCH (12:30)
[2023-04-16] MEDS ORDERED: Sodium Chloride 0.9% 100 ML ONE (12:58)
[2023-04-16] MEDS ORDERED: cefTRIAXone (ROCEPHIN) 1 GM VIAL ONE (12:58)
[2023-04-16 18:05] LABS: Troponin I 0.273 ng/mL (< 0.028)
[2023-04-16] MEDS: Cefepime 2 GM in Sodium Chloride 0.9% 100 ML IVPB SCH (18:21)
[2023-04-16 21:01] LABS: Critical Call Chem Troponin I NUR.TML @2101
[2023-04-16] MEDS: Atorvastatin Calcium 10 MG TAB PO SCH (21:08)
[2023-04-16] MEDS ORDERED: Vancomycin (BATCH) 1.5 GM in Premix 1 BAG IVPB SCH (22:00)
[2023-04-16] MEDS ORDERED: Acetaminophen 325 MG TAB PO SCH (22:15)
[2023-04-16] MEDS ORDERED: Heparin 10,000 UNITS/ 10 ML VIAL SLOW IVP SCH (23:00)
[2023-04-16 23:29] LABS: Hematocrit 33.6 % (42.0-52.0); Hemoglobin 9.8 g/dL (14.0-18.0); Platelet Count 112 10x3/uL (130-400)
[2023-04-17 00:05] LABS: Critical Call Chem Troponin I RESULT DECREASING; Troponin I 0.248 ng/mL (< 0.028)
[2023-04-17] MEDS: Heparin 25,000 units/D5W 500 ML IVPB SCH ×2 (00:25→19:35)
[2023-04-17] MEDS: Acetaminophen 325 MG TAB PO PRN ×2 (04:03→15:06)
[2023-04-17] MEDS: Cefepime 2 GM in Sodium Chloride 0.9% 100 ML IVPB SCH (06:14)
[2023-04-17 07:05] LABS: #Monocytes 1.3 thou/uL (0.11-0.59); #Neutrophils 7.8 thou/uL (1.40-6.50); %Basophils 0.1 % (0.0-1.0); %Eosinophils 0.1 % (0.0-10.0); %Lymphocytes 10.9 % (21.0-51.0); %Monocytes 12.3 % (0.0-10.0); Hemoglobin 9.5 g/dL (14.0-18.0); Mean Corpuscular HGB CONC 28.8 g/dL (32.0-36.0); Mean Corpuscular Hemoglobin 27.5 pg (27.0-31.0); Mean Corpuscular Volume 95.4 fl (78.0-98.0); Mean Platelet Volume 11.8 fL (7.4-10.4); Platelet Count 105 10x3/uL (130-400); RBC Distribution Width 15.7 % (11.5-14.5); Red Blood Cell (RBC) Count 3.46 mill/uL (4.70-6.10); White Blood Cell (WBC) Count 10.3 10x3/uL (4.8-10.8)
[2023-04-17 07:23] LABS: PTT 151.7 sec (22.9-36.1)
[2023-04-17 07:45] LABS: Critical Call Chem Troponin I RESULT DECREASING; Troponin I 0.214 ng/mL (< 0.028)
[2023-04-17 07:54] LABS: CellaVision Operator ID LAB.GE; Platelet Adequacy Comment Platelets Decreased; Polychromasia SLIGHT = 2-3 cells HPF (0-2)
[2023-04-17 08:10] LABS: Albumin 2.9 g/dL (3.4-4.8)
[2023-04-17 08:11] LABS: Chloride 101 mmol/L (98-107); Potassium 4.2 mmol/L (3.5-5.1); Sodium 135 mmol/L (136-145)
[2023-04-17 08:12] LABS: Calcium 7.2 mg/dL (7.8-10.44)
[2023-04-17 08:13] LABS: Globulin 2.4 g/dL (2.4-3.5); Glucose 107 mg/dL (83-110); Protein, Total 5.3 g/dL (5.8-8.1)
[2023-04-17 08:14] LABS: Anion Gap 19 mmol/L (10-20); Carbon Dioxide 19 mmol/L (23-31)
[2023-04-17 08:15] LABS: Alkaline Phosphatase 57 U/L (40-110); Bilirubin, Total 1.1 mg/dL (0.2-1.2)
[2023-04-17 08:17] LABS: BUN (Urea Nitrogen) 36 mg/dL (8.4-25.7)
[2023-04-17 08:18] LABS: AST (SGOT) 19 U/L (5-34)
[2023-04-17 08:19] LABS: ALT (SGPT) 7 U/L (8-55)
[2023-04-17 08:28] LABS: Calc. Creatinine Clearance 39 mL/min (70-130); Estimated GFR 31
[2023-04-17] MEDS ORDERED: Sodium Chloride 0.9% 1,000 ML IV SCH (08:45)
[2023-04-17 09:48] LABS: Anion Gap 15 mmol/L (10-20); BUN (Urea Nitrogen) 37 mg/dL (8.4-25.7); Calc. Creatinine Clearance 37 mL/min (70-130); Calcium 7.5 mg/dL (7.8-10.44); Carbon Dioxide 25 mmol/L (23-31); Chloride 98 mmol/L (98-107); Estimated GFR 29; Glucose 110 mg/dL (83-110); Sodium 134 mmol/L (136-145)
[2023-04-17] MEDS: cycloSPORINE, Modified 25 MG CAP PO SCH ×2 (11:03→22:01)
[2023-04-17] MEDS: Mycophenolate DR 180 MG TAB PO SCH ×2 (11:03→22:01)
[2023-04-17] MEDS: Labetalol HCl 100 MG TAB PO SCH ×2 (11:04→21:56)
[2023-04-17] MEDS: Calcium Carbonate 600 MG + Vit D TAB PO SCH ×2 (11:04→17:44)
[2023-04-17] MEDS: Finasteride 5 MG TAB PO SCH (11:04)
[2023-04-17] MEDS: predniSONE 5 MG TAB PO SCH (11:04)
[2023-04-17] MEDS ORDERED: Vancomycin Dose by Levels Sliding Scale (Wt 71-99) FS SCH (11:30)
[2023-04-17] MEDS: Cefepime 1 GM in Sodium Chloride 0.9% 100 ML IVPB SCH (17:07)
[2023-04-17] MEDS: Albumin 25% 25 GM (100 mL) BOT IVPB SCH (17:44)
[2023-04-17 21:34] LABS: Vancomycin, Trough 20.6 ug/mL
[2023-04-17] MEDS: Atorvastatin Calcium 10 MG TAB PO SCH (22:01)
[2023-04-18] MEDS: Albumin 25% 25 GM (100 mL) BOT IVPB SCH ×3 (00:16→12:19)
[2023-04-18] MEDS: Acetaminophen 325 MG TAB PO PRN ×3 (00:16→21:16)
[2023-04-18 02:06] LABS: #Monocytes 0.9 thou/uL (0.11-0.59); #Neutrophils 5.4 thou/uL (1.40-6.50); %Basophils 0.1 % (0.0-1.0); %Eosinophils 0.5 % (0.0-10.0); %Lymphocytes 12.6 % (21.0-51.0); %Monocytes 11.7 % (0.0-10.0); %Neutrophils 74.7 % (42.0-75.0); Hematocrit 30.4 % (42.0-52.0); Mean Corpuscular HGB CONC 29.6 g/dL (32.0-36.0); Mean Corpuscular Hemoglobin 28.1 pg (27.0-31.0); Platelet Count 95 10x3/uL (130-400); RBC Distribution Width 15.4 % (11.5-14.5); White Blood Cell (WBC) Count 7.3 10x3/uL (4.8-10.8)
[2023-04-18 02:25] LABS: PTT 210.3 sec (22.9-36.1)
[2023-04-18 02:45] LABS: Troponin I 0.126 ng/mL (< 0.028)
[2023-04-18] MEDS ORDERED: diphenhydrAMINE 25 MG in Sodium Chloride 0.9% 50 ML IVPB SCH (03:00)
[2023-04-18] MEDS ORDERED: Metoclopramide HCl 10 MG (2 mL) VIAL IVP SCH (03:00)
[2023-04-18] MEDS ORDERED: Pantoprazole 40 MG VIAL IVP SCH (03:15)
[2023-04-18 03:21] LABS: ALT (SGPT) Less than 7 U/L (8-55); AST (SGOT) 14 U/L (5-34); Albumin 3.4 g/dL (3.4-4.8); Alkaline Phosphatase 57 U/L (40-110); Anion Gap 17 mmol/L (10-20); BUN (Urea Nitrogen) 43 mg/dL (8.4-25.7); Calc. Creatinine Clearance 39 mL/min (70-130); Calcium 7.8 mg/dL (7.8-10.44); Carbon Dioxide 21 mmol/L (23-31); Chloride 99 mmol/L (98-107); Estimated GFR 31; Globulin 2.9 g/dL (2.4-3.5); Glucose 99 mg/dL (83-110); Potassium 4.2 mmol/L (3.5-5.1); Protein, Total 6.3 g/dL (5.8-8.1); Sodium 133 mmol/L (136-145)
[2023-04-18 03:57] LABS: Bilirubin, Total 0.7 mg/dL (0.2-1.2)
[2023-04-18] MEDS: Cefepime 1 GM in Sodium Chloride 0.9% 100 ML IVPB SCH ×2 (04:55→17:21)
[2023-04-18] MEDS: Sodium Chloride 0.9% 1,000 ML IV SCH ×2 (06:18→15:09)
[2023-04-18] MEDS: cycloSPORINE, Modified 25 MG CAP PO SCH ×2 (10:02→21:15)
[2023-04-18] MEDS: Finasteride 5 MG TAB PO SCH (10:02)
[2023-04-18] MEDS: Calcium Carbonate 600 MG + Vit D TAB PO SCH ×2 (10:02→16:10)
[2023-04-18] MEDS: Mycophenolate DR 180 MG TAB PO SCH ×2 (10:02→21:15)
[2023-04-18] MEDS: predniSONE 5 MG TAB PO SCH (10:03)
[2023-04-18] MEDS: Labetalol HCl 100 MG TAB PO SCH ×2 (10:03→21:15)
[2023-04-18 10:52] LABS: Bilirubin Negative (Negative); Blood, Urine Small (Negative); Glucose, Urine (Dipstick) Negative (Negative); Ketone, Urine Negative (Negative); Leukocyte Negative (Negative); Nitrite Negative (Negative); Protein, Urine (Dipstick) Trace mg/dL (Neg-Trace); Specific Gravity, Urine 1.015 (1.005-1.030); Urobilinogen 0.2 mg/dL (Less than 2); pH, Urine 5.5 (5.0-9.0)
[2023-04-18 10:54] LABS: Clarity Clear (Clear)
[2023-04-18 10:57] LABS: Bacteria/HPF None Seen HPF (None Seen); RBC/HPF 0-3 HPF (0-3); Squamous Epithelial None Seen HPF (0-3); WBC/HPF 0-3 HPF (0-3)
[2023-04-18] MEDS: Atorvastatin Calcium 10 MG TAB PO SCH (21:14)
[2023-04-18 21:50] LABS: Hematocrit 29.8 % (42.0-52.0); Hemoglobin 8.9 g/dL (14.0-18.0); Platelet Count 109 10x3/uL (130-400)
[2023-04-18 22:15] LABS: Vancomycin, Random 14.7 ug/mL (See Comment)
[2023-04-18] MEDS ORDERED: Vancomycin HCl 750 MG in Sodium Chloride 0.9% 250 ML 250 ML IVPB SCH (22:30)
[2023-04-19] MEDS ORDERED: Transdermal Patch Removal TOP PRN (00:57)
[2023-04-19] MEDS: Sodium Chloride 0.9% 1,000 ML IV SCH ×2 (04:13→05:14)
[2023-04-19] MEDS ORDERED: Melatonin 3 MG TAB PO SCH (04:30)
[2023-04-19] MEDS: Cefepime 1 GM in Sodium Chloride 0.9% 100 ML IVPB SCH ×2 (05:13→18:05)
[2023-04-19] MEDS: Acetaminophen 325 MG TAB PO PRN ×2 (05:13→09:41)
[2023-04-19 05:22] LABS: #Monocytes 0.6 thou/uL (0.11-0.59); #Neutrophils 3.2 thou/uL (1.40-6.50); %Basophils 0.2 % (0.0-1.0); %Eosinophils 0.6 % (0.0-10.0); %Lymphocytes 17.3 % (21.0-51.0); %Monocytes 12.8 % (0.0-10.0); %Neutrophils 68.7 % (42.0-75.0); Hematocrit 30.2 % (42.0-52.0); Hemoglobin 8.8 g/dL (14.0-18.0); Mean Corpuscular HGB CONC 29.1 g/dL (32.0-36.0); Mean Corpuscular Hemoglobin 27.4 pg (27.0-31.0); Mean Corpuscular Volume 94.1 fl (78.0-98.0); Mean Platelet Volume 11.2 fL (7.4-10.4); RBC Distribution Width 15.7 % (11.5-14.5); Red Blood Cell (RBC) Count 3.21 mill/uL (4.70-6.10); White Blood Cell (WBC) Count 4.6 10x3/uL (4.8-10.8)
[2023-04-19 05:50] LABS: ALT (SGPT) Less than 7 U/L (8-55); AST (SGOT) 13 U/L (5-34); Albumin 3.6 g/dL (3.4-4.8); Alkaline Phosphatase 54 U/L (40-110); Anion Gap 14 mmol/L (10-20); BUN (Urea Nitrogen) 44 mg/dL (8.4-25.7); Bilirubin, Total 0.5 mg/dL (0.2-1.2); Calc. Creatinine Clearance 48 mL/min (70-130); Calcium 7.7 mg/dL (7.8-10.44); Carbon Dioxide 24 mmol/L (23-31); Chloride 102 mmol/L (98-107); Estimated GFR 36; Globulin 2.7 g/dL (2.4-3.5); Glucose 111 mg/dL (83-110); Potassium 4.1 mmol/L (3.5-5.1); Protein, Total 6.3 g/dL (5.8-8.1); Sodium 136 mmol/L (136-145)
[2023-04-19 06:16] LABS: Platelet Count 107 10x3/uL (130-400)
[2023-04-19] MEDS: Finasteride 5 MG TAB PO SCH (09:41)
[2023-04-19] MEDS: Calcium Carbonate 600 MG + Vit D TAB PO SCH ×2 (09:41→16:13)
[2023-04-19] MEDS: Mycophenolate DR 180 MG TAB PO SCH ×2 (09:41→21:07)
[2023-04-19] MEDS: predniSONE 5 MG TAB PO SCH (09:41)
[2023-04-19] MEDS: cycloSPORINE, Modified 25 MG CAP PO SCH ×2 (09:41→21:07)
[2023-04-19] MEDS: Labetalol HCl 100 MG TAB PO SCH ×2 (09:42→21:07)
[2023-04-19] MEDS ORDERED: Melatonin 3 MG TAB PO PRN (12:14)
[2023-04-19] MEDS ORDERED: Apixaban 5 MG TAB PO SCH ×2 (17:15→21:00)
[2023-04-19] MEDS ORDERED: traMADol HCl 50 MG TAB PO SCH (18:45)
[2023-04-19] MEDS ORDERED: hydrOXYzine 25 MG TAB PO SCH (21:00)
[2023-04-19] MEDS: Atorvastatin Calcium 10 MG TAB PO SCH (21:07)
[2023-04-20] MEDS: Sodium Chloride 0.9% 1,000 ML IV SCH ×3 (01:33→18:02)
[2023-04-20] MEDS ORDERED: Cyclobenzaprine 10 MG TAB PO SCH (05:15)
[2023-04-20] MEDS: Cefepime 1 GM in Sodium Chloride 0.9% 100 ML IVPB SCH ×2 (05:32→18:01)
[2023-04-20] MEDS: cycloSPORINE, Modified 25 MG CAP PO SCH ×2 (09:29→20:21)
[2023-04-20] MEDS: Labetalol HCl 100 MG TAB PO SCH ×2 (09:30→20:20)
[2023-04-20] MEDS: Calcium Carbonate 600 MG + Vit D TAB PO SCH ×2 (09:30→18:01)
[2023-04-20] MEDS: Finasteride 5 MG TAB PO SCH (09:30)
[2023-04-20] MEDS: Mycophenolate DR 180 MG TAB PO SCH ×2 (09:30→20:21)
[2023-04-20] MEDS: Apixaban 5 MG TAB PO SCH ×2 (09:31→20:20)
[2023-04-20] MEDS: predniSONE 5 MG TAB PO SCH (09:31)
[2023-04-20 15:18] LABS: #Monocytes 0.6 thou/uL (0.11-0.59); #Neutrophils 4.3 thou/uL (1.40-6.50); %Basophils 0.2 % (0.0-1.0); %Eosinophils 0.2 % (0.0-10.0); %Lymphocytes 11.4 % (21.0-51.0); %Monocytes 9.9 % (0.0-10.0); %Neutrophils 77.1 % (42.0-75.0); Hematocrit 34.4 % (42.0-52.0); Hemoglobin 9.8 g/dL (14.0-18.0); Mean Corpuscular HGB CONC 28.5 g/dL (32.0-36.0); Mean Corpuscular Hemoglobin 27.8 pg (27.0-31.0); Mean Corpuscular Volume 97.5 fl (78.0-98.0); Mean Platelet Volume 11.3 fL (7.4-10.4); Platelet Count 142 10x3/uL (130-400); RBC Distribution Width 15.8 % (11.5-14.5); Red Blood Cell (RBC) Count 3.53 mill/uL (4.70-6.10); White Blood Cell (WBC) Count 5.6 10x3/uL (4.8-10.8)
[2023-04-20 15:29] LABS: ALT (SGPT) 8 U/L (8-55); AST (SGOT) 19 U/L (5-34); Albumin 3.8 g/dL (3.4-4.8); Alkaline Phosphatase 53 U/L (40-110); Anion Gap 16 mmol/L (10-20); BUN (Urea Nitrogen) 40 mg/dL (8.4-25.7); Bilirubin, Total 0.6 mg/dL (0.2-1.2); Calc. Creatinine Clearance 65 mL/min (70-130); Calcium 8.1 mg/dL (7.8-10.44); Carbon Dioxide 18 mmol/L (23-31); Chloride 107 mmol/L (98-107); Estimated GFR 52; Globulin 3.1 g/dL (2.4-3.5); Glucose 95 mg/dL (83-110); Potassium 5.1 mmol/L (3.5-5.1); Protein, Total 6.9 g/dL (5.8-8.1); Sodium 136 mmol/L (136-145)
[2023-04-20 15:42] LABS: Anisocytosis SLIGHT = 6-15 cells HPF (0-5); Burr Cells SLIGHT = 2-5 cells HPF (0-1); CellaVision Operator ID LAB.MJL; Hypochromia SLIGHT = 6-15 cells HPF (0-5); Ovalocytes SLIGHT = 2-5 cells HPF (0-1); Platelet Adequacy Comment Platelets Normal; Poikilocytosis SLIGHT = 6-15 cells HPF (0-5); Polychromasia SLIGHT = 2-3 cells HPF (0-2); Tear Drops SLIGHT = 2-5 cells HPF (0-1)
[2023-04-20] MEDS: Atorvastatin Calcium 10 MG TAB PO SCH (20:20)
[2023-04-20] MEDS: hydrOXYzine 25 MG TAB PO SCH (20:20)
[2023-04-21 00:19] LABS: Hematocrit 32.2 % (42.0-52.0); Hemoglobin 9.2 g/dL (14.0-18.0); Platelet Count 148 10x3/uL (130-400)
[2023-04-21] MEDS: Cefepime 1 GM in Sodium Chloride 0.9% 100 ML IVPB SCH (05:01)
[2023-04-21] MEDS: Sodium Chloride 0.9% 1,000 ML IV SCH ×2 (05:01→14:45)
[2023-04-21] MEDS: Acetaminophen 325 MG TAB PO PRN (09:53)
[2023-04-21] MEDS: Finasteride 5 MG TAB PO SCH (09:54)
[2023-04-21] MEDS: predniSONE 5 MG TAB PO SCH (09:54)
[2023-04-21] MEDS: Apixaban 5 MG TAB PO SCH ×2 (09:54→21:43)
[2023-04-21] MEDS: Labetalol HCl 100 MG TAB PO SCH ×2 (09:54→21:44)
[2023-04-21] MEDS: Calcium Carbonate 600 MG + Vit D TAB PO SCH ×2 (09:54→18:00)
[2023-04-21] MEDS: cycloSPORINE, Modified 25 MG CAP PO SCH ×2 (09:55→21:43)
[2023-04-21] MEDS: Mycophenolate DR 180 MG TAB PO SCH ×2 (09:55→21:44)
[2023-04-21] MEDS ORDERED: Ondansetron ODT 4 MG TAB PO SCH (10:00)
[2023-04-21] MEDS: Cefepime 2 GM in Sodium Chloride 0.9% 100 ML IVPB SCH (18:00)
[2023-04-21 18:33] LABS: Hematocrit 36.3 % (42.0-52.0); Hemoglobin 9.8 g/dL (14.0-18.0); Manual Diff?? YES; Mean Corpuscular Hemoglobin 27.5 pg (27.0-31.0); Mean Corpuscular Volume 101.7 fl (78.0-98.0); Mean Platelet Volume 10.8 fL (7.4-10.4); Platelet Count 169 10x3/uL (130-400); RBC Distribution Width 15.9 % (11.5-14.5); Red Blood Cell (RBC) Count 3.57 mill/uL (4.70-6.10); White Blood Cell (WBC) Count 6.3 10x3/uL (4.8-10.8)
[2023-04-21 18:36] LABS: Delete Auto Diff?? YES
[2023-04-21 18:57] LABS: ALT (SGPT) 9 U/L (8-55); AST (SGOT) 17 U/L (5-34); Albumin 3.7 g/dL (3.4-4.8); Alkaline Phosphatase 57 U/L (40-110); Anion Gap 18 mmol/L (10-20); BUN (Urea Nitrogen) 41 mg/dL (8.4-25.7); Bilirubin, Total 0.5 mg/dL (0.2-1.2); Calc. Creatinine Clearance 62 mL/min (70-130); Calcium 8.3 mg/dL (7.8-10.44); Carbon Dioxide 18 mmol/L (23-31); Chloride 110 mmol/L (98-107); Estimated GFR 48; Glucose 93 mg/dL (83-110); Potassium 5.5 mmol/L (3.5-5.1); Protein, Total 6.7 g/dL (5.8-8.1); Sodium 140 mmol/L (136-145)
[2023-04-21 19:02] LABS: Anisocytosis SLIGHT = 6-15 cells HPF (0-5); Band 7 % (5-11); Burr Cells MODERATE= 6-15 cells HPF (0-1); CellaVision Operator ID LAB.MJL; Hypochromia SLIGHT = 6-15 cells HPF (0-5); Large Platelets 7.8 % (0-5); Lymphocytes 9 % (21-51); Metamyelocyte 4 % (0-0); Monocytes 9 % (0-10); Myelocyte 5 % (0-0); Neutrophil 67 % (42-75); Ovalocytes SLIGHT = 2-5 cells HPF (0-1); Platelet Adequacy Comment Platelets Normal; Poikilocytosis MODERATE=16-30 cells HPF (0-5); Polychromasia SLIGHT = 2-3 cells HPF (0-2); Schistocytes SLIGHT = 2-5 cells HPF (0-1); Tear Drops SLIGHT = 2-5 cells HPF (0-1); Total Cell Count 102
[2023-04-21] MEDS ORDERED: Furosemide 20 MG (2 mL) VIAL SLOW IVP SCH (20:45)
[2023-04-21 21:03] LABS: Actual Bicarbonate (HCO3a) 20.8 mEq/L (22-28); Base Excess (BEa) -10.1 mEq/L (-2.0 to +3.0); Calcium, Ionized (arterial) 1.26 mmol/L (1.12-1.30); Carboxyhemoglobin (COHb) 0.7 gm% (0.0-3.0); Hematocrit-ABG 32 % (42.0-52.0); Hemoglobin (Hb) 10.9 g/dL (14.0-18.0); O2 Tension (PaO2), arterial 71.7 mmHg (> 70.0); Potassium - ABG Lab 5.38 mmol/L (3.70-5.30)
[2023-04-21 21:05] LABS: ALV-art Gradient 119.875 mmHg (0-20); CO2 Tension 74.9 mmHg (35.0-45.0); Puncture Site RBA; pH, Arterial 7.061 (7.35-7.45)
[2023-04-21] MEDS ORDERED: Furosemide 40 MG (4 mL) VIAL SLOW IVP SCH ×2 (21:30→23:00)
[2023-04-21] MEDS: Atorvastatin Calcium 10 MG TAB PO SCH (21:43)
[2023-04-21] MEDS: hydrOXYzine 25 MG TAB PO SCH (21:44)
[2023-04-22 00:23] LABS: Actual Bicarbonate (HCO3a) 19.5 mEq/L (22-28); Base Excess (BEa) -9.7 mEq/L (-2.0 to +3.0); CO2 Tension 59.7 mmHg (35.0-45.0); Calcium, Ionized (arterial) 1.24 mmol/L (1.12-1.30); Carboxyhemoglobin (COHb) 0.9 gm% (0.0-3.0); Hematocrit-ABG 32 % (42.0-52.0); Hemoglobin (Hb) 10.8 g/dL (14.0-18.0); O2 Tension (PaO2), arterial 70.1 mmHg (> 70.0)
[2023-04-22] MEDS ORDERED: Polyethylene Glycol 3350 17 GM Packet PO PRN (00:23)
[2023-04-22 00:36] LABS: Puncture Site RRA
[2023-04-22 00:37] LABS: ALV-art Gradient 104.825 mmHg (0-20)
[2023-04-22 04:43] LABS: Hematocrit 33.2 % (42.0-52.0); Hemoglobin 9.4 g/dL (14.0-18.0); Manual Diff?? YES; Mean Corpuscular HGB CONC 28.3 g/dL (32.0-36.0); Mean Corpuscular Hemoglobin 27.6 pg (27.0-31.0); Mean Platelet Volume 10.7 fL (7.4-10.4); Platelet Count 198 10x3/uL (130-400); RBC Distribution Width 15.9 % (11.5-14.5); Red Blood Cell (RBC) Count 3.41 mill/uL (4.70-6.10); White Blood Cell (WBC) Count 7.4 10x3/uL (4.8-10.8)
[2023-04-22 04:45] LABS: Delete Auto Diff?? YES; Mean Corpuscular Volume 97.4 fl (78.0-98.0)
[2023-04-22 05:07] LABS: ALT (SGPT) 10 U/L (8-55); AST (SGOT) 16 U/L (5-34); Albumin 3.6 g/dL (3.4-4.8); Alkaline Phosphatase 54 U/L (40-110); Anion Gap 17 mmol/L (10-20); BUN (Urea Nitrogen) 49 mg/dL (8.4-25.7); Bilirubin, Total 0.4 mg/dL (0.2-1.2); Calc. Creatinine Clearance 53 mL/min (70-130); Calcium 8.7 mg/dL (7.8-10.44); Carbon Dioxide 21 mmol/L (23-31); Chloride 109 mmol/L (98-107); Estimated GFR 40; Globulin 3.1 g/dL (2.4-3.5); Glucose 88 mg/dL (83-110); Potassium 5.3 mmol/L (3.5-5.1); Protein, Total 6.7 g/dL (5.8-8.1); Sodium 142 mmol/L (136-145)
[2023-04-22 05:11] LABS: Band 3 % (5-11); CellaVision Operator ID LAB.CLH1; Hypochromia SLIGHT = 6-15 cells HPF (0-5); Lymphocytes 16 % (21-51); Metamyelocyte 1 % (0-0); Monocytes 9 % (0-10); Neutrophil 71 % (42-75); Platelet Adequacy Comment Platelets Normal; Polychromasia SLIGHT = 2-3 cells HPF (0-2); Total Cell Count 100
[2023-04-22] MEDS: Cefepime 2 GM in Sodium Chloride 0.9% 100 ML IVPB SCH ×2 (05:19→18:38)
[2023-04-22] MEDS ORDERED: Furosemide 40 MG (4 mL) VIAL SLOW IVP SCH (07:45)
[2023-04-22 07:56] LABS: Actual Bicarbonate (HCO3a) 19.9 mEq/L (22-28); Base Excess (BEa) -8.8 mEq/L (-2.0 to +3.0); CO2 Tension 56.6 mmHg (35.0-45.0); Calcium, Ionized (arterial) 1.22 mmol/L (1.12-1.30); Carboxyhemoglobin (COHb) 0.7 gm% (0.0-3.0); Hematocrit-ABG 30 % (42.0-52.0); Hemoglobin (Hb) 10.3 g/dL (14.0-18.0); O2 Tension (PaO2), arterial 86.9 mmHg (> 70.0); Potassium - ABG Lab 5.25 mmol/L (3.70-5.30)
[2023-04-22 07:57] LABS: Puncture Site RRA; pH, Arterial 7.163 (7.35-7.45)
[2023-04-22] MEDS ORDERED: Etomidate 40 MG (20 mL) VIAL ONE (08:10)
[2023-04-22] MEDS ORDERED: Ventilator Sedation Protocol 1 EACH FS SCH (08:11)
[2023-04-22] MEDS ORDERED: Etomidate 40 MG (20 mL) VIAL IVP SCH (08:15)
[2023-04-22] MEDS: Propofol 1,000 MG/100 ML VIAL IV PRN ×3 (08:20→20:08)
[2023-04-22] MEDS ORDERED: Morphine 2 MG/ML VIAL SLOW IVP PRN (08:30)
[2023-04-22] MEDS ORDERED: Lorazepam 2 MG/ML VIAL SLOW IVP PRN (08:30)
[2023-04-22] MEDS ORDERED: Fentanyl CADD 100 ML IV SCH (08:30)
[2023-04-22] MEDS ORDERED: Propofol BOLUS 1,000 MG/100 ML VIAL IV PRN (08:30)
[2023-04-22] MEDS ORDERED: DISCONTINUE PREVIOUS NARCOTIC PAIN MEDICATIONS AND BENZODIAZEPINES FS SCH (08:30)
[2023-04-22] MEDS ORDERED: Fentanyl BOLUS 250 ML IVPB PRN (08:30)
[2023-04-22 08:56] LABS: Actual Bicarbonate (HCO3a) 17.4 mEq/L (22-28); Base Excess (BEa) -6.2 mEq/L (-2.0 to +3.0); CO2 Tension 28.3 mmHg (35.0-45.0); Calcium, Ionized (arterial) 1.13 mmol/L (1.12-1.30); Carboxyhemoglobin (COHb) 0.4 gm% (0.0-3.0); Hematocrit-ABG 29 % (42.0-52.0); Hemoglobin (Hb) 9.9 g/dL (14.0-18.0); O2 Tension (PaO2), arterial 151.2 mmHg (> 70.0); Potassium - ABG Lab 5.14 mmol/L (3.70-5.30); pH, Arterial 7.407 (7.35-7.45)
[2023-04-22] MEDS: predniSONE 5 MG TAB PO SCH (08:56)
[2023-04-22] MEDS: Calcium Carbonate 600 MG + Vit D TAB PO SCH ×2 (08:56→18:38)
[2023-04-22 08:59] LABS: Puncture Site RRA
[2023-04-22 09:00] LABS: ALV-art Gradient 241.225 mmHg (0-20)
[2023-04-22] MEDS: Pantoprazole 40 MG VIAL IVP SCH (09:31)
[2023-04-22] MEDS: Apixaban 5 MG TAB PO SCH ×2 (09:32→20:32)
[2023-04-22] MEDS: Finasteride 5 MG TAB PO SCH (09:32)
[2023-04-22] MEDS: Senokot S 8.6-50 MG TAB PO SCH ×2 (09:32→20:31)
[2023-04-22] MEDS: Labetalol HCl 100 MG TAB PO SCH ×2 (09:33→20:31)
[2023-04-22] MEDS: Mycophenolate DR 180 MG TAB PO SCH ×2 (09:33→20:34)
[2023-04-22 17:22] LABS: Synovial Fluid, Protein 7.5 g/dL (Not Available)
[2023-04-22 17:30] LABS: RBC Count-Automated (BF) 151363 /cu.mm; WBC/Nucleated-Auto (BF) 569 /cu.mm
[2023-04-22 17:31] LABS: BF Color Red; Body Fluid Source Synovial Fluid; Clarity Cloudy/Turbid (Clear); Tube # EDTA
[2023-04-22 18:19] LABS: BF Segmented Neutrophils 75 %; Cell Count Non Hematic 20 %; Eosinophils 1 %; Lymphocytes 4 %
[2023-04-22] MEDS: cycloSPORINE, Modified 25 MG CAP PO SCH ×2 (18:37→20:33)
[2023-04-22] MEDS: hydrOXYzine 25 MG TAB PO SCH (20:31)
[2023-04-22] MEDS: Atorvastatin Calcium 10 MG TAB PO SCH (20:32)
[2023-04-23 00:07] LABS: Hemoglobin 8.1 g/dL (14.0-18.0); Platelet Count 194 10x3/uL (130-400)
[2023-04-23] MEDS: Propofol 1,000 MG/100 ML VIAL IV PRN ×3 (03:12→21:05)
[2023-04-23 05:52] LABS: #Eosinphils 0.1 thou/uL (0.0-0.7); #Monocytes 0.9 thou/uL (0.11-0.59); #Neutrophils 2.5 thou/uL (1.40-6.50); %Basophils 0.4 % (0.0-1.0); %Lymphocytes 25.8 % (21.0-51.0); %Monocytes 18.3 % (0.0-10.0); %Neutrophils 51.1 % (42.0-75.0); Hematocrit 26.9 % (42.0-52.0); Hemoglobin 8.3 g/dL (14.0-18.0); Mean Corpuscular HGB CONC 30.9 g/dL (32.0-36.0); Mean Corpuscular Hemoglobin 27.9 pg (27.0-31.0); Mean Corpuscular Volume 90.6 fl (78.0-98.0); Mean Platelet Volume 10.4 fL (7.4-10.4); Platelet Count 201 10x3/uL (130-400); RBC Distribution Width 15.7 % (11.5-14.5); Red Blood Cell (RBC) Count 2.97 mill/uL (4.70-6.10)
[2023-04-23 06:25] LABS: ALT (SGPT) 9 U/L (8-55); AST (SGOT) 17 U/L (5-34); Albumin 3.4 g/dL (3.4-4.8); Alkaline Phosphatase 47 U/L (40-110); Anion Gap 21 mmol/L (10-20); BUN (Urea Nitrogen) 48 mg/dL (8.4-25.7); Bilirubin, Total 0.6 mg/dL (0.2-1.2); Calc. Creatinine Clearance 47 mL/min (70-130); Calcium 8.9 mg/dL (7.8-10.44); Carbon Dioxide 18 mmol/L (23-31); Chloride 108 mmol/L (98-107); Estimated GFR 36; Globulin 2.7 g/dL (2.4-3.5); Glucose 70 mg/dL (83-110); Potassium 3.5 mmol/L (3.5-5.1); Protein, Total 6.1 g/dL (5.8-8.1); Sodium 143 mmol/L (136-145)
[2023-04-23] MEDS: Cefepime 2 GM in Sodium Chloride 0.9% 100 ML IVPB SCH (06:28)
[2023-04-23 07:25] LABS: Actual Bicarbonate (HCO3a) 18.1 mEq/L (22-28); Base Excess (BEa) -3.1 mEq/L (-2.0 to +3.0); Calcium, Ionized (arterial) 1.19 mmol/L (1.12-1.30); Carboxyhemoglobin (COHb) 0.3 gm% (0.0-3.0); Hematocrit-ABG 37 % (42.0-52.0); Hemoglobin (Hb) 12.6 g/dL (14.0-18.0); O2 Tension (PaO2), arterial 135.7 mmHg (> 70.0); Potassium - ABG Lab 3.59 mmol/L (3.70-5.30); pH, Arterial 7.515 (7.35-7.45)
[2023-04-23 07:26] LABS: ALV-art Gradient 120.875 mmHg (0-20); CO2 Tension 22.9 mmHg (35.0-45.0); Puncture Site RR
[2023-04-23] MEDS ORDERED: Sodium Chloride 0.9% 1,000 ML IV SCH (08:15)
[2023-04-23] MEDS ORDERED: Meropenem 1 GM in Sodium Chloride 0.9% 100 ML IVPB SCH (09:00)
[2023-04-23] MEDS: Pantoprazole 40 MG VIAL IVP SCH (09:16)
[2023-04-23] MEDS: Scopolamine 1 mg/72 hour Patch TD SCH (09:16)
[2023-04-23] MEDS: Calcium Carbonate 600 MG + Vit D TAB PO SCH ×2 (09:16→17:11)
[2023-04-23] MEDS: Labetalol HCl 100 MG TAB PO SCH ×2 (09:17→21:05)
[2023-04-23] MEDS: predniSONE 5 MG TAB PO SCH (09:17)
[2023-04-23] MEDS: Apixaban 5 MG TAB PO SCH (09:17)
[2023-04-23] MEDS: Senokot S 8.6-50 MG TAB PO SCH ×2 (09:17→21:05)
[2023-04-23] MEDS: Finasteride 5 MG TAB PO SCH (09:17)
[2023-04-23] MEDS ORDERED: CYCLOSPORINE 100 MG/ML PO SCH (11:00)
[2023-04-23 13:52] LABS: pH, Arterial 7.133 (7.35-7.45)
[2023-04-23] MEDS ORDERED: Meropenem 2 GM in Sodium Chloride 0.9% 100 ML IVPB SCH (14:00)
[2023-04-23] MEDS: Meropenem 1 GM in Sodium Chloride 0.9% 100 ML IVPB SCH (17:11)
[2023-04-23] MEDS: Atorvastatin Calcium 10 MG TAB PO SCH (21:05)
[2023-04-23] MEDS: hydrOXYzine 25 MG TAB PO SCH (21:05)
[2023-04-23] MEDS: CYCLOSPORINE 100 MG/ML PO SCH (21:05)
[2023-04-24] MEDS: Propofol 1,000 MG/100 ML VIAL IV PRN ×4 (03:14→19:56)
[2023-04-24] MEDS: Meropenem 1 GM in Sodium Chloride 0.9% 100 ML IVPB SCH ×2 (04:14→17:23)
[2023-04-24 04:45] LABS: #Eosinphils 0.1 thou/uL (0.0-0.7); #Neutrophils 3.9 thou/uL (1.40-6.50); %Basophils 0.3 % (0.0-1.0); %Eosinophils 0.8 % (0.0-10.0); %Lymphocytes 18.1 % (21.0-51.0); %Monocytes 16.5 % (0.0-10.0); %Neutrophils 61.4 % (42.0-75.0); Hematocrit 27.7 % (42.0-52.0); Hemoglobin 8.6 g/dL (14.0-18.0); Mean Corpuscular Hemoglobin 27.6 pg (27.0-31.0); Mean Corpuscular Volume 88.8 fl (78.0-98.0); Mean Platelet Volume 10.4 fL (7.4-10.4); Platelet Count 214 10x3/uL (130-400); RBC Distribution Width 15.7 % (11.5-14.5); Red Blood Cell (RBC) Count 3.12 mill/uL (4.70-6.10); White Blood Cell (WBC) Count 6.3 10x3/uL (4.8-10.8)
[2023-04-24 05:01] LABS: ALT (SGPT) 8 U/L (8-55); AST (SGOT) 18 U/L (5-34); Albumin 3.3 g/dL (3.4-4.8); Alkaline Phosphatase 48 U/L (40-110); Anion Gap 21 mmol/L (10-20); BUN (Urea Nitrogen) 36 mg/dL (8.4-25.7); Bilirubin, Total 0.7 mg/dL (0.2-1.2); Calc. Creatinine Clearance 56 mL/min (70-130); Calcium 8.7 mg/dL (7.8-10.44); Carbon Dioxide 19 mmol/L (23-31); Chloride 109 mmol/L (98-107); Estimated GFR 44; Globulin 2.9 g/dL (2.4-3.5); Glucose 99 mg/dL (83-110); Potassium 3.1 mmol/L (3.5-5.1); Protein, Total 6.2 g/dL (5.8-8.1); Sodium 146 mmol/L (136-145)
[2023-04-24 07:14] LABS: Actual Bicarbonate (HCO3a) 19.2 mEq/L (22-28); Calcium, Ionized (arterial) 1.16 mmol/L (1.12-1.30); Carboxyhemoglobin (COHb) 0.4 gm% (0.0-3.0); Hematocrit-ABG 26 % (42.0-52.0); O2 Tension (PaO2), arterial 78.2 mmHg (> 70.0); Potassium - ABG Lab 3.06 mmol/L (3.70-5.30); pH, Arterial 7.453 (7.35-7.45)
[2023-04-24 07:26] LABS: Puncture Site RRA
[2023-04-24] MEDS: Calcium Carbonate 600 MG + Vit D TAB PO SCH ×2 (07:56→17:24)
[2023-04-24] MEDS: predniSONE 5 MG TAB PO SCH (07:56)
[2023-04-24] MEDS ORDERED: Heparin 25,000 units/D5W 500 ML IV SCH (08:30)
[2023-04-24] MEDS ORDERED: Potassium Chloride 40 MEQ in Premix 1 BAG IVPB SCH (08:30)
[2023-04-24] MEDS ORDERED: Heparin 10,000 UNITS/ 10 ML VIAL SLOW IVP SCH (08:30)
[2023-04-24] MEDS ORDERED: Enoxaparin 60 MG (0.6 mL) SYRINGE SC SCH (09:00)
[2023-04-24 09:07] LABS: INR-International Normal Ratio 1.6; Prothrombin Time 20.2 sec (12.0-14.7)
[2023-04-24] MEDS: Sodium Chloride 0.45% 1,000 ML IV SCH (09:29)
[2023-04-24] MEDS: Finasteride 5 MG TAB PO SCH (09:30)
[2023-04-24] MEDS: Lactulose 20 GM (30 mL) UDCUP PO SCH (09:30)
[2023-04-24] MEDS: Labetalol HCl 100 MG TAB PO SCH ×2 (09:30→20:57)
[2023-04-24] MEDS: Metoclopramide 10 MG/10 ML UDCUP PER TUBE SCH ×2 (09:30→20:09)
[2023-04-24] MEDS: Pantoprazole 40 MG VIAL IVP SCH (09:30)
[2023-04-24] MEDS: Senokot S 8.6-50 MG TAB PO SCH ×2 (09:30→21:20)
[2023-04-24] MEDS: CYCLOSPORINE 100 MG/ML PO SCH ×2 (10:33→20:53)
[2023-04-24 17:05] LABS: PTT Greater than 250.0 sec (22.9-36.1)
[2023-04-24] MEDS: Atorvastatin Calcium 10 MG TAB PO SCH (20:09)
[2023-04-24] MEDS: hydrOXYzine 25 MG TAB PO SCH (20:53)
[2023-04-25 00:11] LABS: Hemoglobin 8.7 g/dL (14.0-18.0); Platelet Count 197 10x3/uL (130-400)
[2023-04-25] MEDS: Sodium Chloride 0.45% 1,000 ML IV SCH ×2 (03:40→15:53)
[2023-04-25 04:09] LABS: #Eosinphils 0.1 thou/uL (0.0-0.7); #Monocytes 0.7 thou/uL (0.11-0.59); #Neutrophils 3.6 thou/uL (1.40-6.50); %Basophils 0.2 % (0.0-1.0); %Eosinophils 1.8 % (0.0-10.0); %Lymphocytes 22.4 % (21.0-51.0); %Monocytes 12.1 % (0.0-10.0); %Neutrophils 60.2 % (42.0-75.0); Hematocrit 25.1 % (42.0-52.0); Hemoglobin 7.9 g/dL (14.0-18.0); Mean Corpuscular HGB CONC 31.5 g/dL (32.0-36.0); Mean Platelet Volume 10.1 fL (7.4-10.4); Platelet Count 197 10x3/uL (130-400); RBC Distribution Width 15.6 % (11.5-14.5); Red Blood Cell (RBC) Count 2.82 mill/uL (4.70-6.10)
[2023-04-25] MEDS: Meropenem 1 GM in Sodium Chloride 0.9% 100 ML IVPB SCH ×3 (04:56→21:54)
[2023-04-25 05:08] LABS: ALT (SGPT) 8 U/L (8-55); AST (SGOT) 18 U/L (5-34); Albumin 3.2 g/dL (3.4-4.8); Alkaline Phosphatase 49 U/L (40-110); Anion Gap 13 mmol/L (10-20); BUN (Urea Nitrogen) 32 mg/dL (8.4-25.7); Bilirubin, Total 0.6 mg/dL (0.2-1.2); Calc. Creatinine Clearance 64 mL/min (70-130); Calcium 8.4 mg/dL (7.8-10.44); Carbon Dioxide 25 mmol/L (23-31); Chloride 109 mmol/L (98-107); Estimated GFR 54; Globulin 2.8 g/dL (2.4-3.5); Glucose 108 mg/dL (83-110); Potassium 3.3 mmol/L (3.5-5.1); Sodium 144 mmol/L (136-145)
[2023-04-25] MEDS: Propofol 1,000 MG/100 ML VIAL IV PRN (06:28)
[2023-04-25 06:35] LABS: PTT Greater than 250.0 sec (22.9-36.1)
[2023-04-25 08:05] LABS: Actual Bicarbonate (HCO3a) 22.3 mEq/L (22-28); Base Excess (BEa) -1.5 mEq/L (-2.0 to +3.0); CO2 Tension 34.8 mmHg (35.0-45.0); Calcium, Ionized (arterial) 1.17 mmol/L (1.12-1.30); Carboxyhemoglobin (COHb) 0.9 gm% (0.0-3.0); Hematocrit-ABG 36 % (42.0-52.0); Hemoglobin (Hb) 12.4 g/dL (14.0-18.0); O2 Tension (PaO2), arterial 99.1 mmHg (> 70.0); Potassium - ABG Lab 3.33 mmol/L (3.70-5.30); pH, Arterial 7.425 (7.35-7.45)
[2023-04-25 08:17] LABS: Puncture Site RRA
[2023-04-25] MEDS: Senokot S 8.6-50 MG TAB PO SCH ×2 (09:22→21:55)
[2023-04-25] MEDS: Finasteride 5 MG TAB PO SCH (09:22)
[2023-04-25] MEDS: Pantoprazole 40 MG VIAL IVP SCH (09:22)
[2023-04-25] MEDS: Metoclopramide 10 MG/10 ML UDCUP PER TUBE SCH ×2 (09:22→21:55)
[2023-04-25] MEDS: Calcium Carbonate 600 MG + Vit D TAB PO SCH ×2 (09:22→17:30)
[2023-04-25] MEDS: predniSONE 5 MG TAB PO SCH (09:22)
[2023-04-25] MEDS: Labetalol HCl 100 MG TAB PO SCH ×2 (09:25→21:53)
[2023-04-25] MEDS: Lactulose 20 GM (30 mL) UDCUP PO SCH (09:26)
[2023-04-25 09:55] LABS: Magnesium 1.8 mg/dL (1.6-2.6)
[2023-04-25] MEDS ORDERED: Electrolyte Replacement Protocol 1 EACH FS SCH (10:30)
[2023-04-25] MEDS ORDERED: Magnesium 2 GM/50 ML(in water) 2 GM in Premix 1 BAG IVPB SCH (10:30)
[2023-04-25] MEDS ORDERED: Potassium Chloride 40 MEQ in Premix 1 BAG IVPB SCH (10:30)
[2023-04-25] MEDS: CYCLOSPORINE 100 MG/ML PO SCH ×2 (12:24→21:52)
[2023-04-25] MEDS ORDERED: DC Sedation Protocol FS ONE (14:35)
[2023-04-25] MEDS ORDERED: Lactulose 20 GM (30 mL) UDCUP PO SCH (15:00)
[2023-04-25] MEDS: Atorvastatin Calcium 10 MG TAB PO SCH (21:52)
[2023-04-25] MEDS: Enoxaparin 40 MG (0.4 mL) SYRINGE SC SCH (21:52)
[2023-04-25] MEDS: hydrOXYzine 25 MG TAB PO SCH (21:53)
[2023-04-26] MEDS: Sodium Chloride 0.45% 1,000 ML IV SCH (01:43)
[2023-04-26] MEDS: Acetaminophen 325 MG TAB PO PRN (03:32)
[2023-04-26] MEDS: Lidocaine 4% Patch TD PRN (03:34)
[2023-04-26 04:20] LABS: #Eosinphils 0.1 thou/uL (0.0-0.7); #Monocytes 0.7 thou/uL (0.11-0.59); #Neutrophils 3.6 thou/uL (1.40-6.50); %Basophils 0.3 % (0.0-1.0); %Eosinophils 1.9 % (0.0-10.0); %Lymphocytes 20.5 % (21.0-51.0); %Monocytes 12.7 % (0.0-10.0); %Neutrophils 63.2 % (42.0-75.0); Hematocrit 27.8 % (42.0-52.0); Hemoglobin 8.3 g/dL (14.0-18.0); Mean Corpuscular HGB CONC 29.9 g/dL (32.0-36.0); Mean Corpuscular Hemoglobin 27.5 pg (27.0-31.0); Mean Platelet Volume 10.8 fL (7.4-10.4); Platelet Count 199 10x3/uL (130-400); RBC Distribution Width 15.9 % (11.5-14.5); Red Blood Cell (RBC) Count 3.02 mill/uL (4.70-6.10); White Blood Cell (WBC) Count 5.8 10x3/uL (4.8-10.8)
[2023-04-26 04:34] LABS: Mean Corpuscular Volume 92.1 fl (78.0-98.0)
[2023-04-26 04:46] LABS: ALT (SGPT) 7 U/L (8-55); AST (SGOT) 15 U/L (5-34); Albumin 3.1 g/dL (3.4-4.8); Alkaline Phosphatase 47 U/L (40-110); Anion Gap 13 mmol/L (10-20); BUN (Urea Nitrogen) 24 mg/dL (8.4-25.7); Bilirubin, Total 0.8 mg/dL (0.2-1.2); Calc. Creatinine Clearance 70 mL/min (70-130); Calcium 8.4 mg/dL (7.8-10.44); Carbon Dioxide 26 mmol/L (23-31); Chloride 110 mmol/L (98-107); Estimated GFR 60; Globulin 2.8 g/dL (2.4-3.5); Glucose 90 mg/dL (83-110); Protein, Total 5.9 g/dL (5.8-8.1); Sodium 145 mmol/L (136-145)
[2023-04-26] MEDS: Meropenem 1 GM in Sodium Chloride 0.9% 100 ML IVPB SCH ×3 (05:13→20:34)
[2023-04-26] MEDS: HYDROcodone/Acetaminophen 5/325 mg Tablet PO PRN (09:17)
[2023-04-26] MEDS: Calcium Carbonate 600 MG + Vit D TAB PO SCH ×2 (09:17→17:21)
[2023-04-26] MEDS: Finasteride 5 MG TAB PO SCH (09:17)
[2023-04-26] MEDS: Labetalol HCl 100 MG TAB PO SCH ×2 (09:17→20:32)
[2023-04-26] MEDS: Senokot S 8.6-50 MG TAB PO SCH ×2 (09:17→20:33)
[2023-04-26] MEDS: Metoclopramide 10 MG/10 ML UDCUP PER TUBE SCH ×2 (09:18→20:33)
[2023-04-26] MEDS: predniSONE 5 MG TAB PO SCH (09:18)
[2023-04-26] MEDS: Pantoprazole 40 MG VIAL IVP SCH (09:18)
[2023-04-26] MEDS: Scopolamine 1 mg/72 hour Patch TD SCH (09:22)
[2023-04-26] MEDS: CYCLOSPORINE 100 MG/ML PO SCH ×2 (10:10→20:39)
[2023-04-26] MEDS: hydrOXYzine 25 MG TAB PO SCH (20:32)
[2023-04-26] MEDS: Atorvastatin Calcium 10 MG TAB PO SCH (20:33)
[2023-04-26] MEDS: Enoxaparin 40 MG (0.4 mL) SYRINGE SC SCH (20:39)
[2023-04-26] MEDS ORDERED: Apixaban 5 MG TAB PO SCH (21:00)
[2023-04-26 23:41] LABS: Hematocrit 30.9 % (42.0-52.0); Platelet Count 189 10x3/uL (130-400)
[2023-04-27] MEDS: Meropenem 1 GM in Sodium Chloride 0.9% 100 ML IVPB SCH ×3 (04:19→20:59)
[2023-04-27] MEDS: Labetalol HCl 100 MG TAB PO SCH ×2 (09:13→21:03)
[2023-04-27] MEDS: Calcium Carbonate 600 MG + Vit D TAB PO SCH ×2 (09:13→15:38)
[2023-04-27] MEDS: Senokot S 8.6-50 MG TAB PO SCH ×2 (09:13→21:05)
[2023-04-27] MEDS: predniSONE 5 MG TAB PO SCH (09:13)
[2023-04-27] MEDS: CYCLOSPORINE 100 MG/ML PO SCH ×2 (09:13→21:05)
[2023-04-27] MEDS: Pantoprazole 40 MG VIAL IVP SCH (09:14)
[2023-04-27] MEDS: Metoclopramide 10 MG/10 ML UDCUP PER TUBE SCH ×2 (09:14→21:05)
[2023-04-27] MEDS: Finasteride 5 MG TAB PO SCH (09:14)
[2023-04-27 09:44] LABS: #Eosinphils 0.1 thou/uL (0.0-0.7); #Monocytes 0.7 thou/uL (0.11-0.59); #Neutrophils 3.2 thou/uL (1.40-6.50); %Basophils 0.5 % (0.0-1.0); %Eosinophils 2.3 % (0.0-10.0); %Lymphocytes 26.5 % (21.0-51.0); %Monocytes 12.6 % (0.0-10.0); %Neutrophils 56.5 % (42.0-75.0); Hematocrit 33.7 % (42.0-52.0); Hemoglobin 9.8 g/dL (14.0-18.0); Mean Corpuscular HGB CONC 29.1 g/dL (32.0-36.0); Mean Corpuscular Hemoglobin 27.3 pg (27.0-31.0); Mean Corpuscular Volume 93.9 fl (78.0-98.0); Mean Platelet Volume 10.8 fL (7.4-10.4); Platelet Count 214 10x3/uL (130-400); RBC Distribution Width 15.9 % (11.5-14.5); Red Blood Cell (RBC) Count 3.59 mill/uL (4.70-6.10); White Blood Cell (WBC) Count 5.7 10x3/uL (4.8-10.8)
[2023-04-27 10:11] LABS: ALT (SGPT) 7 U/L (8-55); AST (SGOT) 15 U/L (5-34); Albumin 3.3 g/dL (3.4-4.8); Alkaline Phosphatase 53 U/L (40-110); Anion Gap 15 mmol/L (10-20); BUN (Urea Nitrogen) 25 mg/dL (8.4-25.7); Bilirubin, Total 0.5 mg/dL (0.2-1.2); Calc. Creatinine Clearance 68 mL/min (70-130); Calcium 8.5 mg/dL (7.8-10.44); Carbon Dioxide 25 mmol/L (23-31); Chloride 109 mmol/L (98-107); Estimated GFR 55; Globulin 3.2 g/dL (2.4-3.5); Glucose 113 mg/dL (83-110); Potassium 4.4 mmol/L (3.5-5.1); Protein, Total 6.5 g/dL (5.8-8.1); Sodium 145 mmol/L (136-145)
[2023-04-27] MEDS: Atorvastatin Calcium 10 MG TAB PO SCH (21:02)
[2023-04-27] MEDS: Enoxaparin 40 MG (0.4 mL) SYRINGE SC SCH (21:02)
[2023-04-27] MEDS: Acetaminophen 325 MG TAB PO PRN (21:05)
[2023-04-27] MEDS: hydrOXYzine 25 MG TAB PO SCH (21:05)
[2023-04-27] MEDS: HYDROcodone/Acetaminophen 5/325 mg Tablet PO PRN (21:16)
[2023-04-28] MEDS: Meropenem 1 GM in Sodium Chloride 0.9% 100 ML IVPB SCH ×3 (04:45→21:00)
[2023-04-28 06:25] LABS: #Eosinphils 0.1 thou/uL (0.0-0.7); #Monocytes 0.9 thou/uL (0.11-0.59); #Neutrophils 3.1 thou/uL (1.40-6.50); %Basophils 0.4 % (0.0-1.0); %Eosinophils 1.2 % (0.0-10.0); %Lymphocytes 25.2 % (21.0-51.0); %Monocytes 16.3 % (0.0-10.0); %Neutrophils 55.7 % (42.0-75.0); Hematocrit 31.5 % (42.0-52.0); Hemoglobin 8.9 g/dL (14.0-18.0); Mean Corpuscular HGB CONC 28.3 g/dL (32.0-36.0); Mean Corpuscular Hemoglobin 26.9 pg (27.0-31.0); Mean Corpuscular Volume 95.2 fl (78.0-98.0); Platelet Count 198 10x3/uL (130-400); RBC Distribution Width 15.9 % (11.5-14.5); Red Blood Cell (RBC) Count 3.31 mill/uL (4.70-6.10); White Blood Cell (WBC) Count 5.6 10x3/uL (4.8-10.8)
[2023-04-28 06:58] LABS: ALT (SGPT) 8 U/L (8-55); AST (SGOT) 18 U/L (5-34); Albumin 3.1 g/dL (3.4-4.8); Alkaline Phosphatase 50 U/L (40-110); Anion Gap 9 mmol/L (10-20); BUN (Urea Nitrogen) 26 mg/dL (8.4-25.7); Bilirubin, Total 0.5 mg/dL (0.2-1.2); Calc. Creatinine Clearance 68 mL/min (70-130); Calcium 8.3 mg/dL (7.8-10.44); Carbon Dioxide 29 mmol/L (23-31); CellaVision Operator ID LAB.GE; Chloride 111 mmol/L (98-107); Estimated GFR 57; Globulin 2.4 g/dL (2.4-3.5); Glucose 101 mg/dL (83-110); Hypochromia SLIGHT = 6-15 cells HPF (0-5); Large Platelets 15.8 % (0-5); Ovalocytes SLIGHT = 2-5 cells HPF (0-1); Platelet Adequacy Comment Platelets Normal; Polychromasia SLIGHT = 2-3 cells HPF (0-2); Potassium 4.7 mmol/L (3.5-5.1); Protein, Total 5.5 g/dL (5.8-8.1); Sodium 144 mmol/L (136-145); Vacuoles SLIGHT
[2023-04-28] MEDS ORDERED: Benzocaine/Menthol 1 LOZ LOZ PO PRN (07:49)
[2023-04-28] MEDS: Labetalol HCl 100 MG TAB PO SCH ×2 (08:34→20:57)
[2023-04-28] MEDS: predniSONE 5 MG TAB PO SCH (08:34)
[2023-04-28] MEDS: Pantoprazole 40 MG VIAL IVP SCH (08:34)
[2023-04-28] MEDS: Finasteride 5 MG TAB PO SCH (08:34)
[2023-04-28] MEDS: Calcium Carbonate 600 MG + Vit D TAB PO SCH ×2 (08:34→18:33)
[2023-04-28] MEDS: Metoclopramide 10 MG/10 ML UDCUP PER TUBE SCH ×2 (08:34→20:56)
[2023-04-28] MEDS: Senokot S 8.6-50 MG TAB PO SCH ×2 (08:34→20:57)
[2023-04-28] MEDS: CYCLOSPORINE 100 MG/ML PO SCH ×2 (10:07→21:01)
[2023-04-28] MEDS ORDERED: Lidocaine 1% PF 5 ML VIAL ONE (10:20)
[2023-04-28] MEDS ORDERED: Sodium Bicarbonate 0.5 MEQ/ML SDV 10 ML ONE (10:20)
[2023-04-28] MEDS ORDERED: Iopamidol 0 ML ONE (15:15)
[2023-04-28] MEDS: Atorvastatin Calcium 10 MG TAB PO SCH (20:56)
[2023-04-28] MEDS: hydrOXYzine 25 MG TAB PO SCH (20:57)
[2023-04-28] MEDS: Enoxaparin 40 MG (0.4 mL) SYRINGE SC SCH (21:01)
[2023-04-28] MEDS: HYDROcodone/Acetaminophen 5/325 mg Tablet PO PRN (21:02)
[2023-04-29] MEDS: Meropenem 1 GM in Sodium Chloride 0.9% 100 ML IVPB SCH ×3 (04:35→21:05)
[2023-04-29 04:39] LABS: #Eosinphils 0.1 thou/uL (0.0-0.7); #Monocytes 0.9 thou/uL (0.11-0.59); #Neutrophils 3.1 thou/uL (1.40-6.50); %Basophils 0.4 % (0.0-1.0); %Eosinophils 1.3 % (0.0-10.0); %Lymphocytes 25.6 % (21.0-51.0); %Monocytes 15.9 % (0.0-10.0); %Neutrophils 56.1 % (42.0-75.0); Hemoglobin 9.4 g/dL (14.0-18.0); Mean Corpuscular HGB CONC 28.5 g/dL (32.0-36.0); Mean Corpuscular Hemoglobin 27.6 pg (27.0-31.0); Mean Corpuscular Volume 96.8 fl (78.0-98.0); Mean Platelet Volume 10.4 fL (7.4-10.4); Platelet Count 194 10x3/uL (130-400); Red Blood Cell (RBC) Count 3.41 mill/uL (4.70-6.10); White Blood Cell (WBC) Count 5.5 10x3/uL (4.8-10.8)
[2023-04-29] MEDS: HYDROcodone/Acetaminophen 5/325 mg Tablet PO PRN (04:39)
[2023-04-29 05:17] LABS: ALT (SGPT) 8 U/L (8-55); AST (SGOT) 19 U/L (5-34); Albumin 3.2 g/dL (3.4-4.8); Alkaline Phosphatase 51 U/L (40-110); Anion Gap 11 mmol/L (10-20); BUN (Urea Nitrogen) 28 mg/dL (8.4-25.7); Bilirubin, Total 0.4 mg/dL (0.2-1.2); Calc. Creatinine Clearance 73 mL/min (70-130); Calcium 8.6 mg/dL (7.8-10.44); Carbon Dioxide 29 mmol/L (23-31); Chloride 109 mmol/L (98-107); Estimated GFR 61; Globulin 2.9 g/dL (2.4-3.5); Glucose 110 mg/dL (83-110); Potassium 4.9 mmol/L (3.5-5.1); Protein, Total 6.1 g/dL (5.8-8.1); Sodium 144 mmol/L (136-145)
[2023-04-29] MEDS: Senokot S 8.6-50 MG TAB PO SCH ×2 (08:34→21:05)
[2023-04-29] MEDS: Calcium Carbonate 600 MG + Vit D TAB PO SCH ×2 (08:35→16:52)
[2023-04-29] MEDS: predniSONE 5 MG TAB PO SCH (08:35)
[2023-04-29] MEDS: Labetalol HCl 100 MG TAB PO SCH ×2 (08:35→21:05)
[2023-04-29] MEDS: Pantoprazole 40 MG VIAL IVP SCH (08:35)
[2023-04-29] MEDS: Scopolamine 1 mg/72 hour Patch TD SCH (08:35)
[2023-04-29] MEDS: Finasteride 5 MG TAB PO SCH (08:35)
[2023-04-29] MEDS: CYCLOSPORINE 100 MG/ML PO SCH ×2 (08:36→21:05)
[2023-04-29] MEDS: Metoclopramide 10 MG/10 ML UDCUP PER TUBE SCH ×2 (08:36→21:06)
[2023-04-29] MEDS ORDERED: traMADol HCl 50 MG TAB PO PRN (09:22)
[2023-04-29] MEDS: Acetaminophen 500 MG TAB PO SCH ×2 (15:23→21:05)
[2023-04-29] MEDS: Enoxaparin 40 MG (0.4 mL) SYRINGE SC SCH (21:04)
[2023-04-29] MEDS: hydrOXYzine 25 MG TAB PO SCH (21:05)
[2023-04-29] MEDS: Atorvastatin Calcium 10 MG TAB PO SCH (21:05)
[2023-04-30 04:44] LABS: ALT (SGPT) 8 U/L (8-55); AST (SGOT) 15 U/L (5-34); Alkaline Phosphatase 44 U/L (40-110); Anion Gap 10 mmol/L (10-20); BUN (Urea Nitrogen) 30 mg/dL (8.4-25.7); Bilirubin, Total 0.4 mg/dL (0.2-1.2); Calc. Creatinine Clearance 78 mL/min (70-130); Calcium 8.4 mg/dL (7.8-10.44); Carbon Dioxide 29 mmol/L (23-31); Chloride 108 mmol/L (98-107); Estimated GFR 67; Globulin 2.7 g/dL (2.4-3.5); Glucose 95 mg/dL (83-110); Potassium 5.4 mmol/L (3.5-5.1); Protein, Total 5.7 g/dL (5.8-8.1); Sodium 142 mmol/L (136-145)
[2023-04-30] MEDS: Meropenem 1 GM in Sodium Chloride 0.9% 100 ML IVPB SCH ×3 (05:17→21:17)
[2023-04-30] MEDS: Lidocaine 4% Patch TD PRN (05:19)
[2023-04-30 06:28] LABS: #Eosinphils 0.1 thou/uL (0.0-0.7); #Monocytes 0.9 thou/uL (0.11-0.59); #Neutrophils 2.9 thou/uL (1.40-6.50); %Basophils 0.5 % (0.0-1.0); %Eosinophils 1.1 % (0.0-10.0); %Lymphocytes 29.6 % (21.0-51.0); %Monocytes 16.7 % (0.0-10.0); %Neutrophils 51.7 % (42.0-75.0); Hematocrit 29.6 % (42.0-52.0); Hemoglobin 8.4 g/dL (14.0-18.0); Mean Corpuscular HGB CONC 28.4 g/dL (32.0-36.0); Mean Corpuscular Hemoglobin 27.5 pg (27.0-31.0); Mean Platelet Volume 11.3 fL (7.4-10.4); Platelet Count 179 10x3/uL (130-400); RBC Distribution Width 16.1 % (11.5-14.5); Red Blood Cell (RBC) Count 3.05 mill/uL (4.70-6.10); White Blood Cell (WBC) Count 5.6 10x3/uL (4.8-10.8)
[2023-04-30 06:57] LABS: Anisocytosis SLIGHT = 6-15 cells HPF (0-5); CellaVision Operator ID lab.abc; Hypochromia SLIGHT = 6-15 cells HPF (0-5); Macrocytosis SLIGHT = 6-15 cells HPF (0-5); Platelet Adequacy Comment Platelets Normal; Polychromasia SLIGHT = 2-3 cells HPF (0-2)
[2023-04-30] MEDS: Calcium Carbonate 600 MG + Vit D TAB PO SCH ×2 (08:52→16:52)
[2023-04-30] MEDS: Acetaminophen 500 MG TAB PO SCH ×3 (08:53→21:19)
[2023-04-30] MEDS: predniSONE 5 MG TAB PO SCH (08:53)
[2023-04-30] MEDS: Senokot S 8.6-50 MG TAB PO SCH ×2 (08:54→21:18)
[2023-04-30] MEDS: Metoclopramide 10 MG/10 ML UDCUP PER TUBE SCH (08:54)
[2023-04-30] MEDS: Finasteride 5 MG TAB PO SCH (08:54)
[2023-04-30] MEDS: Labetalol HCl 100 MG TAB PO SCH ×2 (08:54→21:18)
[2023-04-30] MEDS: CYCLOSPORINE 100 MG/ML PO SCH (08:56)
[2023-04-30] MEDS ORDERED: LOKELMA 10 GM PACKET PO SCH (09:30)
[2023-04-30] MEDS ORDERED: Sodium Polystyrene Sulfonate 15 GM (60 mL) BOT PO SCH (09:45)
[2023-04-30] MEDS: hydrOXYzine 25 MG TAB PO SCH (21:18)
[2023-04-30] MEDS: Atorvastatin Calcium 10 MG TAB PO SCH (21:18)
[2023-04-30] MEDS: Enoxaparin 40 MG (0.4 mL) SYRINGE SC SCH (21:18)
[2023-04-30] MEDS: Polyethylene Glycol 3350 17 GM Packet PO SCH (21:19)
[2023-04-30] MEDS: cycloSPORINE, Modified 25 MG CAP PO SCH (21:24)
[2023-05-01] MEDS: Meropenem 1 GM in Sodium Chloride 0.9% 100 ML IVPB SCH ×2 (04:47→13:10)
[2023-05-01] MEDS ORDERED: LOKELMA 10 GM PACKET PO SCH (07:30)
[2023-05-01] MEDS: Labetalol HCl 100 MG TAB PO SCH (08:33)
[2023-05-01] MEDS: Polyethylene Glycol 3350 17 GM Packet PO SCH (08:33)
[2023-05-01] MEDS: Calcium Carbonate 600 MG + Vit D TAB PO SCH ×2 (08:33→17:31)
[2023-05-01] MEDS: Senokot S 8.6-50 MG TAB PO SCH (08:34)
[2023-05-01] MEDS: Finasteride 5 MG TAB PO SCH (08:34)
[2023-05-01] MEDS: cycloSPORINE, Modified 25 MG CAP PO SCH (08:34)
[2023-05-01] MEDS: predniSONE 5 MG TAB PO SCH (08:34)
[2023-05-01] MEDS: Acetaminophen 500 MG TAB PO SCH ×2 (08:36→13:14)
[2023-05-01] MEDS ORDERED: Furosemide 20 MG (2 mL) VIAL SLOW IVP SCH (09:00)
[2023-05-01 11:43] LABS: #Eosinphils 0.1 thou/uL (0.0-0.7); #Monocytes 0.8 thou/uL (0.11-0.59); #Neutrophils 4.6 thou/uL (1.40-6.50); %Basophils 0.6 % (0.0-1.0); %Lymphocytes 17.9 % (21.0-51.0); %Monocytes 12.3 % (0.0-10.0); %Neutrophils 67.8 % (42.0-75.0); Hematocrit 29.1 % (42.0-52.0); Hemoglobin 8.3 g/dL (14.0-18.0); Mean Corpuscular HGB CONC 28.5 g/dL (32.0-36.0); Mean Corpuscular Hemoglobin 27.9 pg (27.0-31.0); Mean Platelet Volume 10.7 fL (7.4-10.4); Platelet Count 187 10x3/uL (130-400); RBC Distribution Width 15.9 % (11.5-14.5); Red Blood Cell (RBC) Count 2.97 mill/uL (4.70-6.10); White Blood Cell (WBC) Count 6.8 10x3/uL (4.8-10.8)
[2023-05-01 11:44] VITALS: BMI 31.4
[2023-05-01 12:11] LABS: Anisocytosis SLIGHT = 6-15 cells HPF (0-5); CellaVision Operator ID LAB.KW3; Hypochromia SLIGHT = 6-15 cells HPF (0-5); Large Platelets 3.9 % (0-5); Macrocytosis SLIGHT = 6-15 cells HPF (0-5); Platelet Adequacy Comment Platelets Normal; Polychromasia SLIGHT = 2-3 cells HPF (0-2)
[2023-05-01 12:29] LABS: Anion Gap 10 mmol/L (10-20); BUN (Urea Nitrogen) 27 mg/dL (8.4-25.7); Calc. Creatinine Clearance 91 mL/min (70-130); Calcium 8.9 mg/dL (7.8-10.44); Carbon Dioxide 35 mmol/L (23-31); Chloride 104 mmol/L (98-107); Estimated GFR 78; Glucose 115 mg/dL (83-110); Iron 35 ug/dL (65-175); Iron Binding Capacity, Total 195 mcg/dL (261-462); Potassium 5.2 mmol/L (3.5-5.1); Sodium 144 mmol/L (136-145)
[2023-05-01] MEDS ORDERED: Sodium Polystyrene Sulfonate 15 GM (60 mL) BOT PO SCH (12:30)
[2023-05-01 16:41] VITALS: BP 136/60; TEMP 98
== END 2023-05-01 20:00 | DRG 871 ==
LOC: ERS 18:52 → ERHOLD 23:00 → 2NO 04-16 15:18 → CCU 04-21 22:57 → T4-A 04-26 11:32
PROVIDERS: ADMIT Emergency Medicine; ATTEND Emergency Medicine
PROC: 3E03329 Introduction of Other Anti-infective into Peripheral Vein, Percutaneous Approach (ICD-10-PCS; 2023-04-15)
PROC: 30233J1 Transfusion of Nonautologous Serum Albumin into Peripheral Vein, Percutaneous Approach (ICD-10-PCS; 2023-04-17)
PROC: 06HY33Z Insertion of Infusion Device into Lower Vein, Percutaneous Approach (ICD-10-PCS; principal; 2023-04-21)
PROC: 4A133R1 Monitoring of Arterial Saturation, Peripheral, Percutaneous Approach (ICD-10-PCS; 2023-04-21)
PROC: 5A09357 Assistance with Respiratory Ventilation, Less than 24 Consecutive Hours, Continuous Positive Airway Pressure (ICD-10-PCS; 2023-04-22)
PROC: 5A1945Z Respiratory Ventilation, 24-96 Consecutive Hours (ICD-10-PCS; 2023-04-22)
PROC: 0BH17EZ Insertion of Endotracheal Airway into Trachea, Via Natural or Artificial Opening (ICD-10-PCS; 2023-04-22)
PROC: 0S9C3ZX Drainage of Right Knee Joint, Percutaneous Approach, Diagnostic (ICD-10-PCS; 2023-04-23)
PROC: 05H533Z Insertion of Infusion Device into Right Subclavian Vein, Percutaneous Approach (ICD-10-PCS; 2023-04-28)
PROC: B5161ZA Fluoroscopy of Right Subclavian Vein using Low Osmolar Contrast, Guidance (ICD-10-PCS; 2023-04-28)
PROC: B546ZZA Ultrasonography of Right Subclavian Vein, Guidance (ICD-10-PCS; 2023-04-28)
DX: A41.52 Sepsis due to Pseudomonas (principal); I21.A1 Myocardial infarction type 2; I50.33 Acute on chronic diastolic (congestive) heart failure; J80 Acute respiratory distress syndrome; J15.1 Pneumonia due to Pseudomonas; T84.53XA Infection and inflammatory reaction due to internal right knee prosthesis, initial encounter; Z94.0 Kidney transplant status; I82.441 Acute embolism and thrombosis of right tibial vein; N17.9 Acute kidney failure, unspecified; D84.821 Immunodeficiency due to drugs; G93.40 Encephalopathy, unspecified; E87.4 Mixed disorder of acid-base balance; R65.20 Severe sepsis without septic shock; Z96.653 Presence of artificial knee joint, bilateral; I11.0 Hypertensive heart disease with heart failure; G50.0 Trigeminal neuralgia; T45.1X5A Adverse effect of antineoplastic and immunosuppressive drugs, initial encounter; G47.00 Insomnia, unspecified; E87.5 Hyperkalemia; Y83.8 Other surgical procedures as the cause of abnormal reaction of the patient, or of later complication, without mention of misadventure at the time of the procedure; Z88.2 Allergy status to sulfonamides; Z88.8 Allergy status to other drugs, medicaments and biological substances; Z79.899 Other long term (current) drug therapy; Z86.718 Personal history of other venous thrombosis and embolism; Z98.890 Other specified postprocedural states; Z11.52 Encounter for screening for COVID-19
CPT/HCPCS: 36415; 36416; 36569; 36600; 71045; 71250; 80048; 80053; 80158; 80202; 81001; 82728; 82805; 82945; 83540; 83550; 83605; 83735; 83880; 84145; 84157; 84484; 85025; 85060; 85379; 85610; 85730; 86140; 87040; 87070; 87077; 87086; 87149; 87186; 87205; 89051; 93005; 93010; 93306; 94002; 94003; 94660; 96374; 96375; C1751; C9113; J0692; J0696; J1200; J1644; J1650; J1940; J2185; J2270; J2405; J2704; J2765; J3370; J3475; J3480; J3490; J7050; J7502; J7512; J7515; J7518; P9047; Q0162; Q9967

== ENCOUNTER 2023-05-30 14:08 | Emergency (ER) | payer MEDICARE, OTHER ==
[2023-05-30 16:22] LABS: Bacteria/HPF None Seen HPF (None Seen); Bilirubin Negative (Negative); Blood, Urine 1+ (Negative); CAUTI Indications for Culture Alt mental st,lethar; Clarity Clear (Clear); Glucose, Urine (Dipstick) Normal (Negative); Ketone, Urine Negative (Negative); Leukocyte Negative Leu/uL (Negative); Nitrite Negative (Negative); Protein, Urine (Dipstick) 200 mg/dL (Neg-Trace); RBC/HPF 0-3 HPF (0-3); Specific Gravity, Urine 1.017 (1.002-1.036); Squamous Epithelial None Seen HPF (0-3); Urobilinogen 3 mg/dL (Less than 2); WBC/HPF 0-3 HPF (0-3)
[2023-05-30 16:26] LABS: Urine Culture Reflex No No
== END 2023-05-30 17:30 ==
LOC: ERS 14:08
DX: J81.0 Acute pulmonary edema (principal); R07.9 Chest pain, unspecified; R06.00 Dyspnea, unspecified; I10 Essential (primary) hypertension; E78.5 Hyperlipidemia, unspecified
CPT/HCPCS: 71045; 81001; 93005